=== PATIENT | female | born 1955 | race Caucasian/White ===

== ENCOUNTER 2025-02-23 06:00 | Outpatient (CLI) | payer MEDICARE, SELFPAY ==
--- OUTSIDE RECORDS SUMMARY | 2025-02-23 05:58 | XMS RPT_ITS | CCD ---
Author Organization [facility] Care Team Providers Care Pelts Skinner Name Role Phone LAYO LU Unavailable Unavailable SELF, SELF Unavailable Unavailable RADHA VILLATOROILY Unavailable Unavailable LAYO LU Unavailable Unavailable MarcelinoElise lucas II Unavailable Unavailable Unavailable Unavailable Unavailable VANIA ELIZABETH Attending Unavailable NO, PHYSICIAN Primary Care Unavailable EMPERATRIZ SEGURA Attending Unavailable Neeta Hernandez Primary Care Provider Pending Provider Unavailable Unavailable Unavailable Unavailable Unavailable Unavailable Free, Text Entry Unavailable Unavailable Jax Casey I Unavailable Unavailable Jonnie Whitehead Unavailable Unavailable Pending, Provider Primary Care Unavailable Pending, Provider Primary Care Unavailable Hamad, Dr. Cristina Attending Unavailable Pending, Provider Primary Care Unavailable Pending, Provider Primary Care Unavailable Marcelino II, Dr. Elise Reynoso Attending Unavai lable Pending, Provider Primary Care Unavailable Moomaw, Mr. Jax Blackmon Attending Unavailable Pending, Provider Primary Care Unavailable Josefa, Dr. Cristina Admitting Unavailable Hamad, Dr. Cristina Attending Unavailable Hamad, Dr. Cristina Attending Unavailable Pending, Provider Primary Care Unavailable Hamad, Dr. Cristina Admitting Unavailable Unavailable Primary Care Provider Unavailabl e Generic Provider MD, No Assigned Pcp Primary Car e Provider Unavailable ZENAIDA JOSHI Attending Unavailable BLAYNE LAWRENCE Attending Unavailable Anson Headley Attending Unavailable Anson Headley Referring Unavailable Care Physician, No Primary Primary Care Unava ilable Allergies Allergy Classification Reported Allergen(s) Allergy Type Date of Onset Reaction(s) Facility Opioid Agonists (1 source) Meperidine Drug Allergy 07-02-2005 [facility] Work Phone: (6 sources) gabapentin; Translations: [Neurontin] Drug Allergy Unknown [facility] Work Phone: (8 sources) Meperidine; Translations: [Demerol TABS] Drug Allergy 07-02-2005 Unknown [facility] Work Phone: (1 source) HYDROmorphone Drug Allergy Unknown [facility] (4 sources) gabapentin; Translations: [GABAPENTIN] Drug Allergy 01-05-2018 Unknown [facility] (4 sources) HYDROmorphone; Translations: [HYDROMORPHONE] Drug Allergy 04-12-2024 Unknown [facility] Work Phone: (2 sources) Meperidine; Translations: [MEPERIDINE] Drug Allergy 07-02-2005 [place] (1 source) gabapentin Drug Allergy 02-18-2025 [facility] (1 source) HYDROmorphone Drug Allergy 02-18-2025 [facility] Medications Current Medications Medication Drug Class(es) Dates Sig (Normalized) Sig (Original) acetaminophen 325 mg / oxyCODONE hydrochloride 5 mg oral tablet (2 sources) Opioid Agonist Start: 02-14-2025 take 1 tablet by mouth every six hours for pain oxyCODONE-acetaminophe n (Percocet) 5-325 mg tablet Indications: Ureterolithiasis Take 1 tablet by mouth every 6 hours if needed for severe pain (7 - 10). 12 tablet 02/14/2025 Active Start: 06-21-2005 PERCOCET 5 MG- 325 MG TAB 1 to 3 tablets daily as needed 0 06/21/2005 Active Comment on above: 1 to 3 tablets daily as needed amoxicillin 500 mg oral capsule (1 source) Penicillin-class Antibacterial Start: 025 amoxicillin (Amoxil) 500 mg capsule Take 1 capsule three times daily until gone for flare up 21 capsule 05/06/2024 Active amoxicillin 875 mg / clavulanate 125 mg oral tablet (1 source) Penicillin-class Antibacterial Start: 024 End: 024 take 1 tablet by mouth twice daily in the evening amoxicillin-pot clavulanate (Augmentin) 875-125 mg tablet Indications: Gingival swelling Take 1 tablet by mouth 2 times a day for 7 days. 14 tablet 04/12/2024 2:49 PM EST 04/12/2024 04/19/2024 Active cephalexin 500 mg oral capsule (1 source) Cephalosporin Antibacterial Start: End: take 1 capsule by mouth twice daily cephalexin (Keflex) 500 mg capsule Indications: Acute cystitis with hematuria Take 1 capsule (500 mg) by mouth 2 times a day for 10 days. 20 capsule 02/14/2025 02/24/2025 Active ketorolac tromethamine 10 mg oral tablet (3 sources) Nonsteroidal Anti-inflammatory Drug, Cyclooxygenase Inhibitor Start: take 1 tablet by mouth every six hours for pain ketorolac (Toradol) 10 mg tablet Indications: Ureterolithiasis Take 1 tablet (10 mg) by mouth every 6 hours if needed for moderate pain (4 - 6). 20 tablet 02/14/2025 Active Start: 02-13-2025 End: 02-14-2025 15 mg, intravenous, Once, On Fri02/14/25 at 0025, For 1 dose ondansetron 4 mg disintegrating oral tablet (3 sources) Serotonin-3 Receptor Antagonist Start: 02-14-2025 take 1 tablet by mouth every eight hours for nausea ondansetron ODT (Zofran-ODT) 4 mg disintegrating tablet Indications: Ureterolithiasis Dissolve 1 tablet (4 mg) in the mouth every 8 hours if needed for nausea or vomiting for up to 20 doses. 20 tablet 02/14/2025 Active Start: 02-13-2025 End: 02-14-2025 4 mg, intravenous, Once, On Fri02/14/25 at 0025, For 1 dose, When administering via IV Push, administer over 3-5 minutes. tamsulosin hydrochloride 0.4 mg oral capsule (1 source) alpha-Adrenergic Ciaran Start: 02-14-2025 take 1 capsule by mouth once daily before mealtime tamsulosin (Flomax) 0.4 mg 24 hr capsule Indications: Ureterolithiasis Take 1 capsule (0.4 mg) by mouth once daily in the morning. Take before meals. 10 capsule 02/14/2025 Active Start: 02-14-2025 take 1 capsule by [facility] once daily before mealtime tamsulosin (Flomax) 0.4 mg 24 hr capsule Indications: Ureterolithiasis Take 1 capsule (0.4 mg) by mouth once daily in the morning. Take before meals. 10 capsule 02/14/2025 Active terbinafine hydrochloride 10 mg/ml topical cream (1 source) Allylamine Antifungal Start: 12-29-2024 terbinafine (LamISIL ) 1 % cream Apply a thin film topically to the affected skin area(s) 2-3 times daily until symptoms resolve. 30 g 1 12/29/2024 12:03 PM EDT 12/29/2024 Active Completed/Discontinued Medications Medication Drug Class(es) Dates Sig (Normalized) Sig (Original) acetaminophen 500 mg oral tablet (1 source) Start: 06-21-2003 TYLENOL EX-STR 500MG CAPLET Take two(2) tablets every four(4) to six(6) hours as needed. 0 06/21/2003 Active Comment on above: Take two(2) tablets every four(4) to six(6) hours as needed. betamethasone 0.5 mg/ml / clotrimazole 10 mg/ml topical cream (2 sources) Azole Antifungal, Corticosteroid Start: 08-21-2020 Clotrimazole-Betam ethasone 1-0.05 % External Cream APPLY 1 [facility] Twice daily Quantity: 1 Refills: 2 Ordered: 21-Aug-2020 Elise Marcelino II, MD Start : 21-Aug-2020 Active cefTRIAXone 1000 mg injection (1 source) Cephalosporin Antibacterial Start: 02-13-2025 End: 02-14-2025 1 g, intravenous, at 100 mL/hr, Administer over 30 Minutes, Once, On 02/13/25 at 2340, For 1 dose, premix bag, Suspected Indication (Select all that apply): Urinary Tract Infection, Type of Therapy: Empiric, Type of Urinary Tract Infection: Complicated, Indications: Urinary Tract Infection diazePAM 5 mg oral tablet (1 source) Benzodiazepine Start: 11-12-2005 VALIUM 5 MG TAB as necessary 0 11/12/2005 Active Comment on above: as necessary Ibuprofen (1 source) Nonsteroidal Anti-inflammatory Drug Start: 06-21-2003 MOTRIN IB 200MG TABLET prn 0 06/21/2003 Active Comment on above: prn mirtazapine 30 mg oral tablet (1 source) Start: 06-21-2005 REMERON 30 MG TAB one tab at bedtime as needed 0 06/21/2005 Active Comment on above: one tab at bedtime a s needed 1 ml morphine sulfate 4 mg/ml prefilled syringe (1 source) Opioid Agonist Start: 02-14-2025 End: 02-14-2025 4 mg, intravenous, Once, On 02/14/25 at 0025, For 1 dose MULTIVITAMIN TAB (1 source) Start: 06-17-2005 MULTIVITAMIN TAB Take one(1) tablet daily. 0 06/17/2005 Active Comment on above: Take one(1) tablet d aily. No Reported Medications (3 sources) No Reported Medications Refills: 0 DO Active No Reported Medi cations Refills: 0 Active 1000 ml sodium chloride 9 mg /ml injection (1 source) Start: 02-13-2025 End: 02-14-2025 1,000 mL, intravenous, at 99 9 mL/hr, Administer over 1 Hours, Once, On 02/13/25 at 2100, For 1 dose NEGATED: Highlighted row has not occurred!No Current Medications (1 source) No Current Medic ations Problems Active Problems Problem Classification Problem Date Documented Date Episodic/Chronic Anxiety disorders (1 source) Anxiety disorder, unspecified; Translations: [Anxiety disorder, unspecified] Onset: 06-01-2022 Chronic Aortic; peripheral; and visceral artery aneurysms (1 source) Thoracic aortic ectasia; Translations: [Thoracic aortic ectasia] Onset: 06-01-2022 Chronic Calculus of urinary tract (12 sources) Calcium renal calculus ; Translations: [Calculus of kidney] Onset: 08-16-2021 Episodic Cardiac dysrhythmias (2 sources) Tachycardia; Translations: [Tachycardia, unspecified] 06-01-2022 Episodic Chronic obstructive pulmonary disease and bronchiectasis (1 source) Centrilobular emphysema; Translations: [Centrilobular emphysema] Onset: 05-17-2022 Chronic Conditions associated with dizziness or vertigo (2 sources) Dizziness and giddiness; Translations: [Dizziness and giddiness] Onset: 06-01-2022 Episodic Diverticulosis and diverticulitis (1 source) Diverticulosis of colon; Translations: [Diverticulosis of large intestine without perforation or abscess without bleeding] Onset: 07-16-2005 07-16-2005 Chronic Esophageal disorders (1 source) Gastroesophageal reflux disease; Translations: [Gastro-esophageal reflux disease without esophagitis] 06-17-2005 Chronic Genitourinary symptoms and ill-defined conditions (5 sources) Female stress incontinence; Translations: [Stress incontinence, female] Chronic Genitourinary symptoms and ill-defined conditions (5 sources) Nocturia; Translations: [Nocturia] Episodic Influenza (2 sources) Influenza 06-01-2022 Comment on above: FLU SX Malaise and fatigue (1 source) Other fatigue; Translations: [Other fatigue] Onset: 05-24-2022 Episodic Mycoses (2 sources) Mycosis; Translations: [Candidiasis of unspecified site] Episodic Non-Hodgkin`s lymphoma (10 sources) Non-Hodgkin's lymphoma (clinical); Translations: [Malignant lymphoma of extranodal AND/OR solid organ site] Onset: 05-18-2007 05-18-2007 Chronic Other diseases of kidney and ureters (1 source) Renal mass; Translations: [Other specified disorders of kidney and ureter] 02-14-2025 Chronic Other diseases of kidney and ureters (2 sources) Other specified disorders of kidney and ureter; Translations: [Other specified disorders of kidney and ureter] Onset: 02-13-2025 Chronic Other diseases of kidney and ureters (5 sources) Hydronephrosis; Translations: [Hydronephrosis] Episodic Other eye disorders (5 sources) Vitreous floaters; Translations: [Other vitreous opacities] Chronic Other liver diseases (1 source) Fatty (change of) liver, not elsewhere classified; Translations: [Fatty (change of) liver, not elsewhere classified] Onset: 05-17-2022 Chronic Other lower respiratory disease (2 sources) Shortness of breath; Translations: [Shortness of breath] Onset: 06-01-2022 Episodic Other nervous system disorders (1 source) Disorder of the peripheral nervous system; Translations: [Hereditary and idiopathic neuropathy, unspecified] Onset: 06-23-2006 06-23-2006 Chronic Other nervous system disorders (2 sources) Other disturbances of skin sensation; Translations: [Other disturbances of skin sensation] Onset: 06-01-2022 Episodic Other screening for suspected conditions (not mental disorders or infectious disease) (1 source) Other specified abnormal findings of blood chemistry; Translations: [Other specified abnormal findings of blood chemistry] Onset: 06-01-2022 Episodic Other skin disorders (1 source) Swollen gums; Translations: [Localized swelling, mass and lump, head] 04-12-2024 Episodic Residual codes; unclassified (1 source) Influenza-like symptoms; Translations: [Other general symptoms] 06-01-2022 Episodic Screening and history of mental health and substance abuse codes (1 source) Personal history of nicotine dependence; Translations: [Personal history of nicotine dependence] Onset: 06-01-2022 Episodic Unclassified (1 source) Flu-like symptoms 06-01-2022 Unclassified (1 source) Contact with and (suspected) exposure to COVID-19; Translations: [Contact with and (suspected) exposure to COVID-19] Onset: 06-01-2022 Urinary tract infections (3 sources) Acute cystitis; Translations: [Acute cystitis with hematuria] Onset: 02-13-2025 02-14-2025 Episodic Past or Other Problems Problem Classification Problem Date Documented Da te Episodic/Chronic Hemorrhoids (1 source) Internal hemorrhoids; Translations: [Other hemorrhoids] Onset: 07-16-2005 07-16-2005 Episodic Other connective tissue disease (1 source) Muscle pain; Translations: [Myalgia and myositis, unspecified] Onset: 08-11-2003 08-15-2003 Episodic Other diseases of kidney and ureters (1 source) Disorder of kidney and ureter, unspecified; Translations: [Disorder of kidney and ureter, unspecified] Onset: 08-16-2021 Episodic Other gastrointestinal disorders (1 source) Diarrhea; Translations: [Diarrhea, unspecified] Onset: 07-16-2005 07-16-2005 Episodic Other skin disorders (4 sources) Localized swelling, mass and lump, head; Translations: [Localized swelling, mass and lump, head] Onset: 04-12-2024 Episodic Other upper respiratory infections (3 sources) Acute maxillary sinusitis; Translations: [Acute maxillary sinusitis, unspecified] Onset: 04-12-2024 04-12-2024 Episodic NEGATED: Highlighted row has not occurred!Residual codes; unclassified (4 sources) Disease Episodic Results Test Name Value Interpretation Reference Range Facility Bacteriaon 02-13-2025 Bacteria identified Cx Nom (U) Test: Urine Culture Specimen Source: Clean Catch/Voided Specimen Type: Urine Specimen Date: 02/13/20252305 Result Date: 02/15/202544 Result Status: Final result Abnormal: No Resulting Lab: [facility] [id number] [facility] [id number] CULTURE No growth Normal [facility] Comment on above: Performed By: #### 6 30-4 #### MARION Eddy ([id number]) [facility] ([facility]) [address] [place] [id number] CBC W Auto Differential pane l (Bld)on 02-13-2025 Basophils (Bld) [#/Vol] 0.08 10*3/uL [facility] Basophils/100 WBC (Bld) 0.4 % 0.0 - 2.0 % [facility] Eosinophils (Bld) [#/Vol] 0.34 10*3/uL [facility] Eosinophils/100 WBC (Bld) 1.9 % 0.0 - 6.0 % [facility] Erythrocyte distribution width (RBC) [Ratio] 13.4 % 11.5 - 14.5 % [facility] Hematocrit (Bld) [Volume fraction] 43.0 % 36.0 - 46.0 % [facility] Hemoglobin (Bld) [Mass/Vol] 14.4 g/dL 12.0 - 16.0 g/dL [facility] Immature granulocytes (Bld) [#/Vol] 0.05 10*3/uL [facility] Immature granulocytes/100 WBC (Bld) 0.3 % 0.0 - 0.9 % [facility] Comment on above: Immature Granulocyte Count (IG) includes promyelocytes, myelocytes and metamyelocytes but does not include bands. Percent differential counts (%) should be interpreted in the context of the absolute cell counts (cells/UL). Interpretation and review of laboratory results Abnormal [facility] Lymphocytes (Bld) [#/Vol] 8.70 10*3/uL High [facility] Lymphocytes/100 WBC (Bld) 48.4 % 13.0 - 44.0 % [facility] MCH (RBC) [Entitic mass] 30.4 pg 26.0 - 34.0 pg [facility] MCHC (RBC) [Mass/Vol] 33.5 g/dL 32.0 - 36.0 g/dL [facility] MCV (RBC) [Entitic vol] 91 fL 80 - 100 fL [facility] Monocytes (Bld) [#/Vol] 1.34 10*3/uL High [facility] Monocytes/100 WBC (Bld) 7.5 % 2.0 - 10.0 % [facility] Neutrophils (Bld) [#/Vol] 7.46 10*3/uL [facility] Comment on above: Percent differential counts (%) should be interpreted in the context of the absolute cell counts (cells/uL). Neutrophils/100 WBC (Bld) 41.5 % 40.0 - 80.0 % [facility] Nucleated RBC/100 WBC (Bld) [Ratio] 0.0 % [facility] Platelets (Bld) [#/Vol] 407 10*3/uL [facility] RBC (Bld) [#/Vol] 4.74 10*6/uL [facility] WBC (Bld) [#/Vol] 18.0 10*3/uL High [facility] Basophils (Bld) [#/Vol] 0.08 x10*3/uL Normal 0.00-0.10 [facility] Comment on above: Performed By: #### 5 7021-8 #### YOSHI SANTIAGO ([id number]) [facility] ([facility]) [address] [place] [address] Basophils/100 WBC (Bld) 0.4 % Normal 0.0-2.0 [facility] Comment on above: Performed By: #### 5 7021-8 #### YOSHI SANTIAGO ([id number]) [facility] ([facility]) [address] [place] [address] 92829 Eosinophils (Bld) [#/Vol] 0.34 x10*3/uL Normal 0.00-0.70 [facility] Comment on above: Performed By: #### 5 7021-8 #### YOSHI SANTIAGO ([id number]) [facility] ([facility]) [address] [place] [address] 12596 Eosinophils/100 WBC (Bld) 1.9 % Normal 0.0-6.0 [facility] Comment on above: Performed By: #### 5 7021-8 #### YOSHI SANTIAGO ([id number]) [facility] ([facility]) [address] [place] [address]6459 Erythrocyte distribution width (RBC) [Ratio] 13.4 % Normal 11.5-14.5 [facility] Comment on above: Performed By: #### 5 7021-8 #### YOSHI SANTIAGO ([id number]) [facility] ([facility]) [address] [place] [address] 46491 Hematocrit (Bld) [Volume fraction] 43.0 % Normal 36.0-46.0 [facility] Comment on above: Performed By: #### 5 7021-8 #### YOSHI SANTIAGO ([id number]) [facility] ([facility]) [address] [place] [address]120 Hemoglobin (Bld) [Mass/Vol] 14.4 g/dL Normal 12.0-16.0 [facility] Comment on above: Performed By: #### 5 7021-8 #### YOSHI SANTIAGO ([id number]) [facility] ([facility]) [address] [place] [address] 22956 Immature granulocytes (Bld) [#/Vol] 0.05 x10*3/uL Normal 0.00-0.70 [facility] Comment on above: Performed By: #### 5 7021-8 #### YOSHI SANTIAGO ([id number]) [facility] ([facility]) [address] [place] [address] 08366 Immature granulocytes/100 WBC (Bld) 0.3 % Normal 0.0-0.9 [facility] Comment on above: Result Comment: Gisele ture Granulocyte Count (IG) includes promyelocytes, myelocytes and metamyelocytes but does not include bands. Percent differential counts (%) should be interpreted in the context of the absolute cell counts (cells/UL). Performed By: #### 5 7021-8 #### YOSHI SANTIAGO ([id number]) [facility] ([facility]) [address] [place] [address] 66561 Lymphocytes (Bld) [#/Vol] 8.70 x10*3/uL High 1.20-4.80 [facility] Comment on above: Performed By: #### 5 7021-8 #### YOSHI SANTIAGO ([id number]) [facility] ([facility]) [address] [place] [address] 56782 Lymphocytes/100 WBC (Bld) 48.4 % Normal 13.0-44.0 [facility] Comment on above: Performed By: #### 5 7021-8 #### YOSHI SANTIAGO ([id number]) [facility] ([facility]) [address] [place] [address] 69194 MCH (RBC) [Entitic mass] 30.4 pg Normal 26.0-34.0 [facility] Comment on above: Performed By: #### 5 7021-8 #### YOSHI SANTIAGO ([id number]) [facility] ([facility]) [address] [place] [address] 38050 MCHC (RBC) [Mass/Vol] 33.5 g/dL Normal 32.0-36.0 [facility] Comment on above: Performed By: #### 5 7021-8 #### YOSHI SANTIAGO ([id number]) [facility] ([facility]) [address] [place] [address] 03203 MCV (RBC) [Entitic vol] 91 fL Normal 80-100 [facility] Comment on above: Performed By: #### 5 7021-8 #### YOSHI SANTIAGO ([id number]) [facility] ([facility]) [address] [place] [address] 36218 Monocytes (Bld) [#/Vol] 1.34 x10*3/uL High 0.10-1.00 [facility] Comment on above: Performed By: #### 5 7021-8 #### YOSHI SANTIAGO ([id number]) [facility] ([facility]) [address] [place] [address] 70771 Monocytes/100 WBC (Bld) 7.5 % Normal 2.0-10.0 [facility] Comment on above: Performed By: #### 5 7021-8 #### YOSHI SANTIAGO ([id number]) [facility] ([facility]) [address] [place] [address] 33434 Neutrophils (Bld) [#/Vol] 7.46 x10*3/uL Normal 1.20-7.70 [facility] Comment on above: Result Comment: Perc ent differential counts (%) should be interpreted in the context of the absolute cell counts (cells/uL). Performed By: #### 5 7021-8 #### YOSHI SANTIAGO ([id number]) [facility] ([facility]) [address] [place] [address] 56891 Neutrophils/100 WBC (Bld) 41.5 % Normal 40.0-80.0 [facility] Comment on above: Performed By: #### 5 7021-8 #### YOSHI SANTIAGO ([id number]) [facility] ([facility]) [address] [place] [address] 36342 Nucleated RBC/100 WBC (Bld) [Ratio] 0.0 /100 WBCs Normal 0.0-0.0 [facility] Comment on above: Performed By: #### 5 7021-8 #### YOSHI SANTIAGO ([id number]) [facility] ([facility]) [address] [place] [address] 68482 Platelets (Bld) [#/Vol] 407 x10*3/uL Normal 150-450 [facility] Comment on above: Performed By: #### 5 7021-8 #### YOSHI SANTIAGO ([id number]) [facility] ([facility]) [address] [place] [address] 64949 RBC (Bld) [#/Vol] 4.74 x10*6/uL Normal 4.00-5.20 [facility] Comment on above: Performed By: #### 5 7021-8 #### YOSHI SANTIAGO ([id number]) [facility] ([facility]) [address] [place] [address] 28589 WBC (Bld) [#/Vol] 18.0 x10*3/uL High 4.4-11.3 [facility] Comment on above: Performed By: #### 5 7021-8 #### BELLE PAMELA ([id number]) [facility] ([facility]) [address] [place] [address] CT ABDOMEN PELVIS WO IV CONT [facility] 02-13-2025 CT ABDOMEN PELVIS WO IV CONTRAST Interpreted By: Helene Sun, STUDY: CT ABDOMEN PELVIS WO IV CONTRAST; 02/13/2025 9:41 pm INDICATION: Signs/Symptoms:Right lower flank and lower quadrant pain. COMPARISON: CT abdomen and pelvis 05/17/2022. CT angiogram chest 06/01/2022. ACCESSION NUMBER(S): [id number] ORDERING CLINICIAN: ZENAIDA JOSHI TECHNIQUE: CT of the abdomen and pelvis was performed with no contrast administration. Coronal and sagittal reformats were obtained. FINDINGS: LOWER CHEST: No focal consolidation or pleural effusion. ABDOMEN: LIVER: Unremarkable unenhanced appearance. BILE DUCTS: No obvious dilation. GALLBLADDER: Surgically absent. PANCREAS: No peripancreatic inflammatory changes. SPLEEN: Surgically absent. ADRENAL GLANDS: Unremarkable. KIDNEYS AND URETERS: There is mild right hydronephrosis and dilation of the proximal right ureter. There is 0.7 cm calculus at the proximal right ureter. No left hydronephrosis or hydroureter. There are bilateral renal calculi measuring 0.3 cm at the right kidney and up to 0.6 cm the left kidney. There is a 6.8 x 4.4 x 4.4 cm heterogeneous mass at the left kidney. BOWEL: The stomach is distended with enteric contents. No bowel obstruction. The appendix is normal. VESSELS: Mild atherosclerotic calcifications at the abdominal aorta and its branches. PELVIS: The urinary bladder is decompressed. The uterus is present. PERITONEUM/RETROPERITONEUM/ LYMPH NODES: No free fluid or free air. No retroperitoneal hemorrhage. No pathologically enlarged lymph nodes are identified. ABDOMINAL WALL: Postsurgical changes are noted at the anterior abdominal wall with small fat containing ventral hernias. There is a small fat containing umbilical hernia. BONE AND SOFT TISSUE: Multilevel degenerative changes at the spine. IMPRESSION 1. Right-sided obstructive uropathy with mild right hydronephrosis, dilation of the proximal right ureter and with a 0.7 cm calculus at the proximal right ureter. 2. 6.8 cm heterogeneous mass at the left kidney. This is considered renal cell carcinoma until proven otherwise. Urology consult recommended. 3. Bilateral nephrolithiasis. MACRO: Critical Finding: See findings. Notification was initiated on 02/14/2025 at 1:23 am by Helene Sun. (-YCF-) Instructions: See Findings. Signed by: Helene 02/14/2025 1:28 AM Dictation workstation: [id number] [facility] Comprehensive metabolic 2000 panelon 02-13-2025 Albumin BCP dye [Mass/Vol] 4.3 g/dL 3.4 - 5.0 g/dL [facility] ALP [Catalytic activity/Vol] 64 U/L 33 - 136 U/L [facility] ALT With P-5'-P [Catalytic activity/Vol] 11 U/L 7 - 45 U/L [facility] Comment on above: Patients treated wit h Sulfasalazine may generate falsely decreased results for ALT. Anion gap [Moles/Vol] 13 mmol/L 10 - 20 mmol/L [facility] AST With P-5'-P [Catalytic activity/Vol] 13 U/L 9 - 39 U/L [facility] Bilirubin [Mass/Vol] 0.5 mg/dL 0.0 - 1.2 mg/dL [facility] Calcium [Mass/Vol] 9.8 mg/dL 8.6 - 10. 3 mg/dL [facility] Chloride [Moles/Vol] 103 mmol/L 98 - 107 mmol/L [facility] CO2 [Moles/Vol] 27 mmol/L 21 - 32 mmol/L [facility] Creatinine [Mass/Vol] 0.91 mg/dL 0.50 - 1.05 mg/dL [facility] GFR/1.73 sq M.predicted among non-blacks MDRD (S/P/Bld) [Vol rate/Area] 69 mL/min/{1.73_m2} - PINF [facility] Comment on above: Calculations of eddi mated GFR are performed using the 2020 CKD-EPI Study Refit equation without the race variable for the IDMS-Traceable creatinine methods. https://jasn.asnjournals.org/content//ASN.389456971 8 Glucose [Mass/Vol] 146 mg/dL High 74 - 99 mg/dL [facility] Interpretation and review of laboratory results Abnormal [facility] Potassium [Moles/Vol] 3.8 mmol/L 3.5 - 5.3 mmol/L [facility] Protein [Mass/Vol] 6.9 g/dL 6.4 - 8.2 g/dL [facility] Sodium [Moles/Vol] 139 mmol/L 136 - 145 mmol/L [facility] Urea nitrogen [Mass/Vol] 15 mg/dL 6 - 23 mg/dL [facility] Albumin BCP dye [Mass/Vol] 4.3 g/dL Normal 3.4-5.0 [facility] Comment on above: Performed By: #### 2 4323-8 #### YOSHI SANTIAGO ([id number]) [facility] ([facility]) [address] [place] [address] ALP [Catalytic activity/Vol] 64 U/L Normal 33-136 [facility] Comment on above: Performed By: #### 2 4323-8 #### YOSHI SANTIAGO ([id number]) [facility] ([facility]) [address] [place] [address] ALT With P-5'-P [Catalytic activity/Vol] 11 U/L Normal 7-45 [facility] Comment on above: Result Comment: Isela ents treated with Sulfasalazine may generate falsely decreased results for ALT. Performed By: #### 2 4323-8 #### YOSHI SANTIAGO ([id number]) [facility] ([facility]) [address] [place] [address] 02268 Anion gap [Moles/Vol] 13 mmol/L Normal 10-20 [facility] Comment on above: Performed By: #### 2 4323-8 #### YOSHI SANTIAGO ([id number]) [facility] ([facility]) [address] [place] [address] 28895 AST With P-5'-P [Catalytic activity/Vol] 13 U/L Normal 9-39 [facility] Comment on above: Performed By: #### 2 4323-8 #### YOSHI SANTIAGO ([id number]) [facility] ([facility]) [address] [place] [address] Bilirubin [Mass/Vol] 0.5 mg/dL Normal 0.0-1.2 [facility] Comment on above: Performed By: #### 2 4323-8 #### YOSHI SANTIAGO ([id number]) [facility] ([facility]) [address] [place] [address] Calcium [Mass/Vol] 9.8 mg/dL Normal 8.6-10.3 [facility] Comment on above: Performed By: #### 2 4323-8 #### YOSHI SANTIAGO ([id number]) [facility] ([facility]) [address] [place] [address]9821 Chloride [Moles/Vol] 103 mmol/L Normal 98-107 [facility] Comment on above: Performed By: #### 2 4323-8 #### YOSHI SANTIAGO ([id number]) [facility] ([facility]) [address] [place] [address] CO2 [Moles/Vol] 27 mmol/L Normal 21-32 [facility] Comment on above: Performed By: #### 2 4323-8 #### YOSHI SANTIAGO ([id number]) [facility] ([facility]) [address] [place] [address] 77978 Creatinine [Mass/Vol] 0.91 mg/dL Normal 0.50-1.05 [facility] Comment on above: Performed By: #### 2 4323-8 #### YOSHI SANTIAGO ([id number]) [facility] ([facility]) [address] [place] [address] 05942 Glomerular filtration rate 69 mL/min/1.73m*2 Normal >60 [facility] Comment on above: Result Comment: Calc ulations of estimated GFR are performed using the 2020 CKD-EPI Study Refit equation without the race variable for the IDMS-Traceable creatinine methods. https://jasn.asnjournals.org/content//ASN.985503896 8 Performed By: #### 2 4323-8 #### YOSHI SANTIAGO ([id number]) [facility] ([facility]) [address] [place] [address] 00334 Glucose [Mass/Vol] 146 mg/dL High 74-99 [facility] Comment on above: Performed By: #### 2 4323-8 #### YOSHI SANTIAGO ([id number]) [facility] ([facility]) [address] [place] [address] 65865 Potassium [Moles/Vol] 3.8 mmol/L Normal 3.5-5.3 [facility] Comment on above: Performed By: #### 2 3-8 #### YOSHI SANTIAGO ([id number]) [facility] ([facility]) [address] [place] [address] 87848 Protein [Mass/Vol] 6.9 g/dL Normal 6.4-8.2 [facility] Comment on above: Performed By: #### 2 3-8 #### YOSHI SANTIAGO ([id number]) [facility] ([facility]) [address] [place] [address] 60122 Sodium [Moles/Vol] 139 mmol/L Normal 136-145 [facility] Comment on above: Performed By: #### 2 4323-8 #### YOSHI SANTIAGO ([id number]) [facility] ([facility]) [address] [place] [address] 98484 Urea nitrogen [Mass/Vol] 15 mg/dL Normal 6-23 [facility] Comment on above: Performed By: #### 2 4323-8 #### YOSHI SANTIAGO ([id number]) [facility] ([facility]) [address] [place] [address] 53176 No Panel Informationon 02-13 Interpretation and review of laboratory results Abnormal [facility] Urinalysis complete W Reflex Culture panel (U)on 02-13-2025 Appearance (U) Ex.Turbid Abnormal Clear [facility] Bilirubin (U) [Mass/Vol] Negative NEGATIVE mg/dL [facility] Color (U) Light-Walton Abnormal Light-Yellow , Yellow, Dark-Yellow [facility] Glucose Auto test strip (U) [Mass/Vol] Normal Normal mg/dL [facility] Ketones (U) [Mass/Vol] TRACE Abnormal NEGATIVE mg/dL [facility] Leukocyte esterase Auto test strip Ql (U) 25 Merlin/uL Abnormal NEGATIVE [facility] Nitrite Auto test strip Ql (U) Negative NEGATIVE [facility] pH (U) 5.5 [pH] 5.0, 5.5, 6.0, 6.5, 7.0, 7.5, 8.0 [facility] Protein (U) [Mass/Vol] 100 (2+) Abnormal NEGATIVE, 10 (TRACE), 20 (TRACE) mg/dL [facility] RBC (U) [#/Vol] OVER (3+) Abnormal NEGATIVE mg/dL [facility] Specific gravity (U) [Rel density] 1.028 1.005 - 1.035 [facility] Urobilinogen (U) [Mass/Vol] Normal Normal mg/dL [facility] OVER is reported whe n the result is greater than the clinically reportable range. [facility] Appearance (U) Ex.Turbid Normal Clear [facility] Comment on above: Order Comment: OVER is reported when the result is greater than the clinically reportable range. Performed By: #### 5 8077-9 #### YOSHI SANTIAGO ([id number]) [facility] ([facility]) [address] [place] [address] Bilirubin (U) [Mass/Vol] Negative Normal NEGATIVE [facility] Comment on above: Order Comment: OVER is reported when the result is greater than the clinically reportable range. Performed By: #### 5 8077-9 #### YOSHI SANTIAGO ([id number]) [facility] ([facility]) [address] [place] [address] 99041 Color (U) Light-Walton Normal Light-Yellow , Yellow, Dark-Yellow [facility] Comment on above: Order Comment: OVER is reported when the result is greater than the clinically reportable range. Performed By: #### 5 8077-9 #### YOSHI SANTIAGO ([id number]) [facility] ([facility]) [address] [place] [address] Glucose Auto test strip (U) [Mass/Vol] Normal Normal Normal [facility] Comment on above: Order Comment: OVER is reported when the result is greater than the clinically reportable range. Performed By: #### 5 8077-9 #### YOSHI SANTIAGO ([id number]) [facility] ([facility]) [address] [place] [address] Ketones (U) [Mass/Vol] TRACE Abnormal NEGATIVE [facility] Comment on above: Order Comment: OVER is reported when the result is greater than the clinically reportable range. Performed By: #### 5 8077-9 #### YOSHI SANTIAGO ([id number]) [facility] ([facility]) [address] [place] [address] Leukocyte esterase Auto test strip Ql (U) 25 Merlin/uL Abnormal NEGATIVE [facility] Comment on above: Order Comment: OVER is reported when the result is greater than the clinically reportable range. Performed By: #### 5 8077-9 #### YOSHI SANTIAGO ([id number]) [facility] ([facility]) [address] [place] [address] Nitrite Auto test strip Ql (U) Negative Normal NEGATIVE [facility] Comment on above: Order Comment: OVER is reported when the result is greater than the clinically reportable range. Performed By: #### 5 8077-9 #### YOSHI SANTIAOG ([id number]) [facility] ([facility]) [address] [place] [address] pH (U) 5.5 [pH] Normal 5.0, 5.5, 6.0, 6.5, 7.0, 7.5, 8.0 [facility] Comment on above: Order Comment: OVER is reported when the result is greater than the clinically reportable range. Performed By: #### 5 8077-9 #### YOSHI SANTIAGO ([id number]) [facility] ([place] [address] Protein (U) [Mass/Vol] 100 (2+) Abnormal NEGATIVE, 10 (TRACE), 20 (TRACE) [facility] Comment on above: Order Comment: OVER is reported when the result is greater than the clinically reportable range. Performed By: #### 5 8077-9 #### YOSHI SANTIAGO ([id number]) [facility] ([facility]) [address] [place] [address] RBC (U) [#/Vol] OVER (3+) Abnormal NEGATIVE [facility] Comment on above: Order Comment: OVER is reported when the result is greater than the clinically reportable range. Performed By: #### 5 8077-9 #### YOSHI SANTIAGO ([id number]) [facility] ([facility]) [address] [place] [address] Specific gravity (U) [Rel density] 1.028 Normal 1.005-1.035 [facility] Comment on above: Order Comment: OVER is reported when the result is greater than the clinically reportable range. Performed By: #### 5 8077-9 #### YOSHI SANTIAGO ([id number]) [facility] ([facility]) [address] [place] [address] Urobilinogen (U) [Mass/Vol] Normal Normal Normal [facility] Comment on above: Order Comment: OVER is reported when the result is greater than the clinically reportable range. Performed By: #### 5 8077-9 #### YOSHI SANTIAGO ([id number]) [facility] ([facility]) [address] [place] [address] Urinalysis microscopic panel Auto Ql (U)on 02-13-2025 Calcium oxalate crystals Computer assisted (U) [#/Area] 1+ NONE, 1+ /HPF [facility] Epithelial cells.squamous Auto (Urine sed) [#/Area] 1-9 (SPARSE) Reference range not established. /HPF [facility] Mucus Auto (Urine sed) [#/Area] 2+ Reference range not established. /LPF [facility] RBC Auto (Urine sed) [#/Area] >20 Abnormal NONE, 1-2, 3-5 /HPF [facility] WBC Auto (Urine sed) [#/Area] 11-20 Abnormal 1-5, NONE /HPF [facility] Yeast.budding Computer assisted (U) [#/Area] PRESENT Abnormal NONE /HPF [facility] Calcium oxalate crystals Computer assisted (U) [#/Area] 1+ /HPF Normal NONE, 1+ [facility] Comment on above: Performed By: #### 5 3315-8 #### YOSHI SANTIAGO ([id number]) [facility] ([facility]) [address] [place] [address] Epithelial cells.squamous Auto (Urine sed) [#/Area] 1-9 (SPARSE) Normal Reference range not established. [facility] Comment on above: Performed By: #### 5 5-8 #### YOSHI SANTIAGO ([id number]) [facility] ([facility]) [address] [place] [address] Mucus Auto (Urine sed) [#/Area] 2+ /LPF Normal Reference range not established. [facility] Comment on above: Performed By: #### 5 5-8 #### YOSHI SANTIAGO ([id number]) [facility] ([facility]) [address] [place] [address] RBC Auto (Urine sed) [#/Area] >20 Abnormal NONE, 1-2, 3-5 [facility] Comment on above: Performed By: #### 5 5-8 #### YOSHI SANTIAGO ([id number]) [facility] ([facility]) [address] [place] [address] 84481 WBC Auto (Urine sed) [#/Area] 11-20 Abnormal 1-5, NONE [facility] Comment on above: Performed By: #### 5 5-8 #### YOSHI SNATIAGO ([id number]) [facility] ([facility]) [address] [place] [address] Yeast.budding Computer assisted (U) [#/Area] PRESENT Abnormal NONE [facility] Comment on above: Performed By: #### 5 5-8 #### YOSHI SANTIAGO ([id number]) [facility] ([facility]) [address] [place] [address] 70849 CBC W Auto Differential pane l (Bld)on 04-12-2024 Basophils (Bld) [#/Vol] 0.08 x10*3/uL Normal 0.00-0.10 [facility] Comment on above: Performed By: #### 5 7021-8 #### YOSHI SANTIAGO ([id number]) [facility] ([facility]) [address] [place] [address] 65123 Basophils/100 WBC (Bld) 0.6 % Normal 0.0-2.0 [facility] Comment on above: Performed By: #### 5 7021-8 #### YOSHI SANTIAGO ([id number]) [facility] ([facility]) [address] [place] [address] 49166 Eosinophils (Bld) [#/Vol] 0.30 x10*3/uL Normal 0.00-0.70 [facility] Comment on above: Performed By: #### 5 7021-8 #### YOSHI SANTIAGO ([id number]) [facility] ([facility]) [address] [place] [address] 92457 Eosinophils/100 WBC (Bld) 2.1 % Normal 0.0-6.0 [facility] Comment on above: Performed By: #### 5 7021-8 #### YOSHI SANTIAGO ([id number]) [facility] ([facility]) [address] [place] [address] 96160 Erythrocyte distribution width (RBC) [Ratio] 13.7 % Normal 11.5-14.5 [facility] Comment on above: Performed By: #### 5 7021-8 #### YOSHI SANTIAGO ([id number]) [facility] ([facility]) [address] [place] [address] 77515 Hematocrit (Bld) [Volume fraction] 46.0 % Normal 36.0-46.0 [facility] Comment on above: Performed By: #### 5 7021-8 #### YOSHI SANTIAGO ([id number]) [facility] ([facility]) [address] [place] [address] 81470 Hemoglobin (Bld) [Mass/Vol] 14.7 g/dL Normal 12.0-16.0 [facility] Comment on above: Performed By: #### 5 7021-8 #### YOSHI SANTIAGO ([id number]) [facility] ([facility]) [address] [place] [address] 19283 Immature granulocytes (Bld) [#/Vol] 0.03 x10*3/uL Normal 0.00-0.70 [facility] Comment on above: Performed By: #### 5 7021-8 #### YOSHI SANTIAGO ([id number]) [facility] ([facility]) [address] [place] [address] 04076 Immature granulocytes/100 WBC (Bld) 0.2 % Normal 0.0-0.9 [facility] Comment on above: Result Comment: Gisele ture Granulocyte Count (IG) includes promyelocytes, myelocytes and metamyelocytes but does not include bands. Percent differential counts (%) should be interpreted in the context of the absolute cell counts (cells/UL). Performed By: #### 5 7021-8 #### YOSHI SANTIAGO ([id number]) [facility] ([facility]) [address] [place] [address] 17616 Lymphocytes (Bld) [#/Vol] 8.34 x10*3/uL High 1.20-4.80 [facility] Comment on above: Performed By: #### 5 7021-8 #### YOSHI SANTIAGO ([id number]) [facility] ([facility]) [address] [place] [address] 42592 Lymphocytes/100 WBC (Bld) 57.6 % Normal 13.0-44.0 [facility] Comment on above: Performed By: #### 5 7021-8 #### YOSHI SANTIAGO ([id number]) [facility] ([facility]) [address] [place] [address] 06706 MCH (RBC) [Entitic mass] 30.3 pg Normal 26.0-34.0 [facility] Comment on above: Performed By: #### 5 7021-8 #### YOSHI SANTIAGO ([id number]) [facility] ([facility]) [address] [place] [address] 51325 MCHC (RBC) [Mass/Vol] 32.0 g/dL Normal 32.0-36.0 [facility] Comment on above: Performed By: #### 5 7021-8 #### YOSHI SANTIAGO ([id number]) [facility] ([facility]) [address] [place] [address] 25669 MCV (RBC) [Entitic vol] 95 fL Normal 80-100 [facility] Comment on above: Performed By: #### 5 7021-8 #### YOSHI SANTIAGO ([id number]) [facility] ([facility]) [address] [place] [address] 76585 Monocytes (Bld) [#/Vol] 1.17 x10*3/uL High 0.10-1.00 [facility] Comment on above: Performed By: #### 5 7021-8 #### YOSHI SANTIAGO ([id number]) [facility] ([facility]) [address] [place] [address] 48792 Monocytes/100 WBC (Bld) 8.1 % Normal 2.0-10.0 [facility] Comment on above: Performed By: #### 5 7021-8 #### YOSHI SANTIAGO ([id number]) [facility] ([facility]) [address] [place] [address] 25241 Neutrophils (Bld) [#/Vol] 4.56 x10*3/uL Normal 1.20-7.70 [facility] Comment on above: Result Comment: Perc ent differential counts (%) should be interpreted in the context of the absolute cell counts (cells/uL). Performed By: #### 5 7021-8 #### YOSHI SANTIAGO ([id number]) [facility] ([facility]) [address] [place] [address] 68264 Neutrophils/100 WBC (Bld) 31.4 % Normal 40.0-80.0 [facility] Comment on above: Performed By: #### 5 7021-8 #### YOSHI SANTIAGO ([id number]) [facility] ([facility]) [address] [place] [address] 77652 Nucleated RBC/100 WBC (Bld) [Ratio] 0.0 /100 WBCs Normal 0.0-0.0 [facility] Comment on above: Performed By: #### 5 7021-8 #### YOSHI SANTIAGO ([id number]) [facility] ([facility]) [address] [place] [address] 17206 Platelets (Bld) [#/Vol] 426 x10*3/uL Normal 150-450 [facility] Comment on above: Performed By: #### 5 7021-8 #### YOSHI SANTIAGO ([id number]) [facility] ([facility]) [address] [place] [address] 45218 RBC (Bld) [#/Vol] 4.85 x10*6/uL Normal 4.00-5.[address] [facility] Comment on above: Performed By: #### 5 7021-8 #### YOSHI SANTIAGO ([id number]) [facility] ([facility]) [address] [place] [address] 76237 WBC (Bld) [#/Vol] 14.5 x10*3/uL High 4.4-11.[address] [facility] Comment on above: Performed By: #### 5 7021-8 #### YOSHI SANTIAGO ([id number]) [facility] ([facility]) [address] [place] [address] 51988 AMB - Narrative Note Nursing -PALLIATIVEon 06-12-2022 AMB - Narrative Note Nursing-PALLIATIVE Topic and Description: Topic: PALLIATIVE Description: 3RD REFERRAL FAXED FOR PALLIATIVE CARE Electronic Signatures: Rebecca Carballo (RN) (Signed 12-Jun-2022 08:36) Authored: Topic and Description Last Updated: 12-Jun-2022 08:36 by Rebecca Carballo (SONIA) Normal [facility] FLOW CYTOMETRY WITH PATH REV IEW AND MOL/FISH REFLEX,BLOODon 06-03-2022 CYTOGENETICS/MOLEC ULAR TEST ORDERED NO Normal [facility] Comment on above: Performed By: #### F OLA2 #### [address] [address] SURF MARKERS >15,PATH REVon 06-03-2022 PATH REV. >15 MARKERS CANDIE Normal [facility] Comment on above: Result Comment: By h er/his signature above, the Pathologist listed as making the final interpretation certifies that she/he has personally reviewed this case. Performed By: #### F OLA2 #### [address] [address] BASIC METABOLIC PANELon 05-22 Anion gap [Moles/Vol] 17 mmol/L Normal 10 - 20 [facility] Comment on above: Performed By: #### B MP #### [address] [address] Calcium [Mass/Vol] 9.8 mg/dL Normal 8.6 - 10.3 [facility] Comment on above: Performed By: #### B MP #### [address] [address] Chloride [Moles/Vol] 106 mmol/L Normal 98 - 107 [facility] Comment on above: Performed By: #### B MP #### [address] [address] Creatinine [Mass/Vol] 0.70 mg/dL Normal 0.50 - 1.05 [facility] Comment on above: Performed By: #### B MP #### [address] [address] eGFR FEMALE >90 Normal >90 [facility] Comment on above: Result Comment: CALC ULATIONS OF ESTIMATED GFR ARE PERFORMED USING THE 2020 CKD-EPI STUDY REFIT EQUATION WITHOUT THE RACE VARIABLE FOR THE IDMS-TRACEABLE CREATININE METHODS. https://jasn.asnjournals.org/content/early/ASN.091302403 8 Performed By: #### B MP #### [address] [address] Glucose [Mass/Vol] 110 mg/dL High 74 - 99 [facility] Comment on above: Performed By: #### B MP #### [address] [address] HCO3 (Bld) [Moles/Vol] 19 mmol/L Low 21 - 32 [facility] Comment on above: Performed By: #### B MP #### [address] [address] Potassium [Moles/Vol] 3.8 mmol/L Normal 3.5 - 5.3 [facility] Comment on above: Performed By: #### B MP #### [place] [id number] Sodium [Moles/Vol] 138 mmol/L Normal 136 - 145 [facility] Comment on above: Performed By: #### B MP #### [place] [id number] Urea nitrogen [Mass/Vol] 15 mg/dL Normal 6 - 23 [facility] Comment on above: Performed By: #### B MP #### [place] [id number] BNPon 06-01-2022 Natriuretic peptide B (Bld) [Mass/Vol] 26 pg/mL Normal 0 - 99 [facility] Comment on above: Result Comment: . <1 00 pg/mL - Heart failure unlikely 100-299 pg/mL - Intermediate probability of acute heart . failure exacerbation. Correlate with clinical . context and patient history. >=300 pg/mL - Heart Failure likely. Correlate with clinical . context and patient history. BNP testing is performed using different testing methodology at [facility] than at other [facility]. Direct result comparisons should only be made within the same method. Performed By: #### B NP2 ####[address] [address] CBC AND DIFFERENTIALon 06-01 % AUTOMATED IMMATURE GRAN 0.2 % Normal 0.0 - 0.9 [facility] Comment on above: Result Comment: Gisele ture Granulocyte Count (IG) includes promyelocytes, myelocytes and metamyelocytes but does not include bands. Percent differential counts (%) should be interpreted in the context of the absolute cell counts (cells/L). Performed By: #### C BCDF #### [address] [address] Basophils (Bld) [#/Vol] 0.07 10*3/uL Normal 0.00 - 0.10 [facility] Comment on above: Performed By: #### C BCDF #### [address] [address] Basophils/100 WBC (Bld) 0.6 % Normal 0.0 - 2.0 [facility] Comment on above: Performed By: #### C BCDF #### [address] [address] Eosinophils (Bld) [#/Vol] 0.14 10*3/uL Normal 0.00 - 0.70 [facility] [facility] Comment on above: Performed By: #### C BCDF #### [address] [address] Eosinophils/100 WBC (Bld) 1.1 % Normal 0.0 - 6.0 [facility] Comment on above: Performed By: #### C BCDF #### [address] [address] Erythrocyte distribution width (RBC) [Ratio] 13.2 % Normal 11.5 - 14.5 [facility] Comment on above: Performed By: #### C BCDF #### [address] [address] Hematocrit (Bld) [Volume fraction] 44.2 % Normal 36.0 - 46.0 [facility] Comment on above: Performed By: #### C BCDF #### [address] [address] Hemoglobin (Bld) [Mass/Vol] 14.9 g/dL Normal 12.0 - 16.0 [facility] Comment on above: Performed By: #### C BCDF #### [address] [address] Lymphocytes (Bld) [#/Vol] 7.35 10*3/uL High 1.20 - 4.80 [facility] Comment on above: Performed By: #### C BCDF #### [address] [address] Lymphocytes/100 WBC (Bld) 58.9 % Normal 13.0 - 44.0 [facility] Comment on above: Performed By: #### C BCDF #### [address] [address] MCHC (RBC) [Mass/Vol] 33.7 g/dL Normal 32.0 - 36.0 [facility] Comment on above: Performed By: #### C BCDF #### [address] [address] MCV (RBC) [Entitic vol] 92 fL Normal 80 - 100 [facility] Comment on above: Performed By: #### C BCDF #### [address] [address] Monocytes (Bld) [#/Vol] 0.97 10*3/uL Normal 0.10 - 1.00 [facility] Comment on above: Performed By: #### C BCDF #### [address] [address] Monocytes/100 WBC (Bld) 7.8 % Normal 2.0 - 10.0 [facility] Comment on above: Performed By: #### C BCDF #### [address] [address] Neutrophils (Bld) [#/Vol] 3.93 10*3/uL Normal 1.20 - 7.70 [facility] Comment on above: Result Comment: Perc ent differential counts (%) should be interpreted in the context of the absolute cell counts (cells/L). Performed By: #### C BCDF #### [address] [address] Neutrophils/100 WBC (Bld) 31.4 % Normal 40.0 - 80.0 [facility] Comment on above: Performed By: #### C BCDF #### [address] [address] Platelets (Bld) [#/Vol] 429 10*3/uL Normal 150 - 450 [facility] Comment on above: Performed By: #### C BCDF #### [address] [place] [address] RBC 4.83 x10E12/L Normal 4.00 - 5.20 [facility] Comment on above: Performed By: #### C BCDF #### [address] [place] [address] WBC (Bld) [#/Vol] 12.5 10*3/uL High 4.4 - 11.[address] [facility] Comment on above: Performed By: #### C BCDF #### [address] [address] [address] ANGIO CHEST FOR PEon - CT ANGIO CHEST FOR PE Patient Name: DANITZA CLINE STUDY: CT ANGIO CHEST FOR PE; 06/01/2022 1:00 pm INDICATION: elevated d dimer . COMPARISON: CT chest, abdomen and pelvis 05/17/2022 ACCESSION NUMBER(S): [id number] ORDERING CLINICIAN: JAX CASEY TECHNIQUE: Helical data acquisition of the chest was obtained after administration of 90ml IV Omnipaque 350. Images were reformatted in coronal and sagittal planes. Axial and coronal MIP images were created and reviewed. FINDINGS: POTENTIAL LIMITATIONS OF THE STUDY: None HEART AND VESSELS: No discrete filling defects within the main pulmonary artery or its branches. Main pulmonary artery and its branches are normal in caliber. 3.1 cm ectasia ascending thoracic aorta. No coronary artery calcifications are seen.The study is not optimized for evaluation of coronary arteries. The cardiac chambers are not enlarged. No evidence of pericardial effusion. MEDIASTINUM AND ROSA, LOWER NECK AND AXILLA: The visualized thyroid gland is within normal limits. No evidence of thoracic lymphadenopathy by CT criteria. Esophagus appears within normal limits as seen. LUNGS AND AIRWAYS: The trachea and central airways are patent. No endobronchial lesion.Mild upper lobe predominant centrilobular emphysema. Patchy opacities in the lung bases compatible atelectasis. No suspicious pulmonary nodule. No pneumothorax. No pleural effusion. No focal consolidation. UPPER ABDOMEN: The visualized subdiaphragmatic structures demonstrate no remarkable findings. CHEST WALL AND OSSEOUS STRUCTURES: There are no suspicious osseous lesions. Multilevel degenerative changes are present IMPRESSION: 1. No evidence of pulmonary embolism or acute findings in the thorax. 2. Bibasilar atelectasis. 3. 3.1 cm ascending thoracic aorta ectasia. Electronically signed by: KELLY SMITH MD [facility] Covid 19 Resultson 3 SARS-CoV-2 (COVID-19) RNA ABILIO+probe Ql (Unsp spec) NEGATIVE COVID-19 Test Coronaviruses are common world-wide and are the cause of many common colds. SARS-COV2 is a new coronavirus that began circulating worldwide in 2019 so we are calling it COVID-19. It has been estimated that four out of five patients with COVID-19 will recover at home without the need for medical attention. Symptoms of COVID-19 may include cough, fever, shortness of breath, loss of taste or smell and other flu-like symptoms including chills, sore muscles, sore throat, and headache. Severe illness is more common in older people and people with other health problems such as high blood pressure, obesity, and immune system problems. If the test is positive, you have COVID-19. You will be contacted by the ordering physicians office and instructed to remain on home isolation, in accordance with CDC guidelines. You may also be contacted by the [facility] to see if any of your close contacts may have been exposed to the virus and need to quarantine. If the test is negative, you likely do not have COVID-19 at this time, but you still may have a different illness that can spread to other people (like Influenza, or the Flu) and could still be at risk for getting COVID-19. We recommend that you stay away from other people to limit the spread of illness until your symptoms are improving and you are fever-free for 24 hours without the use of fever lowering medications such as acetaminophen or ibuprofen. No test is 100% accurate so if you are still concerned you may have COVID-19, talk to your doctor about the need to continue to stay away from others. Medicines Unless your provider told you not to use the following: Acetaminophen (Tylenol and others) is generally safe. Anti-inflammatory medications, such as Ibuprofen (Advil or Motrin) or Naproxen (Aleve) can also be used. Cevy-wbf-knvcblg cough and cold medicines can be used according to the instructions on the package. Some dlpm-owd-fmsuofb medicines also contain acetaminophen. Make sure you are not taking more than your recommended dose. For those not hospitalized, there is no specific treatment available for this illness. Antibiotics do not treat Coronaviruses. Follow-Up Follow up with your doctor by scheduling a virtual visit or consider follow-up at one of our urgent care fever clinics. If you are having difficulty breathing, or are very weak and having difficulty standing, this is a medical emergency. Call 911 or have someone take you to the nearest emergency room immediately. If possible, wear a facemask. Additional guidance from the CDC for patients who tested POSITIVE for COVID-19 How to isolate: Isolate yourself in a specific room at home and limit your contact with others. Use a separate bathroom from other members of the household, when possible. Leave home only to get essential medical care. Do not go to work, school or public areas. Avoid using public transportation, ride-sharing, or taxis. Restrict contact with pets and other animals. If you must care for your pet or be around animals while you are sick, wash your hands before and after your interaction and wear a facemask. Make sure that shared spaces in the home have good airflow, such as by an air conditioner or an opened window, weather permitting. Personal Hygiene Procedures: Wear a face mask when in the same room as other people or pets. If a face mask interferes with your breathing, others should wear a mask when sharing space with you. Frequent hand-washing: wash your hands with soap and water for at least 20 seconds. If soap and water are not available, use alcohol-based hand stripper machine operator. Avoid touching your eyes, nose, and mouth with unwashed hands. Household Hygiene Procedures: Avoid sharing personal household items such as dishes, glassware, cups, eating utensils, towels or bedding with other people or pets in your home. After use, these items should be washed with soap and hot water. Disinfect all high-touch surfaces every day with antibacterial cleaning solutions such as Lysol wipes, bleach, cleansers, etc. High-touch surfaces include tabletops, doorknobs, bathroom fixtures, toilets, phones, keyboards, tablets and bedside tables. Immediately clean any surfaces that may have blood, poop or body fluids on them, using antibacterial cleaning solutions such as Lysol wipes, bleach, cleansers, etc. If clothing or bedding come into contact with blood, poop or body fluids, they should be washed immediately. Follow the directions on the laundry detergent and clothing labels but hot water is recommended when possible. Stopping home isolation precautions: If possible, consult your doctor before stopping home isolation precautions. According to the CDC, you can discontinue home isolation precautions when you have met both of these criteria: Your fever and respiratory symptoms have been gone for 24 yasir (more content not included)... Normal [facility] D-DIMER, VTE EXCLUSIONon D-DIMER, VTE EXCLUSION 662 ng/mL FEU Abnormal < or = 500 [facility] Comment on above: Result Comment: The VTE Exclusion D-Dimer assay is reported in ng/mL Fibrinogen Equivalent Units (FEU). Per manufacturers instructions for use, a value of less than 500 ng/mL (FEU) may help to exclude DVT or PE in outpatients when the assay is used with a clinical pretest probability assessment. ([facility]EM[facility] must utilize and document eCalc Wells Score Deep Vein Thrombosis Risk for DVT exclusion only; Emergency Department should utilize Guidelines for Emergency Department Use of the VTE Exclusion D-Dimer and Clinical Pretest probability assessment model for DVT or PE exclusion.) Performed By: #### D IMEX ####[place] [address] INFLUENZA A/B, COVID 2019 PC R,SYMPTOMATICon 06-01-2022 INFLUENZA A, PCR Not detected Normal Not Detected [facility] Comment on above: Result Comment: Resp iratory virus testing is performed routinely by PCR for Influenza A/B and RSV. Not Detected results do not preclude Influenza A/B or RSV infections since the adequacy of sample collection or low viral burden may impact the clinical sensitivity of this test method. Performed By: #### C OINP #### [place] [address] INFLUENZA B, PCR Not detected Normal Not Detected [facility] Comment on above: Result Comment: Resp iratory virus testing is performed routinely by PCR for Influenza A/B and RSV. Not Detected results do not preclude Influenza A/B or RSV infections since the adequacy of sample collection or low viral burden may impact the clinical sensitivity of this test method. Performed By: #### C OINP #### [place] [address] SARS-CoV-2 (COVID-19) RNA ABILIO+probe Ql (Unsp spec) Not detected Normal Not Detected [facility] Comment on above: Result Comment: . This test has received FDA Emergency Use Authorization (EUA) and has been verified by [facility]. This test is only authorized for the duration of time that circumstances exist to justify the authorization of the emergency use of in vitro diagnostic tests for the detection of SARS-CoV-2 virus and/or diagnosis of COVID-19 infection under section 564(b)(1) of the Act, 21 U.S.C. 360bbb-3(b)(1), unless the authorization is terminated or revoked sooner. [facility] is certified under CLIA-88 as qualified to perform high complexity testing. Testing is performed in the [facility] laboratory located at [address] [place] [address]. SARS-CoV-2/Flu/RSV Multiplex Test: Fact sheet for providers: https://www.fda.gov/media/791591/download Fact sheet for patients: https://www.fda.gov/media/452407/download Performed By: #### C OINP #### [place] [address] Lab Specimen Source Nasal, Nasopharyngeal Normal [facility] Comment on above: Performed By: #### C OINP #### [place] [address] Provider Note - ED v3on 05-22 Provider Note - ED v3 Provider Note: Chart Review: ED NOTES ED NOTES: HPI: Patient presents the ER today with multiple complaints. She states that she has had flulike symptoms for the last 4 days with burning in her left chest and arm. She also states she occasionally feels lightheaded and has a headache. She states that the burning in her arm has been going on for at least 2 weeks and she feels as though her hands and feet are much colder than normal for the last several weeks. She notes a change in her voice and states she feels somewhat short of breath. She states that she has not been eating as much for the last several weeks. She does deny any urinary burning or frequency or abdominal pain. Medical/Family HX: Non-Hodgkin's lymphoma, splenectomy, anxiety, active smoker Physical Exam I have reviewed the triage vital signs. Const: Well nourished, well developed, appears stated age, no acute distress, mildly anxious Eyes: PERRL, EOM intact, no conjunctival injection, vision grossly normal HENT: Neck supple without meningismus , Moist mucous membranes, no pharyengeal swelling or exudate CV: Regular rate and rhythm, Warm, well-perfused extremities 2+ pedal pulses bilaterally. Chest non tender RESP: Lungs clear bilaterally, Unlabored respiratory effort GI: soft, non-tender, non-distended, no masses : MSK: No gross deformities appreciated Back: Non tender, no pain with ROM Skin: Warm, dry. No rashes Neuro: Alert and oriented x4, GCS 15 , ui ux engineer II-XII grossly intact. Sensation and motor function of extremities grossly intact. Psych: Appropriate mood and affect. I have reviewed and confirmed nurses/medics notes for patient past, social and family history. Portions of this note were dictated by speech recognition. An attempt at proof reading was made to minimize errors. Minor errors in dough sheeter may be present. HISTORY OF PRESENTING ILLNESS DANITZA is a 66 year old Female and was seen by me at 01-Jun-2022 10:34 for a chief complaint of multiple medical complaints (Patient has multiple medical complaints, states her left arm has been burning for awhile, also complains of shortness of breath since Friday, chest burning that started today, complains of lightheadedness for awhile, states her throat is hoarse. also states shes been waking up with cold hands and feet, and feeling sweaty and chilled. Denies fever. Patient also states she hasn't had an appetite for several weeks, also thinks she has a hemorrhoid.)(1). Triage Information: Most recent Vital Sign Value Date Temp (F): 98.3 06-01-2022 10:38 Temp (C): 36.8 06-01-2022 10:38 Heart Rate (beats/min): 103 06-01-2022 10:38 Respirations (breaths/min): 16 06-01-2022 10:38 SpO2 (%): 99 06-01-2022 10:38 BP Systolic (mm Hg): 156 06-01-2022 10:38 BP Diastolic (mm Hg): 97 06-01-2022 10:38 PAST MEDICAL HISTORY ALLERGIES/INTOLERANCES: Allergy Allergen: Demerol HCl Type: Drug Reaction: Unknown Allergen: Dilaudid Type: Drug Reaction: Unknown Allergen: Neurontin Type: Drug Reaction: Unknown HEALTH HISTORY: Medical History Name:Non-Hodgkin's lymphoma Code:C85.90 Name:Neuralgia Code:M79.2 Name:Fatigue Code:R53.83 OUTPATIENT MEDICATIONS: Home Medications Review Status for Reconciliation: Complete Med Status: No Current Medications SIGNIFICANT EVENTS: Clinical Events Description:Surgical Procedure Additional Notes:1. R ESWL; Description:Surgical Procedure Additional Notes:1. R ESWL; Past Medical History Description:KIDNEY STONES Description:Fibromyalgia Description:NON HODGKINS LYMPHOMA Description:NEUROPATHY Past Surgical History Description:SPLENECTOMY CRITICAL CARE RESULTS: Recent Lab Results: I have reviewed these laboratory results: Troponin I, High Sensitivity Trending View [id number] 11:56:00 01-Jun-2022 11:08:00 Troponin I, High Sensitivity5 5 Influenza A/B,Covid 2019 PCR,Symptomatic 01-Jun-2022 11:46:00 ResultValue Fluid Source Nasal, Nasopharyngeal Influenza A PCR NOT DETECTED Reference Range: Not Detected Respiratory virus testing is performed routinely by PCR for Influenza A/B and RSV. Not Detected results do not preclude Influenza A/B or RSV infections since the adequacy of sample collection or lo Influenza B PCR NOT DETECTED Reference Range: Not Detected Respiratory virus testing is performed routinely by PCR for Influenza A/B and RSV. Not Detected results do not preclude Influenza A/B or RSV infections since the adequacy of sample collection or lo Coronavirus 2019,PCR NOT DETECTED Reference Range: Not Detected .This test has received FDA Emergency Use Authorization (EUA) and has been verified by [facility]. This test is only authorized for the duration of time that circum Complete Blood Count + Differential 01-Jun-2022 11:08:0 (more content not included)... Normal [facility] Risk Screen - Adult Emergenc yon 06-01-2022 Risk Screen - Adult Emergency Preferred Language: Preferred Language: Preferred Language for Discussing Health Care (patient/designee)Latvian Patient Preferred Pharmacy: Patient Preferred Pharmacy Statement: I have reviewed and updated the patient's preferred pharmacy selection for today's visit. Advanced Directives: Advance Directive/DNRno Advance Directive Information Givenpatient/family declined Family Violence Adult: Abuse Screen: Are you or have you been threatened or abused physically, emotionally, or sexually by anyoneno Learning Assessment (Patient): Learning Assessment (Patient): Patient is Able to be Assessed for Learningyes Factors Influencing Readiness to Learninterest in learning Factors that Impact Ability to Learnnone Devices/Methods Used to Communicatenone Learning Preferencesverbal instruction Cultural Considerationsnone Developmental Considerationsnone Mosque Considerationsnone Learning Assessment (Other Learner): Learning Assessment (Other Learner): Other learner availableno Pressure Injury/TB/Substance: Pressure Injury: Pressure Injury Present on Admissionno Do you have a coughno Smoking Statuslight user (uses <10 cig/day, OR <0.5 ppd, OR 1 can/pouch loose leaf tobacco per week, OR <0.5 vape pods per day) Tobacco Cessation Education (provide if tobacco use within the last 12 mos) patient declined Alcohol Useoccasionally Drug Usedenies Admission Risk Screen: Significant IndicatorsComplete CAGE: CAGE: Is this an injured patient at a Tra[place] Center [place]/[place]): no Electronic Signatures: Pepper Dove (SONIA) (Signed 01-Jun-2022 10:43) Authored: Preferred Language, Patient Preferred Pharmacy, Advanced Directives, Family Violence Adult, Learning Assessment (Patient), Learning Assessment (Other Learner), Pressure Injury/TB/Substance, Pressure Injury, CAGE Last Updated: 01-Jun-2022 10:43 by Pepper Dove (SONIA) Normal [facility] TROPONIN I, HIGH SENSITIVITY on 06-01-2022 TROPONIN I, HIGH SENSITIVITY 5 ng/L Normal 0 - 13 [facility] Comment on above: Result Comment: . Less than 99th percentile of normal range cutoff- Female and children under 18 years old <14 ng/L; Male <21 ng/L: Negative Repeat testing should be performed if clinically indicated. . Female and children under 18 years old 14-50 ng/L; Male 21-50 ng/L: Consistent with possible cardiac damage and possible increased clinical risk. Serial measurements may help to assess extent of myocardial damage. . >50 ng/L: Consistent with cardiac damage, increased clinical risk and myocardial infarction. Serial measurements may help assess extent of myocardial damage. . NOTE: Children less than 1 year old may have higher baseline troponin levels and results should be interpreted in conjunction with the overall clinical context. . NOTE: Troponin I testing is performed using a different testing methodology at [facility] than at other [facility]. Direct result comparisons should only be made within the same method. Performed By: #### T [facility] #### [place] [address] [id number] TROPONIN I, HIGH SENSITIVITY 5 ng/L Normal 0 - 13 [facility] Comment on above: Result Comment: . Less than 99th percentile of normal range cutoff- Female and children under 18 years old <14 ng/L; Male <21 ng/L: Negative Repeat testing should be performed if clinically indicated. . Female and children under 18 years old 14-50 ng/L; Male 21-50 ng/L: Consistent with possible cardiac damage and possible increased clinical risk. Serial measurements may help to assess extent of myocardial damage. . >50 ng/L: Consistent with cardiac damage, increased clinical risk and myocardial infarction. Serial measurements may help assess extent of myocardial damage. . NOTE: Children less than 1 year old may have higher baseline troponin levels and results should be interpreted in conjunction with the overall clinical context. . NOTE: Troponin I testing is performed using a different testing methodology at [facility] than at other [facility]. Direct result comparisons should only be made within the same method. Performed By: #### T [facility] #### [address] [address] Triage - EDon 06-01-2022 Triage - ED Chart Review: PRIMARY ASSESSMENT DANITZA CLINE's primary assessment is Within Defined Limits. The airway is open and patent. Breathing spontaneous and unlabored with clear breath sounds bilaterally. Circulation is normal with good peripheral pulses. Skin is warm and dry and color is normal for race. ARRIVAL INFORMATION Means of Arrival: Ambulatory Mode of Arrival: private vehicle Accompanied By: self Language: Spoken Language Preferred: Latvian CHIEF COMPLAINT DANITZA CLINE is a Female patient with a chief complaint of multiple medical complaints (Patient has multiple medical complaints, states her left arm has been burning for awhile, also complains of shortness of breath since Friday, chest burning that started today, complains of lightheadedness for awhile, states her throat is hoarse. also states shes been waking up with cold hands and feet, and feeling sweaty and chilled. Denies fever. Patient also states she hasn't had an appetite for several weeks, also thinks she has a hemorrhoid.). Triage Date/Time: 01-Jun-2022 10:32 LG: 3V Pain Rating (0-10): 2 = Mild Vital Signs: Temperature: 98.3F ( 36.8C) taken temporal Blood Pressure: 156/97 Mean: Heart Rate: 103 Respiratory Rate: 16 Pulse Oximetry: 99% on room air, no respiratory support. Height: 5 feet 4.00 inches. 162.5 CM Weight: pounds. Calculated kg. [place] Coma Scale: Best Eye Response: (E4) spontaneous Best Motor Response: (M6) obeys commands Best Verbal Response: (V5) oriented Lu Score: 15 Allergies: yes Mask applied: yes Patient has homicidal thoughts: no Risk Screens Suicide Risk Screen In the Past Month: Have you wished you were or wished you could go to sleep and not wake up no In the Past Month: Have you had any actual thoughts of killing yourself no In Your Lifetime: Have you ever done anything, started to do anything, or prepared to do anything to end your life no Interventions: [place] Fall Interventions: LOW INTERVENTIONS: *patient oriented to surroundings and call system, * patient/family falls education completed and documented, *patients fall status communicated during bedside handoff, *whiteboard updated, *mode of toileting discussed with patient, *bed in low position with brakes locked, *call light in reach, * non-skid footwear TRAVEL HISTORY Travel History Coronavirus Screening: no exposure or symptoms Travel Exposure History: NO travel to International locations in the past 30 days PAIN Pain Scale Used: SERA Pain Rating (0-10): 2 = Mild Past Medical History: Past Medical History Reviewedyes Electronic Signatures: Pepper Dove (SONIA) (Signed 01-Jun-2022 11:00) Authored: Quick Triage, Risk Screens, Pain, Arrival, ABCD, Travel History, Chart Review, Scores, Past Medical History Last Updated: 01-Jun-2022 11:00 by Pepper Dove (RN) Normal [facility] FLOW CYTOMETRY WITH PATH REV IEW AND MOL/FISH REFLEX,BLOODon 05-31-2022 PATH REV-FLOW WITH MOL/FISH REFLEX CANDIE Normal [facility] Comment on above: Result Comment: By h er/his signature above, the Pathologist listed as making the final interpretation certifies that she/he has personally reviewed this case. MILD LYMPHOCYTOSIS NOTED. LYMPHOCYTES ARE SMALL IN SIZE. NO EVIDENCE OF A LYMPHOPROLIFERATIVE DISORDER BY FLOW CYTOMETRY. NO GENETIC STUDIES ORDERED. Performed By: #### F OLA2 #### [address] [address] FLOW CYTOMETRY WITH PATH REV IEW AND MOL/FISH REFLEX,BLOODon 05-30-2022 FLOW TEST ORDERED LOW GRADE PANEL Normal [facility] Comment on above: Performed By: #### F OLA2 #### [address] [address] SURFACE MARKERS LOW GRADE PA ALIREZALon 05-30-2022 CD19 16 % of Lymph Normal [facility] Comment on above: Result Comment: Poly clonal [place]/Lambda= 6:4 Performed By: #### L GP #### [facility] [address] [place] [address] DIAGNOSIS SEE BELOW Normal [facility] Comment on above: Result Comment: No i mmunophenotypic evidence of a lymphoproliferative disorder. Performed By: #### L GP #### [facility] [address] [place] [address] CD4 42 % of Lymph Normal [facility] Comment on above: Performed By: #### L GP #### [facility] [address] [place] [address] CD8 28 % of Lymph Normal [facility] Comment on above: Performed By: #### L GP #### [facility] [address] [place] [address] CELL COUNT 10.6 x10E9/L Normal [facility] Comment on above: Performed By: #### L GP #### [facility] [address] [place] [address] Lymphocytes/100 WBC (Bld) 58 % Normal [facility] Comment on above: Performed By: #### L GP #### [facility] [address] [place] [address] NK 14 % of Lymph Normal [facility] Comment on above: Performed By: #### L GP #### [facility] [address] [place] [address] NUMBER OF CELLS COLLECTED 100,000 per tube Normal [facility] Comment on above: Performed By: #### L GP #### [facility] [address] [place] [address] SPECIMEN SITE Peripheral Blood Normal [facility] Comment on above: Performed By: #### L GP #### [facility] [address] [place] [address] SPECIMEN VIABILITY Acceptable Normal [facility] Comment on above: Result Comment: Flow cytometry results should be interpreted in the context of morphology. Flow cytometry findings may be unreliable due to sampling issues, differential loss or recovery of cell populations ex vivo, or low viability. Performed By: #### L GP #### [facility] [address] [place] [id number] SURFACE MARKERS LOW GRADE PA NELon 05-29-2022 METHOD SEE BELOW Normal [facility] Comment on above: Result Comment: This test is a multicolor, whole blood lysis assay. It was developed and its performance characteristics determined by the Department of Pathology, [facility], and has not been cleared or approved by the U.S. Food and Drug Administration. The laboratory is regulated under CLIA as qualified to perform high complexity testing. This test is used for clinical purposes. It should not be regarded as investigational or for research. Immunophenotypic analysis was performed using the following antibodies: CD45, CD71, CD13, CD200, CD14, HLADR, CD2, CD7, CD4, CD5, CD3, CD16, CD56, CD8, CD10, CD20, CD38, CD19, CD43, CD23, CD1c, CD25, CD180, CD11c, CD79b, [place], Lambda, IgD. Performed By: #### L GP #### [facility] [address] [place] [address] NOTE SEE BELOW Normal [facility] Comment on above: Performed By: #### L GP #### [facility] [address] [place] [address] CBC AND DIFFERENTIALon 05-28 Basophils (Bld) [#/Vol] 0.07 10*3/uL Normal 0.00 - 0.10 [facility] Comment on above: Performed By: #### C BCDF #### [address] [address] Basophils/100 WBC (Bld) 0.7 % Normal 0.0 - 2.0 [facility] Comment on above: Performed By: #### C BCDF #### [address] [address] Eosinophils (Bld) [#/Vol] 0.21 10*3/uL Normal 0.00 - 0.70 [facility] Comment on above: Performed By: #### C BCDF #### [address] [address] Eosinophils/100 WBC (Bld) 2.0 % Normal 0.0 - 6.0 [facility] Comment on above: Performed By: #### C BCDF #### [address] [address] Lymphocytes (Bld) [#/Vol] 6.32 10*3/uL High 1.20 - 4.80 [facility] Comment on above: Performed By: #### C BCDF #### [address] [address] Lymphocytes/100 WBC (Bld) 59.4 % Normal 13.0 - 44.0 [facility] Comment on above: Performed By: #### C BCDF #### [address] [address] Monocytes (Bld) [#/Vol] 0.79 10*3/uL Normal 0.10 - 1.00 [facility] Comment on above: Performed By: #### C BCDF #### [address] [address] Monocytes/100 WBC (Bld) 7.4 % Normal 2.0 - 10.0 [facility] Comment on above: Performed By: #### C BCDF #### [address] [address] Neutrophils (Bld) [#/Vol] 3.24 10*3/uL Normal 1.20 - 7.70 [facility] Comment on above: Result Comment: Perc ent differential counts (%) should be interpreted in the context of the absolute cell counts (cells/L). Performed By: #### C BCDF #### [address] [address] Neutrophils/100 WBC (Bld) 30.4 % Normal 40.0 - 80.0 [facility] Comment on above: Performed By: #### C BCDF #### [address] [address] % AUTOMATED IMMATURE GRAN 0.2 % Normal 0.0 - 0.9 [facility] Comment on above: Result Comment: Gisele ture Granulocyte Count (IG) includes promyelocytes, myelocytes and metamyelocytes but does not include bands. Percent differential counts (%) should be interpreted in the context of the absolute cell counts (cells/L). Performed By: #### C BCDF #### [address] [address] Erythrocyte distribution width (RBC) [Ratio] 13.5 % Normal 11.5 - 14.5 [facility] Comment on above: Performed By: #### C BCDF #### [address] [address] Hematocrit (Bld) [Volume fraction] 47.8 % High 36.0 - 46.0 [facility] Comment on above: Performed By: #### C BCDF #### [address] [address] Hemoglobin (Bld) [Mass/Vol] 15.1 g/dL Normal 12.0 - 16.0 [facility] Comment on above: Performed By: #### C BCDF #### [place] [address] MCHC (RBC) [Mass/Vol] 33.0 g/dL Normal 32.0 - 36.0 [facility] Comment on above: Performed By: #### C BCDF #### [place] [id number] MCV (RBC) [Entitic vol] 94 fL Normal 80 - 100 [facility] Comment on above: Performed By: #### C BCDF #### [place] [address] Platelets (Bld) [#/Vol] 412 10*3/uL Normal 150 - 450 [facility] Comment on above: Performed By: #### C BCDF #### [place] [address] RBC 4.90 x10E12/L Normal 4.00 - 5.20 [facility] Comment on above: Performed By: #### C BCDF #### [place] [address] WBC (Bld) [#/Vol] 10.6 10*3/uL Normal 4.4 - 11.3 [facility] Comment on above: Performed By: #### C BCDF #### [place] [address] Lab Specimen Source Blood Normal [facility] Comment on above: Performed By: #### C BCDF #### [place] [address] FLOW CYTOMETRY WITH PATH REV IEW AND MOL/FISH REFLEX,BLOODon 05-28-2022 SOURCE WHOLE BLD-EDTA Normal [facility] Comment on above: Performed By: #### F OLA2 #### [place] [address] Lab Specimen Source Normal [facility] Comment on above: Performed By: #### F OLA2 #### [place] [address] Clinic Note - Heme Onc-Follo w Up Visiton 05-24-2022 Clinic Note - Heme Onc-Follow Up Visit Patient Visit Information: Visit Type: Follow Up Visit, Telephone Visit: A telephone visit (audio only) between the patient (at the originating site) and the provider (at the distant site) was utilized to provide this telehealth service. Verbal Consent for Encounter: Verbal consent was requested and obtained from patient, or from parent/guardian if minor, on this date for a telehealth visit. History of Present Illness: ID Statement: DANITZA CLINE is a 66 year old Female Chief Complaint: Evaluation for NHL hx Interval History: Reason for visit: hx of NHL Telehealth Visit due to COVID19 national emergency and related precautions HPI 66 year old woman with hx of nephrolithiasis, urinary incontinence, presenting for evaluation of NHL. 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 she is very limited because of the resulting pain she visited with many doctors and no relief she is not on pain medications, she has not visited any doctors since 2018 she is feeling more tired recently and has lost more weight she does not know exactly how much less appetite no fever no SOB, coughing or chest pain no chest pain, no abd pain no vomiting has night sweats interval history- 05/24/22- Telehealth Visit due to COVID19 national emergency and related precautions she is still feeling similarly still have the pain not eating very well, denies vomiting thinks she lost some more weight but not sure no fever no SOB no other new complaints PAST MEDICAL HISTORY: nephrolithiasis, urinary incontinence, possible fibromyalgia complicated cyst in kidney she had a fall in 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 REVIEW OF SYSTEMS: Pertinent finding as per the history above. There are no additional specific symptoms pertaining to eyes, ENT, hematologic, lymphatic, neurological, psychiatric, cardiac, pulmonary, GI, , endocrine, rheumatic, dermatological, or musculoskeletal systems. All other systems have been reviewed and generally negative and noncontributory. PHYSICAL EXAMINATION: GENERAL: Age-appropriate, in no acute discomfort. HEENT: Normocephalic and atraumatic. NECK: Supple CHEST: breathing non labored EXTREMITIES: No cyanosis, clubbing, or edema. NEUROLOGICAL: Alert, awake, and oriented LAB DATA: Latest labs were reviewed in the EMR and from the outside sources. Allergies and Intolerances: Allergies: Demerol HCl: Drug, Unknown, Active Dilaudid: Drug, Unknown, Active Neurontin: Drug, Unknown, Active Outpatient Medication Profile: * No Current Medications as of 09-May-2022 10:47 documented in Structured Notes Medical History: Fatigue: ICD-10: R53.83, Status: Active Neuralgia: ICD-10: M79.2, Status: Active Non-Hodgkin's lymphoma: ICD-10: C85.90, Status: Active Surg History: H/O lithotripsy: ICD-10: Z98.890, Status: Active History of foot surgery: ICD-10: Z98.890, Status: Active History of dilation and curettage: ICD-10: Z98.890, Status: Active History of laparoscopic cholecystectomy: ICD-10: Z90.49, Status: Active History of splenectomy: ICD-10: Z90.81, Status: Active History of lithotripsy: ICD-10: Z98.890, Status: Active Social History: Social Substance History: Smoking Statuscurrent every day smoker (1) Is the patient interested in referral for cessation counselingno Tobacco Usedaily Alcohol Useoccasionally Vitals and Measurements: Measurements: HT(cm): 162.5 WT(kg): NA BSA: NA BMI: NA Lab Results: Results CBC date/time WBC HGB HCT PLT Neut 13-May-2022 06:00 9.5 15.2 46.2(H) 398 N/A BMP date/time NA K CL CO2 BUN CREAT 13-May-2022 06:00 138 3.7 106 N/A 16 0.85 LDH date/time LDH 13-May-2022 06:00 159 I have reviewed these laboratory results: RBC Morphology 13-May-2022 07:00:00 ResultValue Red Blood Cell Morphology NORMAL Manual Differential Panel 13-May-2022 07:00:00 ResultValue % Seg Neutrophil 35.0 % Band Neutrophil 0.0 % Lymphocyte 61.0 % Monocyte 0.0 % Eosinophil 3.0 % Basophil 0.0 % Lymph-Atypical 1.0 Absolute Neutrophil Count ( (more content not included)... Normal [facility] Note - Intakeon 05-24 Clinic Note - Intake Patient Visit Information: Visit TypeFollow Up Visit, Telephone Visit: A telephone visit (audio only) between the patient (at the originating site) and the provider (at the distant site) was utilized to provide this telehealth service., non hodgkins lymphoma Source of Informationpatient Admission Information: Admission Since Last VisitNo Vital Signs: Height in cm162.5 centimeter(s) Pain Screening: Patient States Painyes Current Pain Score (0-10)8 Pain Description/Locationbottom Pain Scale UsedNumeric (0-10) Allergies: Demerol HCl: Drug, Unknown, Active Dilaudid: Drug, Unknown, Active Neurontin: Drug, Unknown, Active Outpatient Medication Profile: * No Current Medications as of 09-May-2022 10:47 documented in Structured Notes Notification: NotificationsAnnual Screens Due Dates ___ Advanced Directives: May 09, 2023 Family Violence: May 09, 2023 Depression (Due every 6 months for ONC only; all others use Annual date): Nov 05, 2022 Substance Use - Alcohol: May 09, 2023 Substance Use - Drugs: May 09, 2023 Nutrition: Due Now Learning: Due Now Travel History: COVID-19 Screening Completedno exposure or symptoms Travel or ExposureNO travel to International locations in the past 30 days Falls: Have you fallen in the last 6 monthsno Do you have a fear of fallingno Do you feel you need assistanceno Is the patient using an assistive deviceno Not a falls riskimplement environmental risk factors interventions Electronic Signatures: Lucille Real (MAGALY MOSLEY) (Signed 24-May-2022 10:54) Authored: Patient Visit Information, Vital Signs, Allergies, Notification, Travel History, Falls Last Updated: 24-May-2022 10:54 by Lucille Real (MAGALY MOSLEY) [facility] CT CHEST ABDOMEN PELVIS W IV CONTRASTon 05-17-2022 CT CHEST ABDOMEN PELVIS W IV CONTRAST Patient Name: DANITZA CLINE STUDY: CT CHEST ABDOMEN PELVIS W IV CONTRAST; 05/17/2022 11:38 am INDICATION: HODGKINS YEARS AGO- RESTAGING C85.90: Non-Hodgkin's lymphoma. COMPARISON: CT abdomen and pelvis 06/20/2021 ACCESSION NUMBER(S): [id number] ORDERING CLINICIAN: JONNIE WHITEHEAD TECHNIQUE: CT of the chest, abdomen, and pelvis was performed. Contiguous axial images were obtained at 3 mm slice thickness through the chest, abdomen and pelvis. Coronal and sagittal reconstructions at 3 mm slice thickness were performed. 90 ml of contrast Omnipaque 350 were administered intravenously without immediate complication. Positive oral contrast was also given. FINDINGS: CHEST: LUNG/PLEURA/LARGE AIRWAYS: Central airways are patent without endobronchial lesions. Mild upper lobe predominant centrilobular emphysema. No suspicious pulmonary nodule. No pneumothorax. No pleural effusion. No focal consolidation. Mild bibasilar atelectasis. VESSELS: Aorta and pulmonary arteries are normal caliber. Mild atherosclerotic changes are noted of the aorta and branching vessels. Moderate coronary artery calcifications are present. HEART: The heart is normal in size. There is no pericardial effusion. MEDIASTINUM AND ROSA: No mediastinal, hilar or axillary lymphadenopathy is present. The esophagus is nondilated and appears normal in entire length. CHEST WALL AND LOWER NECK: The soft tissues of the chest wall demonstrate no gross abnormality. The visualized thyroid gland appears within normal limits. ABDOMEN: LIVER: Diffuse hepatic steatosis. No focal hepatic lesion. BILE DUCTS: The intrahepatic and extrahepatic ducts are not dilated. GALLBLADDER: The gallbladder is surgically absent. PANCREAS: The pancreas appears unremarkable without evidence of ductal dilatation or masses. SPLEEN: The spleen is surgically absent. ADRENAL GLANDS: Bilateral adrenal glands appear normal. KIDNEYS AND URETERS: The kidneys are normal in size and enhance symmetrically. Subcentimeter low-attenuation lesions, too small to characterize likely benign. 7 mm left inferior pole nonobstructing calculus. No hydronephrosis. PELVIS: BLADDER: The urinary bladder appears normal without abnormal wall thickening. REPRODUCTIVE ORGANS: No pelvic masses. BOWEL: The stomach is unremarkable. The small and large bowel are normal in caliber and demonstrate no wall thickening. The appendix appears normal. VESSELS: There is no aneurysmal dilatation of the abdominal aorta. The IVC appears normal. Mild atherosclerotic calcification abdominal aorta and iliac arteries. PERITONEUM/RETROPERITONEUM/ LYMPH NODES: There is no free or loculated fluid collection, no free intraperitoneal air. The retroperitoneum appears normal. No enlarged mesenteric lymph nodes. BONE AND SOFT TISSUE: No suspicious osseous lesions are identified. Degenerative discogenic disease is noted in the lower thoracic and lumbar spine. The abdominal wall soft tissues appear normal. IMPRESSION: CHEST: 1. No acute findings in the thorax. 2. No suspicious pulmonary nodules. 3. Upper lobe predominant mild emphysema. ABDOMEN-PELVIS: 1. No suspicious abdominopelvic adenopathy. 2. Hepatic steatosis without focal hepatic lesion. 3. 7 mm left inferior pole nonobstructing calculus. Electronically signed by: KELLY SMITH MD [facility] NR CT NECK WITH CONTRASTon 0 05-17-[address] NECK WITH CONTRAST Patient Name: DANITZA CLINE STUDY: CT NECK WITH CONTRAST; 05/17/2022 11:38 am INDICATION: HODGKINS YEARS AGO- RESTAGING C85.90: Non-Hodgkin's lymphoma. COMPARISON: None. ACCESSION NUMBER(S): [id number] ORDERING CLINICIAN: JONNIE WHITEHEAD TECHNIQUE: Following intravenous injection axial CT was performed from the skullbase to the thoracic inlet and multiplanar reconstructions were made. FINDINGS: * The visualized paranasal sinuses nasopharynx and oropharynx are unremarkable. *The major salivary glands are normal. *There is no measurable cervical lymphadenopathy. *The larynx and related cartilages are normal. *The thyroid gland is normal. *Surgical clips at the right lower neck and supraclavicular fossa. The thoracic inlet is otherwise normal. IMPRESSION: * There is no evidence of mass, cyst or adenopathy in the neck. THIS EXAMIN[place] [facility] [place] signed by: RUBEN DIEZ MD [facility] MANUAL DIFFERENTIALon 2022 % BAND NEUTROPHIL 0.0 % Normal 0.0 - 5.0 [facility] Comment on above: Performed By: #### F OLA2 #### [address] [address] % BASOPHIL 0.0 % Normal 0.0 - 2.0 [facility] Comment on above: Performed By: #### F OLA2 #### [address] [address] % EOSINOPHIL 3.0 % Normal 0.0 - 6.0 [facility] Comment on above: Performed By: #### F OLA2 #### [address] [address] % LYMPH-ATYPICAL 1.0 % Normal 0.0 - 2.0 [facility] Comment on above: Performed By: #### F OLA2 #### [address] [address] % LYMPHOCYTE 61.0 % Normal 13.0 - 44.0 [facility] Comment on above: Performed By: #### F OLA2 #### [address] [address] % MONOCYTE 0.0 % Normal 2.0 - 10.0 [facility] Comment on above: Performed By: #### F OLA2 #### [address] [address] % SEG NEUTROPHIL 35.0 % Normal 40.0 - 80.0 [facility] Comment on above: Result Comment: Perc ent differential counts (%) should be interpreted in the context of the absolute cell counts (cells/L). Performed By: #### F OLA2 #### [address] [address] ANC 3.33 x10E9/L Normal 1.20 - 7.70 [facility] Comment on above: Result Comment: This is a corrected result. Previous value was 35.00, verified at 05/14/2022 11:31 Performed By: #### F OLA2 #### [address] [address] EOSINOPHIL 0.29 x10E9/L Normal 0.00 - 0.70 [facility] Comment on above: Result Comment: This is a corrected result. Previous value was 3.00, verified at 05/14/2022 11:25 Performed By: #### F OLA2 #### [place] [address] LYMPH-ATYPICAL 0.10 x10E9/L Normal 0.00 - 0.50 [facility] Comment on above: Result Comment: This is a corrected result. Previous value was 1.00, verified at 05/14/2022 11:25 Performed By: #### F OLA2 #### [place] [address] LYMPHOCYTE 5.80 x10E9/L High 1.20 - 4.80 [facility] Comment on above: Result Comment: This is a corrected result. Previous value was 61.00, verified at 05/14/2022 11:31 This is a corrected result. Previous value was 31.00, verified at 05/14/2022 11:25 Performed By: #### F OLA2 #### [place] [address] SEG NEUTROPHIL 3.33 x10E9/L Normal 1.20 - 7.00 [facility] Comment on above: Result Comment: This is a corrected result. Previous value was 35.00, verified at 05/14/2022 11:31 Performed By: #### F OLA2 #### [place] [address] BAND NEUTROPHIL 0.00 x10E9/L Normal 0.00 - 0.70 [facility] Comment on above: Result Comment: This is a corrected result. Previous value was 35.00, verified at 05/14/2022 11:25 Performed By: #### F OLA2 #### [place] [address] BASOPHIL 0.00 x10E9/L Normal 0.00 - 0.10 [facility] Comment on above: Performed By: #### F OLA2 #### [place] [address] MONOCYTE 0.00 x10E9/L Low 0.10 - 1.00 [facility] Comment on above: Performed By: #### F OLA2 #### [address] [address] RED CELL MORPHOLOGYon 2022 RBC morphology finding Nom (Bld) normal Normal [facility] Comment on above: Result Comment: This is a corrected result. Previous value was normal, verified at 05/14/2022 11:26 Performed By: #### M ORP2 #### [place] [id number] CBC AND DIFFERENTIALon 05-13 % AUTOMATED IMMATURE GRAN 0.2 % Normal 0.0 - 0.9 [facility] Comment on above: Result Comment: Gisele ture Granulocyte Count (IG) includes promyelocytes, myelocytes and metamyelocytes but does not include bands. Percent differential counts (%) should be interpreted in the context of the absolute cell counts (cells/L). Performed By: #### C BCDF #### [place] [id number] DIFFERENTIAL SEE MANUAL DIFF Normal [facility] Comment on above: Result Comment: This is a corrected result. Previous value was DNR, verified at 05/13/2022 07:22 Performed By: #### C BCDF #### [address] [address] Erythrocyte distribution width (RBC) [Ratio] 13.2 % Normal 11.5 - 14.5 [facility] Comment on above: Performed By: #### C BCDF #### [address] [address] Hematocrit (Bld) [Volume fraction] 46.2 % High 36.0 - 46.0 [facility] Comment on above: Performed By: #### C BCDF #### [address] [address] Hemoglobin (Bld) [Mass/Vol] 15.2 g/dL Normal 12.0 - 16.0 [facility] Comment on above: Performed By: #### C BCDF #### [address] [address] MCHC (RBC) [Mass/Vol] 32.9 g/dL Normal 32.0 - 36.0 [facility] Comment on above: Performed By: #### C BCDF #### [address] [address] MCV (RBC) [Entitic vol] 92 fL Normal 80 - 100 [facility] Comment on above: Performed By: #### C BCDF #### [address] [address] Platelets (Bld) [#/Vol] 398 10*3/uL Normal 150 - 450 [facility] Comment on above: Performed By: #### C BCDF #### [address] [address] RBC 5.02 x10E12/L Normal 4.00 - 5.20 [facility] Comment on above: Performed By: #### C BCDF #### [address] [address] WBC (Bld) [#/Vol] 9.5 10*3/uL Normal 4.4 - 11.3 [facility] Comment on above: Performed By: #### C BCDF #### [address] [address] COMPREHENSIVE PANELon 2022 Albumin [Mass/Vol] 4.4 g/dL Normal 3.4 - 5.0 [facility] Comment on above: Performed By: #### C MP #### [address] [address] ALP [Catalytic activity/Vol] 71 U/L Normal 33 - 136 [facility] Comment on above: Performed By: #### C MP #### [address] [address] ALT [Catalytic activity/Vol] 11 U/L Normal 7 - 45 [facility] Comment on above: Result Comment: Isela ents treated with Sulfasalazine may generate falsely decreased results for ALT. Performed By: #### C MP #### [address] [address] Anion gap [Moles/Vol] 14 mmol/L Normal 10 - 20 [facility] Comment on above: Performed By: #### C MP #### [address] [address] AST [Catalytic activity/Vol] 15 U/L Normal 9 - 39 [facility] Comment on above: Performed By: #### C MP #### [address] [address] Bilirubin [Mass/Vol] 0.5 mg/dL Normal 0.0 - 1.2 [facility] Comment on above: Performed By: #### C MP #### [address] [address] Calcium [Mass/Vol] 9.5 mg/dL Normal 8.6 - 10.3 [facility] Comment on above: Performed By: #### C MP #### [address] [address] Chloride [Moles/Vol] 106 mmol/L Normal 98 - 107 [facility] Comment on above: Performed By: #### C MP #### [address] [address] Creatinine [Mass/Vol] 0.85 mg/dL Normal 0.50 - 1.05 [facility] Comment on above: Performed By: #### C MP #### [address] [address] GFR/1.73 sq M.predicted among non-blacks MDRD (S/P/Bld) [Vol rate/Area] 76 mL/min/{1.73_m2} Normal >90 [facility] Comment on above: Result Comment: CALC ULATIONS OF ESTIMATED GFR ARE PERFORMED USING THE 2020 CKD-EPI STUDY REFIT EQUATION WITHOUT THE RACE VARIABLE FOR THE IDMS-TRACEABLE CREATININE METHODS. https://jasn.asnjournals.org/content//ASN.341009538 8 Performed By: #### C MP #### [address] [address] Glucose [Mass/Vol] 137 mg/dL High 74 - 99 [facility] Comment on above: Performed By: #### C MP #### [address] [address] HCO3 (Bld) [Moles/Vol] 22 mmol/L Normal 21 - 32 [facility] Comment on above: Performed By: #### C MP #### [address] [address] Potassium [Moles/Vol] 3.7 mmol/L Normal 3.5 - 5.3 [facility] Comment on above: Performed By: #### C MP #### [address] [address] Protein [Mass/Vol] 7.5 g/dL Normal 6.4 - 8.2 [facility] Comment on above: Performed By: #### C MP #### [address] [address] Sodium [Moles/Vol] 138 mmol/L Normal 136 - 145 [facility] Comment on above: Performed By: #### C MP #### [address] [address] Urea nitrogen [Mass/Vol] 16 mg/dL Normal 6 - 23 [facility] Comment on above: Performed By: #### C MP #### [address] [address] FERRITINon 05-13-2022 FERRITIN 142 ug/L Normal 8 - 150 [facility] Comment on above: Performed By: #### F ERRI #### [address] [address] FOLATE, SERUMon 05-13-2022 Folate [Mass/Vol] ng/mL Normal >5.0 [facility] Comment on above: Result Comment: Low <3.4 Borderline 3.4-5.0 Normal >5.0 . Patients receiving more than 5 mg/day of biotin may have interference in test results. A sample should be taken no sooner than eight hours after previous dose. Contact the testing laboratory for additional information. Performed By: #### F OLA2 #### [address] [address] IRON + TIBCon 05-13-2022 % SATURATION 22 % Low 25 - 45 [facility] Comment on above: Performed By: #### F OLA2 #### [address] [address] Iron [Mass/Vol] 85 ug/dL Normal 35 - 150 [facility] Comment on above: Performed By: #### F OLA2 #### [address] [address] TIBC 383 ug/dL Normal 240 - 445 [facility] Comment on above: Performed By: #### F OLA2 #### [address] [address] LDHon 05-13-2022 LDH 159 U/L Normal 84 - 246 [facility] Comment on above: Performed By: #### L DH #### [address] [address] TSH WITH REFLEX TO FREE T4 I F ABNORMALon 05-13-2022 TSH Qn 2.50 m[IU]/L Normal 0.44 - 3.98 [facility] Comment on above: Result Comment: TSH testing is performed using different testing methodology at [facility] than at [facility]. Direct result comparisons should only be made within the same method. Performed By: #### T HYDS #### [address] [address] VITAMIN B12on 05-13-2022 Cobalamin (Vitamin B12) [Mass/Vol] 312 pg/mL Normal 211 - 911 [facility] Comment on above: Performed By: #### V TB12 #### [address] [address] Clinic Note - Heme Onc-[place] 05-09-2022 Clinic Note - Heme Onc-New Visit Patient Visit Information: Visit Type: New Visit, Virtual Visit: An interactive audio and video telecommunication system which permits real time communications between the patient (at the originating site) and provider (at the distant site) was utilized to provide this telehealth service. Verbal Consent for Encounter: Verbal consent was requested and obtained from patient, or from parent/guardian if minor, on this date for a telehealth visit. History of Present Illness: ID Statement: DANITZA CLINE is a 66 year old Female Chief Complaint: Evaluation for NHL hx Interval History: Reason for visit: hx of NHL Telehealth Visit due to COVID19 national emergency and related precautions HPI 66 year old woman with hx of nephrolithiasis, urinary incontinence, presenting for evaluation of NHL. 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 she is very limited because of the resulting pain she visited with many doctors and no relief she is not on pain medications, she has not visited any doctors since 2018 she is feeling more tired recently and has lost more weight she does not know exactly how much less appetite no fever no SOB, coughing or chest pain no chest pain, no abd pain no vomiting has night sweats PAST MEDICAL HISTORY: nephrolithiasis, urinary incontinence, possible fibromyalgia complicated cyst in kidney she had a fall in 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 REVIEW OF SYSTEMS: Pertinent finding as per the history above. There are no additional specific symptoms pertaining to eyes, ENT, hematologic, lymphatic, neurological, psychiatric, cardiac, pulmonary, GI, , endocrine, rheumatic, dermatological, or musculoskeletal systems. All other systems have been reviewed and generally negative and noncontributory. PHYSICAL EXAMINATION: GENERAL: Age-appropriate, in no acute discomfort. HEENT: Normocephalic and atraumatic. NECK: Supple CHEST: breathing non labored EXTREMITIES: No cyanosis, clubbing, or edema. NEUROLOGICAL: Alert, awake, and oriented LAB DATA: Latest labs were reviewed in the EMR and from the outside sources. Allergies and Intolerances: Allergies: Demerol HCl: Drug, Unknown, Active Dilaudid: Drug, Unknown, Active Neurontin: Drug, Unknown, Active Outpatient Medication Profile: * No Current Medications as of 09-May-2022 10:47 documented in Structured Notes Medical History: Neuralgia: ICD-10: M79.2, Status: Active Non-Hodgkin's lymphoma: ICD-10: C85.90, Status: Active Surg History: H/O lithotripsy: ICD-10: Z98.890, Status: Active History of foot surgery: ICD-10: Z98.890, Status: Active History of dilation and curettage: ICD-10: Z98.890, Status: Active History of laparoscopic cholecystectomy: ICD-10: Z90.49, Status: Active History of splenectomy: ICD-10: Z90.81, Status: Active History of lithotripsy: ICD-10: Z98.890, Status: Active Social History: Social Substance History: Smoking Statuscurrent every day smoker Is the patient interested in referral for cessation counselingno Tobacco Usedaily Alcohol Useoccasionally Vitals and Measurements: Measurements: HT(cm): 162.5 WT(kg): NA BSA: NA BMI: NA Lab Results: Results CBC date/time WBC HGB HCT PLT Neut 21-Jun-2019 07:10 11.5(H) 15.3 45.7 425 N/A BMP date/time NA K CL CO2 BUN CREAT 21-Jun-2019 07:10 136 4.0 105 N/A 15 0.94 Assessment and Plan: Assessment and Plan: Assessment: 1. History of NHL we were not able to retrieve the records from her prior treatment at [facility] likely DLBCL that was treated with CHOP x 8 cycles followed by Rituxan x 4 cycles per patient she was surveilled for 5 years without evidence of recurrence patient called and wanted follow up due to concerns of weight loss and fatigue we will check CT scans of neck/C/A/P to rule out recurrence check labs 2. Fatigue check cbc obtain TSH, ferritin and vitamin 12 levels RTC after scans Time Based Billing: Prep Time on Date of Patient [id number] minute(s) Time Directly with Patient/Family/Hvfyuyhgg18 (more content not included)... [facility] Note - Intakeon 05-09 Clinic Note - Intake Patient Visit Information: Visit TypeNew Visit, non hodgkins lymphoma Source of Informationpatient Vital Signs: Height in cm162.5 centimeter(s) Height Methodstated Pain Screening: Patient States Painno (0) Allergies: Demerol HCl: Drug, Unknown, Active Dilaudid: Drug, Unknown, Active Neurontin: Drug, Unknown, Active Outpatient Medication Profile: * No Current Medications as of 09-May-2022 10:47 documented in Structured Notes Notification: NotificationsAll annual screens currently due. Travel History: COVID-19 Screening Completedno exposure or symptoms Travel or ExposureNO travel to International locations in the past 30 days Falls: Have you fallen in the last 6 monthsno Do you have a fear of fallingno Do you feel you need assistanceno Is the patient using an assistive deviceno Not a falls riskimplement environmental risk factors interventions Spiritual/Procedural: Spiritual/cultural/religiou s practices important for us to knowno Adv Dir: [facility] Declaration of Mental Health Treatmentno Living Will Formsasked to bring forms next visit Healthcare POA Formsasked to bring forms next visit Mental Health Formsdeclines more information Violence: Are you or have you been threatened or abused physically,emotionally or sexually abused by anyoneno Do you feel UNSAFE going back to the place you are livingno Depression: Past 2 wks: [place] down, depressed or hopelessno Past 2 wks: [place] little interest/pleasure doing thingsno Any Thoughts of Harming Othersno Substance: How many times in the past year have you had 4 or more drinks within 24 hours0 How many times in past year have you used recreational or prescription drugs for non-medical reasons0 Electronic Signatures: Lucille Real (MAGALY MOSLEY) (Signed 09-May-2022 10:48) Authored: Patient Visit Information, Vital Signs, Allergies, Notification, Travel History, Falls, Spiritual/Procedural, Adv Dir, Violence, Depression, Substance Last Updated: 09-May-2022 10:48 by Lucille Real (MAGALY MOSLEY) [facility] Radiologyon 08-16-2021 US Kidney - bilateral Normal [facility] Work Phone: US RENAL BILATon 08-16-2021 US RENAL BILAT Patient Name: DANITZA CLINE STUDY: US RENAL BILAT; 08/16/2021 8:18 am INDICATION: kidney stone. COMPARISON: 06/21/2019 ACCESSION NUMBER(S): [id number] ORDERING CLINICIAN: ELISE MARCELINO TECHNIQUE: Multiple images of the kidneys were obtained . FINDINGS: RIGHT KIDNEY: The right kidney measures 8.8 cm in length. The renal cortical echogenicity and thickness are within normal limits. No hydronephrosis is present. There is an echogenic 4 mm focus in the lower renal sinus of the right kidney, likely nonobstructing stone. Prominent column of Joel noted. No focal lesion is evident. The liver is noted to be increased in echogenicity. LEFT KIDNEY: The left kidney measures 8.6 cm in length. The renal cortical echogenicity and thickness are within normal limits. No hydronephrosis is present. A 4 mm echogenic focus is noted in the left mid to lower renal sinus, likely nonobstructing stone. There is an anechoic cyst in the upper pole measuring 1 cm. There is no definite imaging correlate on this ultrasound for the 2.4 cm heterogeneous mildly dense mass in the left lower kidney seen on the prior CT, however it is possibly corresponding to the hypoechoic 2.7 cm focus seen on 1 of the axial images (see image 29), not adequately evaluated. BLADDER: The bladder is low in volume, limiting assessment. IMPRESSION: Bilateral nonobstructing nephrolithiasis. No hydronephrosis. Hypoechoic lesion of the left kidney measuring up to 2.7 cm, probably corresponding to a mildly hyperdense and heterogeneous left lower renal mass seen on the prior CT, which is indeterminate. Suggest renal protocol MRI for further evaluation. 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 : kidney stone Patient Discussion/Summary KUB reviewed. Will observe Stone prevention discussed. Diet reviewed. Discussed fluid intake Treatment options for LUTS reviewed Pelvic floor exercises discussed. Pros/cons of PT discussed.. Questions answered Lifestyle change to help prevent UTIs discussed. Encouraged fluid intake. F/U 6 months with KUB Chief Complaint Post op f/u History of Present IllnessPatient is here for post op f/u..S/P right extracorporeal shock wave lithotripsy 08/22/20... Patient last year was supposed to have Right ESWL but had to hold off due to other medical problems. Denies flank pain. Denies N/V and F/C. LUTs are chronic and mild.. Denies frequency and urgency...Denies hematuria or dysuria....Nocturia x 1 depending on fluid intake..Caffeine makes LUTs worse. No medication for LUT'S. No recent UTI sx. Hx of benign renal cyst. Review of Systems Constitutional: No fever, No chills Eye: glasses Respiratory: No shortness of breath, No cough. Cardiovascular: No chest pain Gastrointestinal: No nausea Genitourinary: Negative except as documented in history of present illness. Hematology/Lymphatics: Patient denies being on blood thinners.. Endocrine: Negative. Immunologic: Not immunocompromised. Musculoskeletal: Joint pain Integumentary: Negative. Neurologic: Alert and oriented X4. Psychiatric: Negative. 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) Surgical History Problems History of Cholecystectomy History of Cystoscopy History of Lithotripsy History of Splenectomy Family History Mother Family history of arthritis (V17.7) (Z82.61) Family history of malignant neoplasm (V16.9) (Z80.9) Father Family history of malignant neoplasm (V16.9) (Z80.9) Brother Family history of arthritis (V17.7) (Z82.61) Social History Problems Current smoker (305.1) (F17.200) Allergies Medication Demerol TABS Allergy; Unknown; Recorded By: Fabby Oliva; 03/27/2019 8:41:22 AM Neurontin Allergy; Unknown; Recorded By: Fabby Oliva; 03/27/2019 8:41:22 AM Current Meds Medication NameInstruction Clotrimazole-Betamethasone 1-0.05 % External CreamAPPLY 1 INCH Twice daily Vitals Vital Signs Recorded: 10Jan2021 07:51AM Heart Kmlt490 Trvazqhv230 Yjwyjfuqk10 Height5 ft 3 in Bmuial849 lb BMI Msznleujkb78.05 kg/m2 BSA Calculated1.78 Tobacco Usea) Yes Patient encouraged to stop using tobacco productsYes Fall Screeninga) No falls within the last year Physical Exam A/O x 3 in No apparent distress Constitutional: General appearance normal Respiratory: Respiratory effort is normal Gastrointestinal:Abdomen is not tender Genitourinary: Kidneys: Not palpable Bilaterally Bladder: Not palpable or tender Results/Data Xray Abdomen AP [id number] 07:40AMPElise pugh II Test NameResultFlagReference Xray Abdomen AP View Please click on the link to view the study images Signatures Electronically signed by : Elise Marcelino II, MD; Jan 10 2021 7:58AM EST (Author) Normal [facility] Radiologyon 01-10-2021 XR Abdomen AP Please click on the link to view the study images Normal [facility] Work Phone: Tobacco Screening.on 021 Fall risk assessment a) No falls within the last year [facility] Work Phone: Tobacco use status CPHS a) Yes PP-Qsumeqb[facility] Work Phone: Tobacco Screening. 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 Patient has known renal stone on Right Pros/cons of ESWL discussed Stone prevention discussed. Diet reviewed. Discussed fluid intake Treatment options for LUTS reviewed Discussed timed voiding. Discussed fluid and caffeine intake Lifestyle change to help prevent UTIs discussed. Encouraged fluid intake. F/u R ESWL Chief Complaint Yearly f/u w/ KUB History of Present IllnessPatient is here for kidney stone. Patient had this last year and was supposed to have Right ESWL but had to hold off due to other medical problems. Denies flank pain. Denies N/V and F/C. LUTs are chronic and mild.. Denies frequency and urgency...Denies hematuria or dysuria....Nocturia x 1 depending on fluid intake..Caffeine makes LUTs worse. No medication for LUT'S. No recent UTI sx. Hx of benign renal cyst. Review of Systems Constitutional: no fever and no chills. Eyes: glasses. ENT: hearing loss. Cardiovascular: no chest pain. Respiratory: no shortness of breath and no cough. Gastrointestinal: no vomiting and no nausea. Genitourinary: as noted in HPI. Musculoskeletal: hip pain. Integumentary: negative. Neurological: A/O x4. Psychiatric: negative. Endocrine: negative. Hematologic/Lymphatic: negative. 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) Surgical History Problems History of Cholecystectomy History of Cystoscopy History of Lithotripsy History of Splenectomy Family History Mother Family history of arthritis (V17.7) (Z82.61) Family history of malignant neoplasm (V16.9) (Z80.9) Father Family history of malignant neoplasm (V16.9) (Z80.9) Brother Family history of arthritis (V17.7) (Z82.61) Social History Problems Current smoker (305.1) (F17.200) Allergies Medication Demerol TABS Allergy; Unknown; Recorded By: Fabby Oliva; 03/27/2019 8:41:22 AM Neurontin Allergy; Unknown; Recorded By: Fabby Oliva; 03/27/2019 8:41:22 AM Current Meds Medication NameInstruction No Reported Medications Vitals Vital Signs Recorded: 14Aug2020 07:42AM Heart Rate89 Avssjloq189 Czdpbddtz77 Height5 ft 3 in Nqonac867 lb 12 oz BMI Bchjlcyzkz75.66 BSA Calculated1.84 Tobacco Useb) No Fall Screeninga) No falls within the last year Physical Exam A/O x 3 in No apparent distress Constitutional: General appearance normal Respiratory: Respiratory effort is normal Gastrointestinal:Abdomen is not tender Genitourinary: Kidneys: Not palpable Bilaterally Bladder: Not palpable or tender Signatures Electronically signed by : Elise Marcelino II, MD; Aug 14 2020 7:51AM EST (Author) Normal [employer] Otheron 04-13-2019 Interpreted by: JOSEF GROVE04/15/19 08:12MRN: [id number] Name: DANITZA CLINE STUDY: RENAL BILAT 04/13/2019 8:20 am INDICATION:63 y/o F with hx of stones. COMPARISON:None. ORDERING CLINICIAN:ELISE MARCELINO TECHNIQUE:Multiple grayscale ultrasonographic images were obtained through thekidneys and urinary bladder. FINDINGS:RIGHT KIDNEY:The right kidney is somewhat small, measuring at up to 8.6 cm inlength. There is mild cortical thinning and increased corticalechogenicity within the kidney, which can be seen with medical renaldisease. There is no hydronephrosis or hydroureter identified. No definite focal renal mass is seen. A possible small nonobstructive calculus is seen in the lower pole ofthe right kidney, measuring up to 5 mm in diameter. LEFT KIDNEY:The left kidney is somewhat small, measuring at up to 9.1 cm inlength. There is mild cortical thinning and increased corticalechogenicity within the kidney, which can be seen with medical renaldisease. There is no hydronephrosis or hydroureter identified. A cyst is seen in the upper pole of the left kidney, measuring up to1 cm in diameter. No definite solid renal mass is seen. No discrete renal calculi are identified. BLADDER:The urinary bladder is grossly unremarkable in appearance. IMPRESSION:1. No hydronephrosis or hydroureter bilaterally.2. Increased cortical echogenicity within the kidneys bilaterally,which can be seen with medical renal disease.3. Possible nonobstructive calculus in the right kidney.4. Left renal cysts, as above.Electronically signed by: JOSEF GROVE 04/15/19 08:12 Normal [facility] Work Phone: XR Abdomen 1 Viewon 01-08-20 19 XR Abdomen 1 View Exam Date/Time: 01/06/2019 07:36 EDT Reason for Exam: RENAL STONES BILAT Report STUDY: XR Abdomen 1 View; 01/06/2019 7:36 am INDICATION: RENAL STONES BILAT. COMPARISON: 11/30/2018 ACCESSION NUMBER(S): [id number] ORDERING CLINICIAN: Elise Marcelino FINDINGS: 2 supine AP radiographs of the abdomen were obtained. Surgical clips are seen over the upper abdomen, similar to the prior study. No definite abnormal calcifications are seen over the kidneys or ureters bilaterally. There is a nonobstructive bowel gas pattern present. Free intraperitoneal air and air-fluid levels cannot be excluded without upright or decubitus images. IMPRESSION: No definite abnormal calcifications over the kidneys or ureters. FINAL REPORT Dictated: 01/07/2019 8:45 am Josef Grove MD Signed (Electronic Signature): 01/07/2019 8:45 am Signed by: Josef Grove MD Technologist: JULY Normal [facility] C Bloodon 12-03-2018 C Blood Final Report: No gracie wth at 5 Days [facility] Comment on above: Performed By: #### 1 [id number] #### [facility] [employer] [address] [place] [address] Auto Diffon 12-01-2018 Basophils (Bld) [#/Vol] 0.1 E3/mcL Normal 0.0-0.2 [facility] Comment on above: Order Comment: Order added by Discern Expert. Performed By: #### 1 [id number] #### [facility] [address] [place] [address] Basophils/100 WBC (Bld) 0.7 % Normal 0.0-2.0 [facility] Comment on above: Order Comment: Order added by Discern Expert. Performed By: #### 1 [id number] #### VIRAL [employer] [address] [place] [address] Eos Absolute 0.2 E3/mcL Normal 0.0-0.7 [facility] Comment on above: Order Comment: Order added by Discern Expert. Performed By: #### 1 [id number] #### VIRAL [employer] [address] [place] [address] Eosinophils/100 WBC (Bld) 1.8 % Normal 0.0-11.0 [facility] Comment on above: Order Comment: Order added by Discern Expert. Performed By: #### 1 [id number] #### VIRAL [employer] [address] [place] [address] Lymphocytes (Bld) [#/Vol] 3.0 E3/mcL Normal 1.2-3.4 [facility] Comment on above: Order Comment: Order added by Discern Expert. Performed By: #### 1 [id number] #### VIRAL [employer] [address] [place] [address] Lymphocytes/100 WBC (Bld) 31.9 % Normal 20.0-55.0 [facility] Comment on above: Order Comment: Order added by Discern Expert. Performed By: #### 1 [id number] #### VIRAL [employer] [address] [place] [address] Taney Absolute 0.6 E3/mcL Normal 0.0-0.7 [facility] Comment on above: Order Comment: Order added by Discern Expert. Performed By: #### 1 [id number] #### VIRAL [employer] [address] [place] [address] Monocytes/100 WBC (Bld) 6.5 % Normal 0.0-10.0 [facility] Comment on above: Order Comment: Order added by Discern Expert. Performed By: #### 1 [id number] #### VIRAL [employer] [address] [place] [address] Neutro Absolute 5.6 E3/mcL Normal 1.4-6.5 [facility] Comment on above: Order Comment: Order added by Discern Expert. Performed By: #### 1 [id number] #### VIRAL [address] [address] Neutro Auto 59.1 % Normal 37.0-75.0 [facility] Comment on above: Order Comment: Order added by Discern Expert. Performed By: #### 1 [id number] #### [facility]AL [address] [place] [address] CBC w/ Auto Diffon 9 Erythrocyte distribution width (RBC) [Ratio] 13.1 % Normal 11.5-14.5 [facility] Comment on above: Performed By: #### 1 [id number] #### VIRAL [address] [address] Hematocrit (Bld) [Volume fraction] 40.4 % Normal 36.0-48.0 [facility] Comment on above: Performed By: #### 1 [id number] #### VIRAL [address] [address] Hemoglobin (Bld) [Mass/Vol] 13.5 g/dL Normal 12.0-16.0 [facility] Comment on above: Performed By: #### 1 [id number] #### VIRAL [address] [address] MCH (RBC) [Entitic mass] 31.7 pg High 27.0-31.0 [facility] Comment on above: Performed By: #### 1 [id number] #### VIRAL [address] [address] MCHC (RBC) [Mass/Vol] 33.3 g/dL Normal 33.0-37.0 [facility] Comment on above: Performed By: #### 1 [id number] #### VIRAL [address] [address] MCV (RBC) [Entitic vol] 95.2 fL Normal 78.0-100.0 [facility] Comment on above: Performed By: #### 1 [id number] #### VIRAL [address] [address] Platelet mean volume (Bld) [Entitic vol] 8.5 fL Normal 7.4-11.0 [facility] Comment on above: Performed By: #### 1 [id number] #### VIRAL [employer] [address] [place] [address] Platelets (Bld) [#/Vol] 385 E3/mcL Normal 130-400 [facility] Comment on above: Performed By: #### 1 [id number] #### VIRAL [facility] [facility] [place] [address] RBC (Bld) [#/Vol] 4.25 E6/mcL Normal 3.90-5.40 [facility] Comment on above: Performed By: #### 1 [id number] #### VIRAL [employer] [address] [place] [address] WBC (Bld) [#/Vol] 9.5 E3/mcL Normal 3.6-11.0 [facility] Comment on above: Performed By: #### 1 [id number] #### VIRAL [employer] [address] [place] [address] C Urineon 11-30-2018 C Urine Final Report: Rare N ormal skin jc isolated Normal [facility] Comment on above: Performed By: #### 1 [id number] #### [facility] [address] [place] [address] XR Abdomen 1 Viewon 12-01-19 19 XR Abdomen 1 View Exam Date/Time: 11/30/2018 10:00 EDT Reason for Exam: Kidney stone Report STUDY: XR Abdomen 1 View; 11/30/2018 10:00 am INDICATION: Kidney stone. COMPARISON: None. ACCESSION NUMBER(S): [id number] ORDERING CLINICIAN: Elise Marcelino FINDINGS: Nonobstructive bowel gas pattern. Surgical clips are seen in the right and left upper abdominal regions. No radiopaque calculus is seen in the kidneys or ureters on either side. Visualized lungs are clear. Osseous structures demonstrate no acute bony changes. IMPRESSION: 1. No radiopaque urinary tract calculus. FINAL REPORT Dictated: 11/30/2018 10:45 am Jim Rivera MD Signed (Electronic Signature): 11/30/2018 10:45 am Signed by: Jim Rivera MD Technologist: JULY Dorsey [facility] .Manual Abson 11-28-2018 Segs Abs Man 12.9 10x3/ Normal 1.4-6.5 [facility] Comment on above: Order Comment: Order Added by Discern Expert. Performed By: #### 3 [id number] #### VIRAL RemHemo [address] [place] [address] Basophil Abs Man 0.0 10x3/ Normal 0.0-0.2 [facility] Comment on above: Order Comment: Order Added by Discern Expert. Performed By: #### 3 [id number] #### VIRAL RemHemo [address] [place] [address] Eos Abs Man 0.0 10x3/ Normal 0.0-0.5 [facility] Comment on above: Order Comment: Order Added by Discern Expert. Performed By: #### 3 [id number] #### VIRAL Rem[facility]emo [address] [place] [address] Lymph Abs Man 4.8 10x3/ High 1.2-3.4 [facility] Comment on above: Order Comment: Order Added by Discern Expert. Performed By: #### 3 [id number] #### VIRAL Rem[facility]emo [address] [place] [address] Taney Abs Man 1.3 10x3/ High 0.0-0.7 [facility] Comment on above: Order Comment: Order Added by Discern Expert. Performed By: #### 3 [id number] #### VIRAL Rem[facility] [address] [place] [address] BMPon 11-28-2018 Anion gap [Moles/Vol] 16 mmol/L Normal 10-20 [facility] Comment on above: Performed By: #### 2 [id number] #### VIRAL [employer] [address] [place] [address] Calcium [Mass/Vol] 9.4 mg/dL Normal 8.6-10.3 [facility] Comment on above: Performed By: #### 2 [id number] #### [facility] [employer] [address] [place] [address] Chloride [Moles/Vol] 106 mmol/L Normal 98-107 [facility] Comment on above: Performed By: #### 2 [id number] #### VIRAL [employer] [address] [place] [address] CO2 [Moles/Vol] 17.0 mmol/L Low 21.0-32.0 [facility] Comment on above: Performed By: #### 2 [id number] #### [facility]AL [employer] [address] [place] [address] Creatinine [Mass/Vol] 1.2 mg/dL High 0.5-1.1 [facility] Comment on above: Performed By: #### 2 [id number] #### V[facility]AL [employer] [address] [place] [address] Glucose [Mass/Vol] 114 mg/dL High 70-99 [facility] Comment on above: Performed By: #### 2 [id number] #### V[facility]AL [employer] [address] [place] [address] Potassium [Moles/Vol] 3.7 mmol/L Normal 3.5-5.3 [facility] Comment on above: Performed By: #### 2 [id number] #### V[facility]AL [employer] [address] [place] [address] Sodium [Moles/Vol] 136 mmol/L Normal 136-145 [facility] Comment on above: Performed By: #### 2 [id number] #### V[facility]AL [employer] [address] [place] [address] Urea nitrogen [Mass/Vol] 15 mg/dL Normal 6-23 [facility] Comment on above: Performed By: #### 2 [id number] #### [facility]AL [employer] [address] [place] [address] Urea nitrogen/Creatinin e [Mass ratio] 12.5 ratio Normal 5.4-30.0 [facility] Comment on above: Performed By: #### 2 [id number] #### [facility]AL [employer] [address] [place] [address] CBC w/ Auto Diffon 9 Erythrocyte distribution width (RBC) [Ratio] 12.8 % Normal 11.5-14.5 [facility] Comment on above: Performed By: #### 2 [id number] #### VIRAL Rem[facility]emo [address] [place] [address] Hematocrit (Bld) [Volume fraction] 42.3 % Normal 36.0-48.0 [facility] Comment on above: Performed By: #### 2 [id number] #### VIRAL RemHemo [address] [place] [address] Hemoglobin (Bld) [Mass/Vol] 14.3 g/dL Normal 12.0-16.0 [facility] Comment on above: Performed By: #### 2 656649 #### VIRAL Rem[facility]emo [address] [place] [address] MCH (RBC) [Entitic mass] 31.2 pg High 27.0-31.0 [facility] Comment on above: Performed By: #### 2 535690 #### VIRAL Rem[facility]emo [address] [place] [address] MCHC (RBC) [Mass/Vol] 33.7 g/dL Normal 33.0-37.0 [facility] Comment on above: Performed By: #### 2 [id number] #### VIRAL Rem[employer] [address] [place] [address] MCV (RBC) [Entitic vol] 92.4 fL Normal 78.0-100.0 [facility] Comment on above: Performed By: #### 2 [id number] #### VIRAL [facility] [address] [place] [address] Platelet mean volume (Bld) [Entitic vol] 8.4 fL Normal 7.4-11.0 [facility] Comment on above: Performed By: #### 2 [id number] #### V[facility]AL [facility] [address] [place] [address] Platelets (Bld) [#/Vol] 388 E3/mcL Normal 130-400 [facility] Comment on above: Performed By: #### 2 103862 #### VIRAL [employer] [address] [place] [address] RBC (Bld) [#/Vol] 4.57 E6/mcL Normal 3.90-5.40 [facility] Comment on above: Performed By: #### 2 [id number] #### V[facility]AL [employer] [address] [place] [address] WBC (Bld) [#/Vol] 19.0 E3/mcL High 3.6-11.0 [facility] Comment on above: Performed By: #### 2 [id number] #### VIRAL JohnsonHemo [address] [place] [address] CT Abdomen/Pelvis w/o Contra ston 11-28-2018 CT Abdomen/Pelvis w/o Contrast Exam Date/Time: 11/28/2018 13:58 EDT Reason for Exam: Abdominal Pain;Other (please specify) Report STUDY: CT Abdomen/Pelvis w/o Contrast; 11/28/2018 1:58 pm INDICATION: Other (please specify). COMPARISON: CT abdomen and pelvis 06/02/2015 ACCESSION NUMBER(S): [id number] ORDERING CLINICIAN: Tiffanie Moreno TECHNIQUE: Multiple axial images of the abdomen and pelvis were obtained with coronal and sagittal image reconstructions. No oral or IV contrast was administered. This limits evaluation for certain processes. FINDINGS: ABDOMEN: LOWER CHEST: Heart size is within normal limits. No pericardial or pleural effusion.No airspace consolidation in the lung bases. Minimal tree-in-bud nodular opacities in the lung bases suggesting infectious or inflammatory bronchiolitis. LIVER: No focal hepatic lesions. SPLEEN: Absent, status post splenectomy. PANCREAS: No focal pancreatic lesions. ADRENALS: No focal nodules. GALLBLADDER: Status post cholecystectomy. BILE DUCTS: No biliary ductal dilation KIDNEYS: There is mild right-sided hydronephrosis with proximal hydroureter and an obstructing 7 mm calculus in the proximal left ureter just beyond the ureteropelvic junction. There are additional small bilateral nonobstructing renal calculi, including a 3 mm calculus in the lower pole of the right kidney and a 4 mm calculus at the interpolar left kidney. There is a 1.9 cm left mid pole hemorrhagic cyst. The remainder of the ureters are normal in caliber. Unremarkable urinary bladder. PELVIS: REPRODUCTIVE ORGANS: No pelvic masses. URETERS AND BLADDER: See above. VESSELS: Aorta and IVC are normal in caliber. Scattered aortoiliac atherosclerotic calcification. BOWEL: Normal caliber stomach and duodenum, no large or small bowel obstruction. There is mild sigmoid diverticulosis, no diverticulitis. Normal appendix. LYMPH NODES: No lymphadenopathy by CT size criteria. Exam Date/Time: 11/28/2018 13:58 EDT Report RETROPERITONEUM: No mass or adenopathy. PERITONEUM: No ascites or free air, no fluid collection. ABDOMINAL WALL: Small fat containing umbilical hernia and fat containing midline ventral hernia, which is seen on image 47/154 with a 1.6 cm wide mouth. BONES: No body destructive lesion. IMPRESSION: Acute left-sided obstructive uropathy with a 7 mm calculus in the proximal left ureter just beyond the ureteropelvic junction, causing upstream hydronephrosis and hydroureter. Addition nonobstructing bilateral renal calculi as above. Areas of tree-in-bud nodular opacity in the lung bases suggest infectious or inflammatory bronchiolitis. FINAL REPORT Dictated: 11/28/2018 2:15 pm Libby Taylor MD Signed (Electronic Signature): 11/28/2018 2:15 pm Signed by: Libby Taylor MD Technologist: MM Normal [facility] Hep Func Panelon 11-28-2018 Albumin [Mass/Vol] 4.2 g/dL Normal 3.4-5.0 [facility] Comment on above: Performed By: #### 2 [id number] #### [facility]AL [employer] [address] [place] [address] Albumin/Globulin [Mass ratio] 1.4 {ratio} Normal 1.1-1.9 [facility] Comment on above: Performed By: #### 2 880826 #### VIRAL [employer] [facility] [place] [address] Alk Phos 70 Int._Unit/L Normal 33-136 [facility] Comment on above: Performed By: #### 2 [id number] #### VIRAL [employer] [address] [place] [address] ALT [Catalytic activity/Vol] 13 Int._Unit/L Normal 7-45 [facility] Comment on above: Performed By: #### 2 [id number] #### V[facility]AL [employer] [facility] [place] [address] AST [Catalytic activity/Vol] 15 Int._Unit/L Normal 9-39 [facility] Comment on above: Performed By: #### 2 [id number] #### [facility]AL [employer] [address] [place], [place] [address] Bili Direct 0.06 mg/dL Normal 0.00-0.30 [facility] Comment on above: Performed By: #### 2 [id number] #### [facility]AL [employer] [address] [place], [place] [address] Bili Indirect 0.37 mg/dL Normal [facility] Comment on above: Result Comment: No e stablished ranges available for the indirect bilirubin Performed By: #### 2 [id number] #### V[facility]AL [employer] [address] [place] [address] Bili Total 0.43 mg/dL Normal 0.00-1.20 [facility] Comment on above: Performed By: #### 2 [id number] #### [facility]AL [employer] [address] [place], [place] [address] Globulin (S) [Mass/Vol] 3.0 g/dL Normal 2.0-4.0 [facility] Comment on above: Performed By: #### 2 [id number] #### [facility]AL [employer] [address] [place] [address] Protein [Mass/Vol] 7.2 g/dL Normal 6.4-8.2 [facility] Comment on above: Performed By: #### 2 [id number] #### [facility]AL [employer] [address] [place], [place] [address] Lactic Acidon 11-28-2018 Lactate [Moles/Vol] 1.4 mmol/L Normal 0.4-2.0 [facility] Comment on above: Performed By: #### 1 [id number] #### [facility] [employer] [address] [place] [address] Lipase Levelon 11-28-2018 Lipase Lvl 14 Int._Unit/L Normal 9-82 [facility] Comment on above: Performed By: #### 2 [id number] #### [facility]AL [employer] [address] [place] [address] Manual Diffon 11-28-2018 Basophil Man 0 % Normal 0-1 [facility] Comment on above: Order Comment: Order Added by Discern Expert. Performed By: #### 2 [id number] #### VIRAL [employer] [address] [place] [address] Eosinophils/100 WBC (Bld) 0 % Normal 0-5 [facility] Comment on above: Order Comment: Order Added by Discern Expert. Performed By: #### 2 [id number] #### VIRAL [facility] [address] [place] [address] Lymphocytes/100 WBC (Bld) 25 % Normal 14-48 [facility] Comment on above: Order Comment: Order Added by Discern Expert. Performed By: #### 2 [id number] #### V[facility]AL [facility] [address] [place] [address] Monocyte Man 7 % Normal 1-11 [facility] Comment on above: Order Comment: Order Added by Discern Expert. Performed By: #### 2 [id number] #### VIRAL [employer] [address] [place] [id number] RBC morphology finding Nom (Bld) NORMAL Normal [facility] Comment on above: Order Comment: Order Added by Discern Expert. Performed By: #### 2 [id number] #### VIRAL [employer] [address] [place] [address] Segs Man 68 % Normal 37-75 [facility] Comment on above: Order Comment: Order Added by Discern Expert. Performed By: #### 2 895504 #### VIRAL [facility] [address] [place] [address] UA Completeon 11-28-2018 Color (U) Yellow Normal Yellow [facility] Comment on above: Performed By: #### 8 [id number] #### VIRAL Urinalysis Automated Subsection [facility] [place] [address] Glucose (U) [Mass/Vol] Negative Normal Negative [facility] Comment on above: Performed By: #### 8 [id number] #### VIRAL Urinalysis [employer]ated [employer] [facility] [place] [address] Ketones Ql (U) Negative Normal Negative [facility] Comment on above: Performed By: #### 8 [id number] #### VIRAL Urinalysis Automated [employer]section [facility] [place] [id number] RBC (U) [#/Vol] 10-20 Abnormal 0-3 [facility] Comment on above: Performed By: #### 8 [id number] #### VIRAL Urinalysis [employer] [address] [place] [address] UA Blood 3+ Normal Negative [facility] Comment on above: Performed By: #### 8 [id number] #### VIRAL Urinalysis [employer] [facility] [place] [address] UA Bacteria 1+ /HPF Abnormal None [facility] Comment on above: Performed By: #### 8 [id number] #### VIRAL Urinal[facility] [employer] [address] [place] [address] UA Clarity Clear Normal Clear [facility] Comment on above: Performed By: #### 8 [id number] #### VIRAL Urinalysis [employer] [address] [place] [address] UA Leuk Est Negative Normal Negative [facility] Comment on above: Performed By: #### 8 [id number] #### VIRAL Urinal[facility] [employer] [address] [place] [address] UA Nitrite Negative Normal Negative [facility] Comment on above: Performed By: #### 8 [id number] #### VIRAL Urinalysis [employer] [address] [place] [address] UA pH 6.0 Normal 4.6-8.0 [facility] Comment on above: Performed By: #### 8 [id number] #### VIRAL Urinalysis [employer] [address] [place] [address] UA Protein Negative Normal Negative [facility] Comment on above: Performed By: #### 8 [id number] #### VIRAL Urinalysis [employer] [address] [place] [address] UA Spec Grav 1.004 Normal 1.003-1.030 [facility] Comment on above: Performed By: #### 8 [id number] #### VIRAL Urinalysis [employer] [address] [place] [address] UA Squam Epithelial 0-5 Normal 0-5 [facility] Comment on above: Performed By: #### 8 [id number] #### VIRAL Urinalysis [employer] [address] [place] [address] UA Urobilinogen Negative Normal [facility] Comment on above: Result Comment: Due to a manufacturing issue, low positive urobilinogen results may be fasely positive. Correlate with urine bilirubin and additional clinical/laboratory findings to assess the risk of hemolytic anemia or liver disease. If clinically indicated, repeat testing with an alternate method is available by contacting the laboratory within 24 hours. Performed By: #### 8 [id number] #### VIRAL Urinalysis [employer] [address] [place] [address] UA WBC 0-5 Normal 0-5 [facility] Comment on above: Performed By: #### 8 [id number] #### VIRAL Urinalysis [employer] [address] [place] [address] Urobilinogen Qn (U) Negative Normal Negative [facility] Comment on above: Performed By: #### 8 [id number] #### VIRAL Urinalysis [employer] [address] [place] [address] eGFRon 11-28-2018 GFR/1.73 sq M predicted among non-blacks MDRD (S/P/Bld) [Vol rate/Area] 56 mL/min/1.73 m2 Normal [facility] Comment on above: Order Comment: Order added by Discern Expert. Performed By: #### 1 [id number] #### V[facility]AL [employer] [address] [place] [address] GFR/1.73 sq M predicted among non-blacks MDRD (S/P/Bld) [Vol rate/Area] 46 mL/min/1.73 m2 Normal [facility] Comment on above: Order Comment: Order added by Discern Expert. Performed By: #### 1 [id number] #### [facility]AL [employer] [address] [place], [place] [address] zzplt morphon 11-28-2018 Platelet morphology finding Nom (Bld) NORMAL Normal [facility] Comment on above: Performed By: #### 9 [id number] #### VIRAL RemHemo [address] [place], [place] [address] Platelets (Bld) [#/Vol] NORMAL Normal [facility] Comment on above: Performed By: #### 9 [id number] #### VIRAL RemHemo [facility] [place] [id number] Vital Signs Date Time Vital Sign Value Performing Clinician Facility 02-13-2025 21:01-0400 Body height 162.6 cm Zenaida Joshi MD Work Phone: [phone] [place] [address] 02-13-2025 21:01-0400 Body mass index (BMI) [Ratio] 29.18 kg/m2 Zenaida Joshi MD Work Phone: [phone])[phone] [place] [address] 02-13-2025 21:01-0400 Body temperature 97.7 [degF] Zenaida Joshi MD Work Phone: 9(374)536-367626 [place] [address] 02-13-2025 21:01-0400 Body weight 77.11 kg Zenaida Joshi MD Work Phone: 4(057)240-289326 [place] [address] 02-13-2025 21:01-0400 Diastolic blood pressure 82 mm[Hg] Zenaida Joshi MD Work Phone: 9(500)462-510026 [place] [address] 02-13-2025 21:01-0400 Heart rate 75 /min Zenaida Joshi MD Work Phone: 2(812)429-792226 [place] [address] 02-13-2025 21:01-0400 Respiratory rate 16 /min Zenaida Joshi MD Work Phone: 9(322)[phone] [place] [address] 02-13-2025 21:01-0400 SaO2% (BldA) [Mass fraction] 99 % Zenaida Joshi MD Work Phone: 1(863)198-253726 [place] [address] 02-13-2025 21:01-0400 Systolic blood pressure 147 mm[Hg] Zenaida Joshi MD Work Phone: [phone])[phone] [place] [address] 04-12-2024 14:06-0500 Body temperature 98.49 [degF] Blayne Lawrence APRN-ACCREDITED PHARMACY TECHNICIAN Work Phone: [facility] 04-12-2024 14:06-0500 Diastolic blood pressure 77 mm[Hg] Blayne Lawrence POPULATION HEALTH COACH-ACCREDITED PHARMACY TECHNICIAN Work Phone: [facility] 04-12-2024 14:06-0500 Heart rate 105 /min Blayne Lawrence POPULATION HEALTH COACH-ACCREDITED PHARMACY TECHNICIAN Work Phone: [facility] 04-12-2024 14:06-0500 Respiratory rate 16 /min Blayne Lawrence POPULATION HEALTH COACH-ACCREDITED PHARMACY TECHNICIAN Work Phone: [facility] 04-12-2024 14:06-0500 SaO2% (BldA) [Mass fraction] 97 % Blayne Lawrence POPULATION HEALTH COACH-ACCREDITED PHARMACY TECHNICIAN Work Phone: [facility] 04-12-2024 14:06-0500 Systolic blood pressure 138 mm[Hg] Blayne Lawrence POPULATION HEALTH COACH-ACCREDITED PHARMACY TECHNICIAN Work Phone: [facility] 06-01-2022 16:00-0500 Diastolic blood pressure 76 mm[Hg] Text Entry Free [facility] 06-01-2022 16:00-0500 Heart rate 77 /min Text Entry Free [facility] 06-01-2022 16:00-0500 Respiratory rate 18 /min Text Entry Free [facility] 06-01-2022 16:00-0500 SaO2% (BldA) [Mass fraction] 98 % Text Entry Free [facility] 06-01-2022 16:00-0500 Systolic blood pressure 118 mm[Hg] Text Entry Free [facility] 06-01-2022 12:38-0500 Body height 162.5 cm Text Entry Free [facility] 06-01-2022 12:38-0500 Body temperature 98.24 [degF] Text Entry Free [facility] 01-10-2021 07:51-0400 Body height 160.02 cm Elise Marcelino II, MD Work Phone: AU-Hxjesjb-Evbrkdz Work Phone: 01-10-2021 07:51-0400 Body mass index (BMI) [Ratio] 29.05 kg/m2 Elise Marcelino II, MD Work Phone: GN-Parcqnc-Odejrbl Work Phone: 01-10-2021 07:51-0400 Body surface area Derived from formula 1.78 m2 Elise Marcelino II, MD Work Phone: LH-Ospasir-Yiohyfr Work Phone: 01-10-2021 07:51-0400 Body weight 74.39 kg Elise Marcelino II, MD Work Phone: OC-Yemggcl-Renljqh Work Phone: 01-10-2021 07:51-0400 Diastolic blood pressure 90 mm[Hg] Elise Marcelino II, MD Work Phone: QP-Lkyonaw-Hsvaagc Work Phone: 01-10-2021 07:51-0400 Heart rate 109 /min Elise Marcelino II, MD Work Phone: HF-Zfhgoul-Iovswee Work Phone: 01-10-2021 07:51-0400 Systolic blood pressure 160 mm[Hg] Elise Marcelino II, MD Work Phone: AC-Yzrbrvy-Rpwntpm Work Phone: 04-07-2019 09:28-0500 BMI (Body Mass Index) 32.88 kg/m2 Elise Marcelino II WN-Zjdqmsm-Amicfwg Work Phone: 04-07-2019 09:28-0500 Body weight 86.3 kg Elise Marcelino II AZ-Ywqmvwk-Yqofa nd Work Phone: 04-07-2019 09:28-0500 BP Diastolic 84 mm[Hg] Elise Marcelino II UL-Rcuqkiq-Uxjyk nd Work Phone: 04-07-2019 09:28-0500 BP Systolic 121 mm[Hg] Elise Marcelino II QS-Wtebxuc-Qntbn nd Work Phone: 04-07-2019 09:28-0500 BSA (Body Surface Area) 1.91 m2 Elise Marcelino II SJ-Cfdkbvk-Pjxucgf Work Phone: 04-07-2019 09:28-0500 Height 162 cm Elise Marcelino II AY-Ottmtcp-Dkcej nd Work Phone: 04-07-2019 09:28-0500 Pulse (Heart Rate) 115 /min Elise Marcelino II, MP-Urology-[place] h[place] Work Phone: Encounters Encounter Date Encounter Type Care Provider Facility Start: 02-23-2025 ambulatory Anson Headley Tova lity:[facility] Start: 02-13-2025 End: 02-14-2025 Emergency department patient visit Zenaida Joshi MD Work Phone: [facility] Emergency Medicine Comment on above: Ureterolithiasis (Pr imary Dx); Acute cystitis with hematuria; Renal mass Start: 04-12-2024 End: 04-12-2024 Patient encounter procedure Blayne Lawrence POPULATION HEALTH COACH-ACCREDITED PHARMACY TECHNICIAN Work Phone: [facility] Comment on above: Gingival swelling (P rimary Dx); Acute non-recurrent maxillary sinusitis Start: 04-12-2024 End: 04-12-2024 ambulatory BLAYNE LAWRENCE [facility] Start: 06-01-2022 End: 06-01-2022 Emergency department patient visit Jax Casey [facility] Emergency 03 Start: 05-28-2022 ambulatory Provider Pending Facili ty:[facility] Start: 05-24-2022 ambulatory Provider Pending Facili ty:[id number] Start: 05-17-[address] Jonnie Whitehead Facil ity:[id number] Start: 05-13-2022 ambulatory Provider Pending Facili ty:[facility] Start: 05-09-[address] Jonnie Whitehead Facil ity:[id number] Start: 08-21-2021 Chart Update Elise Treviño Work Phone: ZQ-Wfuskda-Epqlgcb Work Phone: Start: 08-16-2021 ambulatory Provider Pending Facili ty:[id number] Start: 01-10-2021 Office outpatient vi sit 15 minutes Elise Marcelino II, MD Work Phone: JT-Xfhwbbg-Atwrths Work Phone: Start: 06-30-2019 Patient encounter procedure VANIA Ramona ELIZABETH [facility] Start: 04-07-2019 Patient encounter procedure Elise lucas II, MPYA-Jhfhcnt-Vpnetjg Work Phone: Start: 01-06-2019 Patient encounter procedure Elise lucas II KT-Qyjaueg-Heinaej Work Phone: Start: 02-12-2018 Patient encounter SUSAN VILLATORO [facility] Start: 01-05-2018 Patient encounter LAYO LU [facility] Start: 04-04-2006 End: 04-04-2006 ambulatory Maya Benson Neurology Procedures Date Procedure Procedure Detail Performing Clinician Start: 02-13-2025 Urinalysis microscop ic panel - Urine Qualitative by Automated Zenaida Joshi MD Work Phone: Start: 02-13-2025 Urnls dip stick/tabl et reagent auto microscopy Zenaida Joshi MD Work Phone: Start: 02-13-2025 Ct abdomen & pelvis w/o contrast material Zenaida Joshi MD Work Phone: Start: 02-13-2025 Comprehensive metabo lic panel Zenaida Joshi MD Work Phone: Start: 06-01-2022 End: 06-01-2022 EKG impression Ajx I [place] Start: 04-07-2019 Ultrasound Kidney Bilateral Elise Marcelino II Start: 07-11-2005 Mammography Maya Kennedy edwards Cholecystectomy Elise Marcelino II Cystoscopy Elise Marcelino II Lithotripsy Elise Marcelino II Splenectomy Elise Marcelino II Plan of Treatment Date Care Activity Detail Author Start: 2032 RSV High Risk: (Elde rly (60+) or Population) (1 - 1-dose 75+ series) RSV High Risk: (Elderly (60+) or Population) (1 - 1-dose 75+ series) [facility] Start: 02-14-2028 Diabetes mellitus screening Diabetes Screening [facility] Start: 12-20-2024 COVID-19 Vaccine ( season) COVID-19 Vaccine ( season) [facility] Start: 11-19-2024 Influenza vaccination Influenza Vacc ine (#1) [facility] Start: 04-12-2024 End: 04-12-2025 CBC W Auto Differential panel - Blood [facility] Service Area Work Phone: Comment on above: Expected: 04/12/2024 (Approximate), Expires: 04/12/2025 Start: 12-21-2023 COVID-19 Vaccine ( season) COVID-19 Vaccine ( season) [facility] Start: 12-21-2023 Influenza vaccination Influenza Vacc ine (#1) [facility] Start: 11-29-2022 Patient encounter procedure Outpatient [facility] Med Onc [address] [id number] Start: 29-Nov-2022 11:00 Hamad, Jonnie Intent [facility] Start: 2022 Screening for osteoporosis Bone Density Scan [facility] Start: 12-20-2020 Influenza vaccination INFLUENZ A (Season Ended) [facility] Start: 04-07-2019 Ultrasound Kid bryanna Bilateral AC-Zpynips-Yssrula Work Phone: Start: 2017 RSV High Risk: (Elde rly (60+) or Population) (1 - Risk 60-74 years 1-dose series) RSV High Risk: (Elderly (60+) or Population) (1 - Risk 60-74 years 1-dose series) [facility] Start: 07-17-2011 LIPID SCREEN LIPID SCREEN [facility] Start: 07-16-2009 DIABETES SCREEN DIABETES SCREEN [facility] Start: 10-27-2007 Screening for malign ant neoplasm of colon [facility] Start: 10-27-2007 SHINGRIX VACCINE (1 of 2) SHINGRIX VACCINE (1 of 2) [facility] Start: 07-11-2006 Mammography MAMMOGRAM [facility] Start: 01-30-2006 Pneumococcal vaccination Pneum ococcal Vaccine (3 of 3 - PCV) [facility] Start: 1997 Screening for malign ant neoplasm of breast Mammogram [facility] Start: 10-27-1987 HPV TESTING HPV TESTING [facility] Start: 10-27-1979 DTaP/Tdap/Td Vaccine s (1 - Tdap) DTaP/Tdap/Td Vaccines (1 - Tdap) [facility] Start: 1978 PAP TESTING PAP TESTING [facility] Start: 1976 Urine microalbumin profile DTAP,TDAP,TD (1 - Tdap) [facility] Start: 1976 Zoster Vaccines (1 of 2) Zoste r Vaccines (1 of 2) [facility] Start: 10-27-1975 Hepatitis C screening Hepatitis C Zaid alexandra [facility] Start: 1969 Adult depression screening assessment DEPRESSION SCREENING [facility] Start: 1969 COVID-19 VACCINE (1) COVID-19 VACCIN E (1) [facility] Start: 10-27-1959 Meningococcal Vaccin e (1 - Risk 2-dose series) Meningococcal Vaccine (1 - Risk 2-dose series) [facility] Start: 01-26-1959 HIB Vaccines (1 of 1 - Risk 1-dose series) HIB Vaccines (1 of 1 - Risk 1-dose series) [facility] Start: 1958 MMR Vaccines (1 of 1 - Standard series) MMR Vaccines (1 of 1 - Standard series) [facility] Start: 1957 Lipid panel Lipid Panel [facility] Start: 1957 Medicare Annual Well ness Visit Medicare Annual Wellness Visit (AWV) [facility] Start: 1957 Screening for malign ant neoplasm of colon [facility] Start: 1957 Screening for osteoporosis Bone Density Scan [facility] End: 02-13-2025 Bacteria identified in Urine by Culture [facility] Work Phone: Comment on above: Once (Lab) for 1 Occ urrences starting 02/13/2025 until 02/13/2025 CT Abdomen WO contrast CT abdome n pelvis wo IV contrast Imaging STAT 02/13/2025 9:41 PM EDT [facility] Work Phone: End: 02-13-2025 Extra Urine Son Tube [facility] Work Phone: Comment on above: Once for 1 Occurrenc es starting 02/13/2025 until 02/13/2025 H/O splenectomy History of splenectomy [facility] H/O: surgery History of dilat ion and curettage [facility] History of cholecystectomy History of laparoscopic cholecystectomy [facility] History of operative procedure on foot History of foot surgery [facility] Past history of procedure History of lithotripsy [facility] Past history of procedure H/O lithotripsy [facility] End: 02-13-2025 Urinalysis complete W Reflex Culture panel - Urine [facility] Service Area Work Phone: Comment on above: Once (Lab) for 1 Occ urrences starting 02/13/2025 until 02/13/2025 XG-Dvetufs-Bnpj and Work Phone: NEGATED: Highlighted row has been ruled out! Planned Goals not documented TD-Uvgqmeu-Exvxbzl Work Phone: Immunizations Immunization Date Immunization Notes Care Provider Sinan gomez 03-19-2007 influenza virus vaccine, unspecified formulation Blayne Lawrence POPULATION HEALTH COACH-ACCREDITED PHARMACY TECHNICIAN Work Phone: [facility] Work Phone: Payers Date Payer Category Payer Self-pay 2008 Medicare MEDICARE PART A AND B [id number] 2007 Medicare [id number] 2007 Medicare [id number] 2007 Unknown 1957 Unknown [id number] 1957 Unknown [id number] 1957 Unknown [id number] 1957 Unknown [id number] 1957 Unknown [id number] 9 1957 Unknown [id number] 9 1957 Unknown [id number] 9 1957 Unknown [id number] 9 1957 Unknown [id number] 9 1957 Unknown [id number] 5 1957 Unknown [id number] 3 1957 Unknown [id number] 3 Self-pay SELF PAY HSP/MED ICAL SELF PAY [id number] Through 2015 SELF PAY Indemnity [id number] Unknown [id number] Social History Date Type Detail Facility Start: 03-06-2006 Tobacco smoking status SCIS Current every day smoker [facility] History of tobacco use Cigarette Smoker [facility] Start: 03-06-2006 Cigarettes smoked current (pack per day) - Reported [facility] Start: 03-06-2006 Alcohol intake Current drinke r of alcohol (finding) [facility] Start: 1955 Sex Assigned At Not on file [facility] Tobacco smoking consumption unknown [facility] Gender identity Not on file [facility] dscovered [facility] Work Phone: Start: 04-02-2024 End: 04-12-2024 Exposure to SARS-CoV-2 (event) Not sure [facility] Start: 03-16-2022 Sex Female (finding) [facility] NEGATED: Highlighted row - - JR-Nvcyarw-Cvkvcxd Work Phone: Functional Status Date Assessment Result Facility 02-13-2025 [facility] 02-13-2025 Functional status [facility] Work Phone: 02-13-2025 [place] - 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 severity rating scale screener - recent [C-SSRS] [facility] Work Phone: NEGATED: Highlighted row Functional performance Functional status health issues are not documented Disease YP-Bkopomv-Ptfmrto Work Phone: Mental Status Date Assessment Result Facility NEGATED: Highlighted row Cognitive function [Interpretation] Cognitive status health issues are not documented Disease [facility] Work Phone: Hospital Discharge instructions 02-14-2025 Discharge InstructionsAttachments Note Date & Type Note Facility 02-14-2025 Hospital Discharg e instructions Zenaida Joshi MD - 02/14/2025 1:02 AM EDT [place] has urology services, Dr. Aravind Headley at [phone]. I do not think your kidney stone is going to pass without you getting a significant infection or damaging your kidney. You have been given contact information for our local oncologist as well. Please return to the emergency department if you have any additional concerns. The following attachments cannot be sent through Care Everywhere.Urinary tract infection Discharge instructions (Latvian)Kidney stones in adults ED discharge instructions (Latvian)documented in this encounter [facility] Work Phone: Physician Emergency department Note 02-13-2025 Zenaida Joshi MD - 02/13/2025 9:00 PM EDT Note Date & Type Note Facility 02-13-2025 Physician Emergency department Note 69-year-old female presents with a chief complaint of right lower abdominal pain. This been going on for about 2 weeks no. She has a history of kidney stones and thinks this is a kidney stone however she does not have as much pain as usual. Tonight she started feeling nauseous but had no emesis and that is why she came in. She has some hematuria but no dysuria. Review of Systems Physical Exam Vitals and nursing note reviewed. Constitutional: Appearance: She is not ill-appearing or toxic-appearing. HENT: Head: Normocephalic and atraumatic. Right Ear: Tympanic membrane normal. Left Ear: Tympanic membrane normal. Nose: Nose normal. Mouth/Throat: Mouth: Mucous membranes are moist. Pharynx: No oropharyngeal exudate or posterior oropharyngeal erythema. Eyes: Extraocular Movements: Extraocular movements intact. Conjunctiva/sclera: Conjunctivae normal. Pupils: Pupils are equal, round, and reactive to light. Cardiovascular: Rate and Rhythm: Normal rate and regular rhythm. Pulmonary: Effort: Pulmonary effort is normal. No respiratory distress. Breath sounds: Normal breath sounds. No wheezing, rhonchi or rales. Abdominal: General: There is no distension. Palpations: Abdomen is soft. There is no mass. Tenderness: There is no abdominal tenderness. There is no guarding. Musculoskeletal: General: No deformity. Normal range of motion. Cervical back: Neck supple. No tenderness. Skin: General: Skin is warm and dry. Neurological: General: No focal deficit present. Mental Status: She is alert and oriented to person, place, and time. Psychiatric: Mood and Affect: Mood normal. Labs Reviewed CBC WITH AUTO DIFFERENTIAL - Abnormal Result Value WBC 18.0 (*) nRBC 0.0 RBC 4.74 Hemoglobin 14.4 Hematocrit 43.0 MCV 91 MCH 30.4 MCHC 33.5 RDW 13.4 Platelets 407 Neutrophils % 41.5 Immature Granulocytes %, Automated 0.3 Lymphocytes % 48.4 Monocytes % 7.5 Eosinophils % 1.9 Basophils % 0.4 Neutrophils Absolute 7.46 Immature Granulocytes Absolute, Automated 0.05 Lymphocytes Absolute 8.70 (*) Monocytes Absolute 1.34 (*) Eosinophils Absolute 0.34 Basophils Absolute 0.08 COMPREHENSIVE METABOLIC PANEL - Abnormal Glucose 146 (*) Sodium 139 Potassium 3.8 Chloride 103 Bicarbonate 27 Anion Gap 13 Urea Nitrogen 15 Creatinine 0.91 eGFR 69 Calcium 9.8 Albumin 4.3 Alkaline Phosphatase 64 Total Protein 6.9 AST 13 Bilirubin, Total 0.5 ALT 11 URINALYSIS WITH REFLEX CULTURE - Abnormal Color, Urine Light-[place]ton (*) Appearance, Urine Ex.Turbid (*) Specific [place], Urine 1.028 pH, Urine 5.5 Protein, Urine 100 (2+) (*) Glucose, Urine Normal Blood, Urine OVER (3+) (*) Ketones, Urine TRACE (*) Bilirubin, Urine NEGATIVE Urobilinogen, Urine Normal Nitrite, Urine NEGATIVE Leukocyte Esterase, Urine 25 Merlin/uL (*) Narrative: OVER is reported when the result is greater than the clinically reportable range. MICROSCOPIC ONLY, URINE - Abnormal WBC, Urine 11-20 (*) RBC, Urine >20 (*) Squamous Epithelial Cells, Urine 1-9 (SPARSE) Budding Yeast, Urine PRESENT (*) Mucus, Urine 2+ Calcium Oxalate Crystals, Urine 1+ URINE CULTURE URINALYSIS WITH REFLEX CULTURE Narrative: The following orders were created for panel order Urinalysis with Reflex Culture. Procedure Abnormality Status --------- ------ Urinalysis with Reflex C...[[id number]] Abnormal Final result Extra Urine Son Tube[[id number]] In process Please view results for these tests on the individual orders. EXTRA URINE SON TUBE CT abdomen pelvis wo IV contrast Procedures Medical Decision Making 69-year-old female presents with a chief complaint of right lower abdominal pain. This been going on for about 2 weeks no. She has a history of kidney stones and thinks this is a kidney stone however she does not have as much pain as usual. Tonight she started feeling nauseous but had no emesis and that is why she came in. She has some hematuria but no dysuria. IV was established patient was treated with a liter of normal saline, 50 mg IVP Toradol and 4 mg IVP Zofran. Urinalysis shows some hematuria and white cells.'s concerning for urinary tract infection. I ordered 1 g IVP Rocephin. Patient CT scan demonstrates a 7 mm calculus in the proximal right ureter. Most concerning was the 6.8 x 4.4 x 4.4 heterogeneous mass in the left kidney. We did have an extensive conversation regarding both the kidney stone and the renal mass. Patient is adamant that she does not want admitted either for the kidney stone or the mass in the left kidney. She does not want to go through any cancer treatment. She would be willing to talk to a oncologist. Will provide contact information for Dr. Rae. Will also provide contact information for the urology service in [place]. Patient does not intend to travel very far. Patient's vital signs are stable. She is nontoxic and well-appearing. DDx: UTI, pyelonephritis, renal stone, ureterolithiasis Diagnoses as of 02/14/25109 Ureterolithiasis Acute cystitis with hematuria Renal mass Zenaida Joshi MD 02/14/25109 [facility] Work Phone: Emergency department Note 02-13-2025 Zenaida Joshi MD - 02/13/2025 9:00 PM EDT Note Date & Type Note Facility 02-13-2025 Emergency department Note 69-year-old female presents with a chief complaint of right lower abdominal pain. This been going on for about 2 weeks no. She has a history of kidney stones and thinks this is a kidney stone however she does not have as much pain as usual. Tonight she started feeling nauseous but had no emesis and that is why she came in. She has some hematuria but no dysuria. Review of Systems Physical Exam Vitals and nursing note reviewed. Constitutional: Appearance: She is not ill-appearing or toxic-appearing. HENT: Head: Normocephalic and atraumatic. Right Ear: Tympanic membrane normal. Left Ear: Tympanic membrane normal. Nose: Nose normal. Mouth/Throat: Mouth: Mucous membranes are moist. Pharynx: No oropharyngeal exudate or posterior oropharyngeal erythema. Eyes: Extraocular Movements: Extraocular movements intact. Conjunctiva/sclera: Conjunctivae normal. Pupils: Pupils are equal, round, and reactive to light. Cardiovascular: Rate and Rhythm: Normal rate and regular rhythm. Pulmonary: Effort: Pulmonary effort is normal. No respiratory distress. Breath sounds: Normal breath sounds. No wheezing, rhonchi or rales. Abdominal: General: There is no distension. Palpations: Abdomen is soft. There is no mass. Tenderness: There is no abdominal tenderness. There is no guarding. Musculoskeletal: General: No deformity. Normal range of motion. Cervical back: Neck supple. No tenderness. Skin: General: Skin is warm and dry. Neurological: General: No focal deficit present. Mental Status: She is alert and oriented to person, place, and time. Psychiatric: Mood and Affect: Mood normal. Labs Reviewed CBC WITH AUTO DIFFERENTIAL - Abnormal Result Value WBC 18.0 (*) nRBC 0.0 RBC 4.74 Hemoglobin 14.4 Hematocrit 43.0 MCV 91 MCH 30.4 MCHC 33.5 RDW 13.4 Platelets 407 Neutrophils % 41.5 Immature Granulocytes %, Automated 0.3 Lymphocytes % 48.4 Monocytes % 7.5 Eosinophils % 1.9 Basophils % 0.4 Neutrophils Absolute 7.46 Immature Granulocytes Absolute, Automated 0.05 Lymphocytes Absolute 8.70 (*) Monocytes Absolute 1.34 (*) Eosinophils Absolute 0.34 Basophils Absolute 0.08 COMPREHENSIVE METABOLIC PANEL - Abnormal Glucose 146 (*) Sodium 139 Potassium 3.8 Chloride 103 Bicarbonate 27 Anion Gap 13 Urea Nitrogen 15 Creatinine 0.91 eGFR 69 Calcium 9.8 Albumin 4.3 Alkaline Phosphatase 64 Total Protein 6.9 AST 13 Bilirubin, Total 0.5 ALT 11 URINALYSIS WITH REFLEX CULTURE - Abnormal Color, Urine Light-[place] (*) Appearance, Urine Ex.Turbid (*) Specific [place], Urine 1.028 pH, Urine 5.5 Protein, Urine 100 (2+) (*) Glucose, Urine Normal Blood, Urine OVER (3+) (*) Ketones, Urine TRACE (*) Bilirubin, Urine NEGATIVE Urobilinogen, Urine Normal Nitrite, Urine NEGATIVE Leukocyte Esterase, Urine 25 Merlin/uL (*) Narrative: OVER is reported when the result is greater than the clinically reportable range. MICROSCOPIC ONLY, URINE - Abnormal WBC, Urine 11-20 (*) RBC, Urine >20 (*) Squamous Epithelial Cells, Urine 1-9 (SPARSE) Budding Yeast, Urine PRESENT (*) Mucus, Urine 2+ Calcium Oxalate Crystals, Urine 1+ URINE CULTURE URINALYSIS WITH REFLEX CULTURE Narrative: The following orders were created for panel order Urinalysis with Reflex Culture. Procedure Abnormality Status --------- ------ Urinalysis with Reflex C...[[id number]] Abnormal Final result Extra Urine Son Tube[[id number]] In process Please view results for these tests on the individual orders. EXTRA URINE SON TUBE CT abdomen pelvis wo IV contrast Procedures Medical Decision Making 69-year-old female presents with a chief complaint of right lower abdominal pain. This been going on for about 2 weeks no. She has a history of kidney stones and thinks this is a kidney stone however she does not have as much pain as usual. Tonight she started feeling nauseous but had no emesis and that is why she came in. She has some hematuria but no dysuria. IV was established patient was treated with a liter of normal saline, 50 mg IVP Toradol and 4 mg IVP Zofran. Urinalysis shows some hematuria and white cells.'s concerning for urinary tract infection. I ordered 1 g IVP Rocephin. Patient CT scan demonstrates a 7 mm calculus in the proximal right ureter. Most concerning was the 6.8 x 4.4 x 4.4 heterogeneous mass in the left kidney. We did have an extensive conversation regarding both the kidney stone and the renal mass. Patient is adamant that she does not want admitted either for the kidney stone or the mass in the left kidney. She does not want to go through any cancer treatment. She would be willing to talk to a oncologist. Will provide contact information for Dr. Rae. Will also provide contact information for the urology service in [place]. Patient does not intend to travel very far. Patient's vital signs are stable. She is nontoxic and well-appearing. DDx: UTI, pyelonephritis, renal stone, ureterolithiasis Diagnoses as of 02/14/25109 Ureterolithiasis Acute cystitis with hematuria Renal mass Zenaida Joshi MD 02/14/25109 documented in this encounter [facility] Work Phone: History of Present illness Narrative 04-12-2024 Blayne Lawrence APRN-ACCREDITED PHARMACY TECHNICIAN - 04/12/2024 1:55 PM EST Note Date & Type Note Facility 04-12-2024 History of Present illness Narrative Images from the original note were not included. 68 y.o. female presents for evaluation of nasal congestion, body aches, fatigue and ear pressure for the past 2 weeks. States she has began to have left lower dental pain today as well. She is concerned that she has a bacterial infection. 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 Denies fever, nausea, vomiting, diarrhea, cough, chest pains, nausea, vomiting, diarrhea or any other associated symptom or complaint. No OTC meds for symptom management. No other complaints. Vitals: 04/12/24 1406 BP: 138/77 Pulse: 105 Resp: 16 Temp: 36.9 C (98.5 F) SpO2: 97% Allergies Allergen Reactions Gabapentin Unknown Hydromorphone Unknown Meperidine Unknown reaction in past, but has had many times since and has been o.k. Medication Documentation Review Audit Reviewed by DESTINEY Coburn (Nurse Practitioner) on 04/12/24 at 1413 Medication Order Taking? 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 Constitutional: General: She is not in acute distress. Appearance: Normal appearance. She is normal weight. She is not ill-appearing, toxic-appearing or diaphoretic. HENT: Head: Normocephalic and atraumatic. Right Ear: Tympanic membrane and ear canal normal. Left Ear: Tympanic membrane and ear canal normal. Nose: Congestion present. Mouth/Throat: Lips: [place]. Mouth: Mucous membranes are moist. Dentition: Abnormal dentition. Dental tenderness, gingival swelling and dental caries present. No dental abscesses. Tongue: No lesions. Pharynx: Oropharynx is clear. Uvula midline. No pharyngeal swelling, oropharyngeal exudate, posterior oropharyngeal erythema, uvula swelling or postnasal drip. Tonsils: No tonsillar exudate or tonsillar abscesses. 0 on the left. Eyes: Extraocular Movements: Extraocular movements intact. Conjunctiva/sclera: Conjunctivae normal. Pupils: Pupils are equal, round, and reactive to light. Cardiovascular: Rate and Rhythm: Normal rate. Pulmonary: Effort: Pulmonary effort is normal. Breath sounds: Normal breath sounds. Lymphadenopathy: Cervical: No cervical adenopathy. Skin: General: Skin is warm and dry. Neurological: General: No focal deficit present. Mental Status: She is alert and oriented to person, place, and time. Psychiatric: Mood and Affect: Mood normal. Behavior: Behavior normal. Assessment/Plan/MDM Danitza was seen today for uri. Diagnoses and all orders for this visit: Gingival swelling (Primary) - CBC and Auto Differential; Future - amoxicillin-pot clavulanate (Augmentin) 875-125 mg tablet; Take 1 tablet by mouth 2 times a day for 7 days. Acute non-recurrent maxillary sinusitis - CBC and Auto Differential; Future Patient requesting CBC as she feels she may have elevated white count and feels that this indicates a bacterial infection. We did discuss possibility of bacterial/viral infection with or without leukocytosis. Will obtain CBC today. Will begin on Augmentin for sinusitis and concerns for left lower dental infection as well. Encouraged OTC Tylenol, push p.o. fluids and follow-up with dentist DOMENICO. Patient's clinical presentation is otherwise unremarkable at this time. Patient is discharged with instructions to follow-up with primary care or seek emergency medical attention for worsening symptoms or any new concerns. I did personally review Danitza's past medical history, surgical history, social history, as well as family history (when relevant). In this case, I also oversaw the her drug management by reviewing her medication list, allergy list, as well as the medications that I prescribed during the UC course and/or recommended as an out-patient (including possible OTC medications such as acetaminophen, NSAIDs , etc). After reviewing the items above, I did look at previous medical documentation, such as recent hospitalizations, office visits, and/or recent consultations with PCP/specialist. SDOH: Another factor that I considered in Danitza's care was her Social Determinants of Health (SDOH). During this UC encounter, she did not have social determinants of health. Those SDOH influencing Danitza's care are: none Blayne Lawrence CNP [facility] [phone] documented in this encounter [facility] Work Phone: Clinical Note 05-24-2022 Note Date & Type Note Facility 05-24-2022 Note Clinic Note: Education Assessment: Learning BarriersNo barriers TaughtPatient Primary Language of [facility] Visit: Topic(s): Clinic VisitFollow-up plan MethodVerbal, Teach-Back, Handout EvaluationTeaches back Nursing Note: Nursing NotePT HAD A PHONE VISIT TODAY. PT TO GET A CBC AND FLOW DRAWN NEXT WEEK- WILL WATCH FOR THOSE RESULTS AND MD TO CALL PT WITH THOSE. LABS AGAIN AT [facility] BEFORE NEXT APPT. PT SET UP FOR PHONE VISIT WITH MD ON 11/29 AT 11AM. 2ND REFERRAL FAXED TO PALLIATIVE Electronic Signatures: Rebecca Carballo (SONIA) (Signed 24-May-2022 12:23) Authored: Education Assessment, Clinic Visit, Nursing Note Last Updated: 24-May-2022 12:23 by Rebecca Carballo (SONIA) [facility] Clinical Note 05-09-2022 Note Date & Type Note Facility 05-09-2022 Note Clinic Note: Education Assessment: Learning BarriersNo barriers TaughtPatient Primary Language of [facility] Clinic Visit: Topic(s): Clinic VisitFollow-up plan MethodVerbal, Teach-Back, Handout EvaluationTeaches back Nursing Note: Nursing NotePt had a new consult phone visit with dr whitehead. lab orders placed in the EMR. orders for ct scans placed and sent to PA. pt wants to call her self to schedule because of her chronic pain issue and what works best for it. f/u phone visit 06/06 3pm with md. referral faxed to [facility]iative care- they are to call pt to schedule visit Electronic Signatures: Rebecca Carballo (SONIA) (Signed 09-May-2022 11:43) Authored: Education Assessment, Clinic Visit, Nursing Note Last Updated: 09-May-2022 11:43 by Rebecca Carballo (SONIA) [facility] History of Present illness Narrative 08-22-2020 Note Date & Type Note Facility 08-22-2020 History of Present illness Narrative Patient is here for post op f/u..S/P right extracorporeal shock wave lithotripsy 08/22/20... Patient last year was supposed to have Right ESWL but had to hold off due to other medical problems. Denies flank pain. Denies N/V and F/C. LUTs are chronic and mild.. Denies frequency and urgency...Denies hematuria or dysuria....Nocturia x 1 depending on fluid intake..Caffeine makes LUTs worse. No medication for LUT'S. No recent UTI sx. Hx of benign renal cyst. [id number] Work Phone: Nurse Note 04-04-2006 04/04/2006 12:00 PM EST Note Date & Type Note Facility 04-04-2006 Nurse Note >> JALIL RING), BABS 04/04/2006 2:45 pm PATIENT EDUCATION/DISCHARGE INSTRUCTIONS: Diagnosis related to this procedure - DIZZINESS AND GIDDINESS (780.4) Topic: Post LP home instructions. Teaching points: Post procedure teaching : symptoms management, wound care, med. administration. Motivation to learn: Family Support: High; very involved in patient care. Cognitive Ability: Alert/Oriented Preferred Method of Learning: Written material Barriers To Learning: None Verbal and written instructions given to:patient Verbalizes understanding and denies questions at this time. Need For Follow-up: Completed, none required. Babs Ring)documented in this encounter [facility] Evaluation note Note Date & Type Note Facility Evaluation note Diagnosis Gingival swelling- Primary Acute non-recurrent maxillary sinusitis documented in this encounter [facility] Work Phone: Evaluation note Note Date & Type Note Facility Evaluation note Diagnosis Ureterolithiasis- Primary Calculus of ureter Acute cystitis with hematuria Renal mass Unspecified disorder of kidney and ureter documented in this encounter [facility] Work Phone: Summary Purpose Family History No Family History Records Found Mother Name Dates Details Family history of arthritis( V17.7, Z82.61) Status:Active Family history of malignant neoplasm(V16.9, Z80.9) Status:Active Father Name Dates Details Family history of malignant neoplasm(V16.9, Z80.9) Status:Active Brother Name Dates Details Family history of arthritis( V17.7, Z82.61) Status:Active Mother Name Dates Details Family history of malignant neoplasm(V16.9, Z80.9) Status:Active Family history of arthritis( V17.7, Z82.61) Status:Active Father Name Dates Details Family history of malignant neoplasm(V16.9, Z80.9) Status:Active Brother Name Dates Details Family history of arthritis( V17.7, Z82.61) Status:Active Mother Name Dates Details Family history of malignant neoplasm(V16.9, Z80.9) Status:Active Family history of arthritis( V17.7, Z82.61) Status:Active Father Name Dates Details Family history of malignant neoplasm(V16.9, Z80.9) Status:Active Brother Name Dates Details Family history of arthritis( V17.7, Z82.61) Status:Active Unknown Family Member Name Dates Details Family history of malignant neoplasm: Mother, Father(V16.9, Z80.9) Status:Active Family history of arthritis: Mother, Brother(V17.7, Z82.61) Status:Active Unknown Family Member Name Dates Details Family history of arthritis: Mother, Brother(V17.7, Z82.61) Status:Active Family history of malignant neoplasm: Mother, Father(V16.9, Z80.9) Status:Active Advance Directives No Advanced Directives Records FoundNo Advanced Directives Records FoundNo Advanced Directives Records FoundNo Advanced Directives Records FoundNo Advanced Directives Records FoundNo Advanced Directives Records FoundNo Advanced Directives Records FoundNo Advanced Directives Records FoundNo Advanced Directives Records Found Chief Complaint Post op f/u Additional Source Comments INFORMATION SOURCE (unrecogn ized section and content) DATE CREATED AUTHOR 03/12/2018 [facility] DATE CREATED AUTHOR AUTHOR'S ORGANIZ ATION 01/07/2019 [facility] DATE CREATED AUTHOR AUTHOR'S ORGANIZ ATION 06/30/2019 [facility] DATE CREATED AUTHOR AUTHOR'S ORGANIZ ATION 01/11/2021 [employer] DATE CREATED AUTHOR AUTHOR'S ORGANIZ ATION 06/05/2022 [facility] DATE CREATED AUTHOR AUTHOR'S ORGANIZ ATION 07/11/2022 [facility] DATE CREATED AUTHOR AUTHOR'S ORGANIZ ATION 04/17/2024 [facility] DATE CREATED AUTHOR AUTHOR'S ORGANIZ ATION 02/16/2025 [facility] DATE CREATED AUTHOR AUTHOR'S ORGANIZ ATION 02/21/2025 [facility] Source Comments (unrecognize d section and content) In the event this informatio n is protected by the Federal Confidentiality of Alcohol and Drug Abuse Patient Records regulations: The Federal rules restrict any use of the information to criminally investigate or prosecute any alcohol or drug abuse patient.[facility] <item> Privacy Markings (unrecogniz ed section and content) Section Author: Frida Cabrera PROHIBITION ON REDISCLOSURE OF CONFIDENTIAL INFORMATION This notice accompanies a disclosure of information concerning a client made to you with the consent of such client. Reason for Visit (unrecogniz ed section and content) Reason Comments URI Body aches, sinus pr essure, fatigue, ear pressure x 2 weeks Reason Comments Abdominal Pain Pt c/o RLQ pain toda y, blood in urine and nausea. Hx of kidney stones, states she has had right flank pain for the last few weeks. Scheduled Active and Recently Administ ered Medications (unrecognized section and content) Medication Order 02/12/2025 02/13/2025 02/14/2025 cefTRIAXone (Rocephin) 1 g in dextrose (iso) IV 50 mL (COMPLETED) 1 g, intravenous, at 100 mL/hr, Administer over 30 Minutes, Once, On 02/13/25 at 2340, For 1 dose, premix bag, Suspected Indication (Select all that apply): Urinary Tract Infection, Type of Therapy: Empiric, Type of Urinary Tract Infection: Complicated, Indications: Urinary Tract Infection 2354 (New Bag - Provider: Brionna Knutson RN) 54 (Stopped - Provider: Brionna Knutson RN) ketorolac (Toradol) injection 15 mg (COMPLETED) 15 mg, intravenous, Once, On 02/13/25 at 2100, For 1 dose 2128 (Given - Provider: Brionna Knutson RN) ketorolac (Toradol) injection 15 mg (COMPLETED) 15 mg, intravenous, Once, On Fri02/14/25 at 0025, For 1 dose 50 (Given - Provid er: Brionna Knutson RN) morphine injection 4 mg (COMPLETED) 4 mg, intravenous, Once, On Fri02/14/25 at 0025, For 1 dose 43 (Given - Provid er: Brionna Knutson RN) ondansetron (Zofran) injection 4 mg (COMPLETED) 4 mg, intravenous, Once, On Fri02/13/25 at 2100, For 1 dose, When administering via IV Push, administer over 3-5 minutes. 2128 (Given - Provider: Brionna Knutson RN) ondansetron (Zofran) injection 4 mg (COMPLETED) 4 mg, intravenous, Once, On Fri02/14/25 at 0025, For 1 dose, When administering via IV Push, administer over 3-5 minutes. 43 (Given - Provid er: Brionna Knutson RN) sodium chloride 0.9 % bolus 1,000 mL (COMPLETED) 1,000 mL, intravenous, at 999 mL/hr, Administer over 1 Hours, Once, On Fri02/13/25 at 2100, For 1 dose 2126 (New Bag - Provider: Brionna Knutson RN) 011 (Stopped - Provider: Brionna Knutson RN) Care Teams (unrecognized sec tion and content) Pel[employer] Skinner Relationship Specialty Start Date End Date Generic Provider, No Assigned Pcp, [place] [address] PCP - General Car Parker 02/13/25 FOR RECORDS PERTAINING TO PATIENTS WHO ARE OR HAVE BEEN ENROLLED IN A CHEMICAL DEPENDENCY/SUBSTANCEABUSE PROGRAM, SOME INFORMATION MAY BE OMITTED. This clinical summary was aggregated from multiple sources. Caution should be exercised in using it in the provision of clinical care. This summary normalizes information from multiple sources, and as a consequence, information in this document may materially change the coding, format and clinical context of patient data. In addition, data may be omitted in some cases. CLINICAL DECISIONS SHOULD BE BASED ON THE PRIMARY CLINICAL RECORDS. [facility]. [facility]. provides no warranty or guarantee of the accuracy or completeness of information in this document.
--- NOTE | 2025-02-23 06:25 | RAD_ITS ---
PROCEDURE: ABDOMEN SINGLE VIEW 02/23/2025 REASON FOR EXAM: PRE SURGERY TECHNIQUE: Procedure Code: RADABD Modality: DX Procedure: ABDOMEN SINGLE VIEW COMPARISON: None FINDINGS: Surgical clips are present in the right and left upper quadrant. Gas and stool is noted in the colon. There are no air-fluid levels. There are calcifications overlying the left renal shadow with the largest measuring 0.4 cm. There is no acute bony abnormality. RAD/Abdomen Single View IMPRESSION: Left nephrolithiasis. Nonobstructive bowel gas pattern. Reading Location: [facility]
[2025-02-23 06:43] VITALS: BP 131/86; PULSE 105; RESP 16; TEMP 36.2; O2SAT 97; BMI 29.5
[2025-02-23] MEDS: Lactated Ringers 1,000 ML 15 ML IV (06:47)
--- NOTE | 2025-02-23 06:57 | PCM.PRE.AN2 ---
ASA Classification* ASA Classification ASA Classification: 3 (Tachycardic; ALLERGIC TO DILAUDID, Smoker, COPD. Will give breathing treatment pre-op duoneb. Crowns in front two teeth that may be loose ) Assessment & Plan Anesthesia* Anesthesia Assessment Anesthesia Assessment: Discussed sedation and/or anesthesia options, risks, benefits, and alternatives with patient/parents/legal guardian/POA. Questions invited. The patient/parents/legal guardian/POA seems to understand and agrees to proceed with anesthesia plan. Reviewed the physical assessment, medical history, allergy history and patient home medications list prior to surgery/procedure/anesthetic and documented any changes. Performed airway and anesthesia risk assessments. 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 When Was Last Pacemaker Check QUESTION #4 FULL TEXT: You/Your Family Experience fever (hyperthermia) with Anesthesia Last Oral Intake Last Oral intake: Last Oral Intake NPO since 01:00 02/23/25 06:43 Meds taken in AM with sips of No 02/23/25 06:43 water? Meds patient instructed to take am of surgery PONV PONV - dispenser operator: PONV - dispenser operator Female Yes 02/18/25 14:08 HX of Motion Sickness No 02/18/25 14:08 HX of N/V After Surgery No 02/18/25 14:08 Non-Smoker No 02/18/25 14:08 Duration of Surgery greater No 02/18/25 14:08 than 60 minutes Number of Risk Factors 1 02/18/25 14:08 PONV Score Low Risk 02/18/25 14:08 Height & Weight Height & Weight: Anesthesia: Height & Weight Height 5 ft 4 in 02/23/25 06:43 Weight: 78 kg 02/23/25 06:43 Body Mass Index (BMI) 29.5 02/23/25 06:43 Respiratory Assessment Respiratory Assessment - dispenser operator: Respiratory Tract Infection Hx - dispenser operator Hx Respiratory Tract Infection No 02/18/25 14:08 STOP Sleep Apnea STOP Sleep Apnea - dispenser operator: STOP Sleep Apnea - dispenser operator Hx Hypertension No 02/18/25 14:08 Hx Sleep Apnea No 02/18/25 14:08 CPAP BIPAP Do you snore loudly (louder No 02/18/25 14:08 than talking or can be heard Do you often feel tired/ No 02/18/25 14:08 fatigued/ sleepy during daytime? Has anyone observed you stop No 02/18/25 14:08 breathing during sleep? STOP Results Negative 02/18/25 14:08 QUESTION #5 FULL TEXT : Do you snore loudly (louder than talking or can be heard through closed doors)? 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 Specify any problems Hx of Preganancy in last 3 N/A 02/18/25 14:08 Months Nurse Filling Out Transfusion NBUCHER 02/18/25 14:08 & Questions: Date: 02/18/25 02/18/25 14:08 Time: 14:12 02/18/25 14:08 Patient unable to answer at this time (ie. confused, unrespo /Reproduction History /Reproductive History - dispenser operator: /Reproductive Hx- dispenser operator Hx Now No 02/18/25 14:08 Gestational Age (in weeks): EDC: Hx Hx Para Hx Section SAB No 02/18/25 14:08 Active Medications Active Medications: Current Medications Generic Name Dose Route Start Last Admin Trade Name Freq PRN Reason Stop Dose Admin Cefazolin Sodium 2 gm/ Sodium 110 mls @ 200 mls/hr 02/23/25 07:30 Chloride IV 02/23/25 08:02 INTRAOP ONE Lactated Ringer's 1,000 mls @ 15 mls/hr 02/23/25 06:15 02/23/25 06:47 IV 15 mls/hr .Q48H SOFIA Administration PFSH Medical History (Updated 02/18/25 @ 14:22 by Anahi Napier) Restless legs Wears glasses Fatty liver History of renal disease Arthritis Non-Hodgkin lymphoma History of ulceration Diverticulosis History of edema Smoker Shortness of breath on exertion Chronic cough History of echocardiogram History of chemotherapy Cancer History of kidney stones Home Medications ?Medication ?Instructions ?Recorded ?Last Taken ?Type cephalexin 500 mg capsule 500 mg PO BID 02/18/25 02/22/25 History ketorolac 10 mg tablet 10 mg PO Q8H PRN pain 02/18/25 Unknown History ondansetron 4 mg disintegrating 4 mg PO Q8H 02/18/25 Unknown History tablet oxycodone-acetaminophen 5 mg-300 1 tab PO DAILY PRN pain 02/18/25 Unknown History mg tablet tamsulosin 0.4 mg capsule (Flomax) 0.4 mg PO DAILY 02/18/25 02/22/25 History Allergy/AdvReac Type Severity Reaction Status Date / Time gabapentin (From Neurontin) AdvReac Severe Other Verified 02/23/25 06:41 hydromorphone (From Dilaudid) AdvReac Severe HEADACHE Verified 02/23/25 06:41 Surgical History (Updated 02/18/25 @ 14:22 by Anahi Napier) History of extracorporeal shockwave lithotripsy (ESWL) History of foot surgery History of splenectomy History of D&C History of cholecystectomy Social History Smoking Status: Current every day smoker tobacco type: cigarettes Review of Systems (Anesthesia) ROS Narrative System reviewed and no additional complaints, except as documented. Physical Exam Const alert, oriented x3 and average body habitus Resp normal respiratory effort, normal air movement and clear to auscultation bilaterally Cardio regular rate, regular rhythm, no murmurs and diaphoretic
[2025-02-23 06:59] VITALS: BP 131/86; PULSE 105; RESP 16; TEMP 36.2; O2SAT 97
--- NOTE | 2025-02-23 07:20 | CT_ITS ---
PROCEDURE: ABDOMEN/PELVIS WITHOUT CONT 02/23/2025 REASON FOR EXAM: KIDNEY STONE History of prior non-Hodgkin's lymphoma. TECHNIQUE: Procedure Code: CTABDPEL Modality: CT Procedure: ABDOMEN/PELVIS WITHOUT CONT Noncontrast technique limits evaluation of the abdominal and pelvic viscera. Coronal and Sagittal reconstruction series were provided. One or more dose reduction techniques were used (e.g., Automated exposure control, adjustment of the mA and/or kV according to patient size, use of iterative reconstruction technique). RADIATION DOSE SUMMARY: CTDlvol: 10.94 mGy DLP: 568.32 mGycm COMPARISON: None FINDINGS: Lung bases: The lung bases are clear. Liver: Normal size. No obvious mass. Gallbladder: Surgically absent. Spleen: Normal size. Pancreas: Normal size. No surrounding inflammation. Adrenals: Unremarkable Kidneys: There is a 5.1 cm by 3.7 cm by 4.1 cm heterogeneous mass arising from the anterior mid and lower pole of the left kidney. A neoplastic process should be ruled out. There are several nonobstructive calculi in the lower pole calyx of the left kidney. The largest measures 6.5 mm. No evidence of hydronephrosis. Bladder: Unremarkable Reproductive Organs: Unremarkable Bowel: Colonic diverticulosis without diverticulitis. Appendix: Unremarkable Lymph nodes: Unremarkable. Vasculature: Mild diffuse atherosclerotic calcifications are noted. Peritoneum / Retroperitoneum: Unremarkable Bones: Mild degenerative changes of the lumbar spine. CT/Abdomen/Pelvis without Cont IMPRESSION: 5.1 cm by 3.7 cm x 4.1 cm heterogeneous mass arising from the anterior mid and lower pole of the left kidney. Neoplastic process should be ruled out. Several nonobstructive calculi seen in the lower pole calyx of the left kidney. The largest measures 6.5 mm. Reading Location: [facility]
--- NOTE | 2025-02-23 07:48 | SUR.PREOP ---
surgery canceled- ct showed no stone- dr love talked with pt
--- OUTSIDE RECORDS SUMMARY | 2025-04-27 04:56 | XMS RPT_ITS ---
Author Name Auto Generated Organization [facility] Care Team Providers Care Chief Solution Architect Name Role Phone ZENAIDA FERNANDEZ Attending Physician Unavailable GALUI LEELEE Attending Physician Unavailable GAEKE, LEELEE Unavailable Unavailable GAEKE, LEELEE Unavailable Unavailable GAEKE, LEELEE Unavailable Unavailable GAEKE, LEELEE Unavailable Unavailable GENERIC PROVIDER, NO ASSIGNED PCP Primary Care P hysician Unavailable GAEKE, LEELEE Unavailable Unavailable GENERIC PROVIDER, NO ASSIGNED PCP Primary Care P hysician Unavailable GAEKE, LEELEE Attending Physician Unavailable GAEKE, LEELEE Unavailable Unavailable GENERIC PROVIDER, NO ASSIGNED PCP Primary Care P hysician Unavailable DARION SYLVESTER Attending Physician Unavailable DARION SYLVESTER Primary Care Physician Unavailab le PROBLEMS DATE TYPE CONDITION / CODE ATTENDING STATUS [facility] 04/27/2025 Admitting diagnosis Diffuse large B-cell lymphoma, unspecified site / C83.30(ICD-10) DARION SYLVESTER [facility] 04/27/2025 Admitting diagnosis Disorder of thyroid, unspecified / E07.9(ICD-10) DARION SYLVESTER [facility] 02/28/2025 Admitting Diagnosis Diffuse large B-cell lymphoma, unspecified site (Multi) / C83.30(ICD-10) HARITHA QUARLES E Active [facility] 02/13/2025 Admitting Diagnosis Calculus of ureter / N20.1(ICD-10) ZENAIDA FERNANDEZ [facility] 02/13/2025 Admitting Diagnosis Acute cystitis with hematuria / N30.01(ICD-10) ZENAIDA FERNANDEZ [facility] 02/13/2025 Admitting Diagnosis Other specified disorders of kidney and ureter / N28.89(ICD-10) ZENAIDA FERNANDEZ [facility] RESULTS PROGRESS Observed: 04/29/2025 10:14 PM Status: COMPLETED Source: [facility] Please call patient and let her know her thyroid blood test result is normal. AUTHENTICATED BY DARION SYLVESTER, ON 04/29/2025 22:14:17 TSH W/REFLEX TO FT4 Collected: 04/27/19 26 11:11 AM Status: F Source: [facility] Order Comment: FASTING:NO FASTING: NO TYPE CODE TESTS RESULT OUT OF RANGE REFERENCE UNITS LAB [id number] TSH W/REFLEX TO FT4 2.43 Normal 0.40-4.50 mIU/L Performed By: [facility] [address], [address] [place] [address] [employer]obile Designer: Candido Lawrence MD PROGRESS Observed: 04/27/2025 10:00 AM Status: COMPLETED Source: [facility] Assessment/Plan: Thyroid lesion Left thyroid lesion which is moderately hypermetabolic on PET scan 03/18/2025, which was completed due to renal mass. Discussed blood testing for thyroid function and completing the recommended ultrasound of her thyroid to evaluate this lesion. Patient is agreeable to these measures. - TSH and thyroid ultrasound were ordered today. Left renal mass Following with oncology at . Mass found incidentally on CT for kidney stone in 01/2025, PET scan completed 03/18/2025 revealed it is hypermetabolic, suspicious for renal cell carcinoma. Patient has declined biopsy to confirm her diagnosis, and states she would not want any treatment. She does have remote history of B-cell lymphoma s/p chemotherapy. She is not experiencing any symptoms related to the renal mass at this time. She is requesting referral to palliative care. This referral was placed today. 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 Physical therapy, aquatic therapy, and craniosacral therapy have not been helpful. She is opposed to spinal injections or nerve ablation. Not improved by muscle relaxant, TCA, gabapentin, pregabalin in the past. Tylenol helps intermittently, but currently drinking about 3 beers weekly for treatment of her pain. Offered OMT, and she will consider this. Encouraged to call and schedule at her convenience. Subjective: Danitza Cline is a 69 y.o. female Chief Complaint Patient presents with [facility] Care Recent DX renal Cell Carcinoma Danitza Cline is a 69 y.o. presenting to [facility]. Previous PCP: She hasn't had a family medicine doctor in 13 yrs. PMH: Kidney mass, B-cell lymphoma, neuropathy, history of ureterolithiasis. Kidney mass Mass was found incidentally on CT for kidney stone in ED 01/2025. She follows with oncology at . The characteristics of the mass make it most likely renal cell carcinoma. She did complete a PET scan which showed Mildly hypermetabolic heterogenous left renal mass suspicious for primary renal neoplasm. however, patient has declined biopsy to confirm her diagnosis. She doesn't want any treatment. She has a remote history of B-cell lymphoma, s/p chemotherapy. PET scan also revealed a single Moderately hypermetabolic subtle hypodense lesion in the left thyroid lobe, which is recommended to be evaluated with dedicated ultrasound. She is more concerned about her pelvic floor pain. Pelvic floor/perianal pain/pudendal neuralgia She reports an injury in 1998, when she fell onto her left ischial tuberosity on a tree root. She has seen a shale processing technician, urogynecologist, colorectal surgeon, general surgeon. She has had physical therapy, aquatic therapy, and craniosacral therapy. She has not tried spinal injections or nerve ablation, and is not interested in pursuing these options. Pain is worse with sitting up for prolonged period of time. Tylenol helps intermittently. Several times she mentions that she used to be on pain medication it was the only thing that really helped. She drinks beer, about 3 per week, which helps. She specifically says she doesn't take tylenol with beer. She has tried muscle relaxant, flexeril, which didn't help much. Menses: NA Pap smear: Declines Mammogram: Declines Colonoscopy: Declines DEXA: Patient is not interested in pursuing any further cancer screenings or testing for her kidney mass. She is requesting a referral to palliative care. I did discuss with her that she may not have a qualifying diagnosis for palliative care. She has not had a biopsy to confirm her kidney mass is cancerous, and she is also has no symptoms related to the mass. The following portions of the patient's history were reviewed and updated as appropriate: allergies, current medications, past family history, past medical history, past social history, past surgical history and problem list. Review of Systems Objective: PACU Vitals 04/27/25 1008 BP: 133/79 Pulse: Resp: Temp: SpO2: PainSc: PainLoc: Physical Exam Constitutional: Appearance: Normal appearance. She is not ill-appearing, toxic-appearing or diaphoretic. HENT: Head: Normocephalic and atraumatic. Eyes: General: No scleral icterus. Neck: Thyroid: No thyroid mass, thyromegaly or thyroid tenderness. Cardiovascular: Rate and Rhythm: Normal rate and regular rhythm. Pulmonary: Effort: Pulmonary effort is normal. No respiratory distress. Breath sounds: Normal breath sounds. Musculoskeletal: Cervical back: Neck supple. No tenderness. Lymphadenopathy: Cervical: No cervical adenopathy. Skin: General: Skin is warm and dry. Coloration: Skin is not jaundiced or pale. Neurological: General: No focal deficit present. Mental Status: She is alert. For any new medications prescribed today, patient was educated about indications for the medication, how to take the medication and potential side effects of the medications. My ongoing relationship with Danitza Eddy Son requires continued responsibility and cognitive effort of being the focal point for all services related to chronic condition(s). *Total encounter time today was > 60 minutes. This time includes review of past tests/notes, obtaining patient history, performing a medically necessary exam, counseling the patient, ordering tests/procedures/medications, documentation, and care coordination. Darion Sylvester, DO 04/27/2025 10:11 AM PHQ-9 Review Little interest or pleasure in doing things 0 Feeling down, depressed, or hopeless 0 PHQ-2 Total Score 0 AUTHENTICATED BY DARION SYLVETSER, ON 05/06/2025 15:43:[address] SKULL BASE TO MID THIGH Observ ed: 03/18/2025 7:05 AM Status: F Source: [facility] Interpreted By: Fathala, Bebe Shultz ed STUDY: NM PET CT SKULL BASE TO MID THIGH; 03/18/2025 8:55 am INDICATION: Signs/Symptoms:Non Hodgkins Lymphoma follow up weight loss and new mass on kidney. 69-year-old female presents for follow-up of enlarging left renal mass. History of non-Hodgkin's lymphoma status post prior therapy with negative CT scans in 2022. ,C83.30 Diffuse large B-cell lymphoma, unspecified site (Multi) COMPARISON: CT chest 03/11/2025. CT abdomen pelvis 02/13/2025, 12/29/2012. ACCESSION NUMBER(S): [id number] ORDERING CLINICIAN: HARITHA QUARLES TECHNIQUE: DIVISION OF NUCLEAR MEDICINE POSITRON EMISSION TOMOGRAPHY (PET-CT) The patient received an intravenous dose of 11.2 mCi of Fluorine-18 fluorodeoxyglucose (FDG). Positron emission tomographic (PET) images from skull base to mid-thigh were then acquired after a one hour delay. Also acquired was a contemporaneous low dose noncontrast CT scan performed for attenuation correction of PET images and anatomic localization. The PET and CT images were digitally fused for display. All images were acquired on a combined PET-CT scanner unit. Some areas of FDG accumulation may be described in standardized uptake value (SUV) units. CODING: Initial Treatment Strategy (PI) CALIBRATION: Dose Nufotrgoo-pk-Waez Interval (mins): 60 Mediastinal bloodpool SUV (normal 1.5-2.5): 2.7 Blood glucose: 112 mg/dL FINDINGS: HEAD/NECK: No evidence of focal FDG avid lesion in the partially visualized brain parenchyma, noting that evaluation is limited because of the expected physiologic diffuse FDG uptake in the brain. No focal hypermetabolic soft tissue lesion is seen in the neck. No hypermetabolic cervical lymphadenopathy is present. A moderately hypermetabolic focus is noted in the anteromedial aspect of the left thyroid lobe with associated subtle hypodense lesion, max SUV 4.5. CHEST: No focal hypermetabolic lesion is seen in the lung parenchyma. No evidence of hypermetabolic mediastinal, hilar or axillary lymphadenopathy. ABDOMEN AND PELVIS: Grossly similar size of the heterogenous renal mass arising from the inferior pole of the left kidney compared to CT 03/11/2025 with associated mild hypermetabolic activity predominantly peripherally, max SUV of 3.6. No evidence of hypermetabolic lymphadenopathy. The adrenal glands are within normal limits. Physiologic radiotracer uptake is present in the liver and spleen with excretion into the bowel loops and the genitourinary tract. 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 Multiple faintly FDG-avid soft tissue nodules are seen in the left upper quadrant, stable compared to CTs dating back to 12/29/2012, favored to represent splenules. Status post cholecystectomy. Proximal right ureter calculus with associated hydroureteronephrosis has resolved compared to 02/13/2025. MUSCULOSKELETAL: There is no focal hypermetabolic lesion to suggest osseous metastasis. IMPRESSION: 1. Mildly hypermetabolic heterogenous left renal mass suspicious for primary renal neoplasm. 2. Moderately hypermetabolic subtle hypodense lesion in the left thyroid lobe. Further evaluation with dedicated thyroid ultrasound is recommended. 3. No significant FDG avid lymphadenopathy. I personally reviewed the images/study and I agree with the findings as stated by Marleni Bo MD. This study was interpreted at [place], [place]. MACRO: None Signed by: Nimesh Arrieta 03/18/2025 9:55 AM Dictation workstation: [id number] CT CHEST W IV CONTRAST Observed: 025 6:42 AM Status: F Source: [facility] Interpreted By: Johnie Chong, and Jacinto Neal STUDY: CT CHEST W IV CONTRAST; 03/11/2025 7:08 am INDICATION: Signs/Symptoms:Follow up NHL and new kidney mass. COMPARISON: CT ABDOMEN PELVIS WO IV CONTRAST 02/13/2025, CT ANGIO CHEST FOR PE 06/01/2022 CT abdomen/pelvis 06/21/2019, CT abdomen/pelvis 12/29/2012 ACCESSION NUMBER(S): [id number] ORDERING CLINICIAN: HARITHA QUARLES TECHNIQUE: Helical data acquisition of the chest was obtained following intravenous administration of 70 mL Omnipaque 350. Images were reformatted in axial, coronal, and sagittal planes. FINDINGS: LUNGS AND AIRWAYS: The trachea and central airways are patent. There is no endobronchial lesion, although there is small amount of nonobstructive mucous material seen within trachea. Yxpv-dp-yirddodk upper lung predominant centrilobular/paraseptal emphysematous changes. The bilateral lungs are clear without evidence of focal consolidation, pleural effusion, or pneumothorax. 0.3 cm left lower lobe noncalcified pulmonary nodule is stable since at least 12/29/2012, likely benign (series 9 image 262). 0.2 cm left lower lobe ground-glass pulmonary nodule is stable since at least 06/21/2019, likely benign (series 9 image 135). 0.2 cm right upper lobe noncalcified pulmonary nodule is stable since at least 06/01/2022 (series 9, image 137). Right upper lobe 0.2 cm noncalcified pulmonary nodule is stable since at least 06/01/2022 (series 9, image 94). Right apical 0.2 cm noncalcified pulmonary nodule is stable since at least 06/01/2022 (series 9, image 68). MEDIASTINUM AND ROSA, LOWER NECK AND AXILLA: The visualized thyroid gland is within normal limits. Prominent right lower paratracheal lymph node measures up to 0.9 cm in short axis, increased in size from exam 06/01/2022 (series 5, image 144). Esophagus appears within normal limits as seen. HEART AND VESSELS: The thoracic aorta normal in course and caliber.There are mild scattered atherosclerosis present, including calcified and noncalcified plaques.Although, the study is not tailored for evaluation of aorta, there is no definite evidence of acute aortic pathology. Main pulmonary artery and its branches are normal in caliber. No coronary artery calcifications are seen. Please note, the study is not optimized for evaluation of coronary arteries. The cardiac chambers are not enlarged. There is no pericardial effusion seen. UPPER ABDOMEN: Status post splenectomy with multiple enhancing soft tissue deposits favored to represent hypertrophied splenules, stable since at least 06/01/2022. Redemonstration of large, heterogeneous left lower pole renal mass, unchanged in size compared to exam 02/13/2025 measuring 6.8 x 4.8 x 4.4 cm (series 5, image 361 and series 6, image 69). Left lower pole nonobstructive renal calculi measure up to 0.6 cm (series 5, image 374). Additional bilateral renal hypodensities which are too small to characterize, but favored to represent simple renal cysts. No hydronephrosis. No renal vascular infiltration identified. Previously noted right hydroureter has resolved. Previously noted right ureteral stone not imaged/visualized. Mildly enlarged portacaval lymph node measures up to 1.0 cm, similar to exam 02/13/2025 (series 5, image 328). Mildly enlarged portacaval lymph node measures up to 1.0 cm, similar to exam 02/13/2025 (series 5, image 349). Status post cholecystectomy. CHEST WALL AND OSSEOUS STRUCTURES: Chest wall is within normal limits. No acute osseous pathology.There are no suspicious osseous lesions.Mild multilevel degenerative changes within visualized spine. IMPRESSION: 1. No evidence of acute pathology. 2. Redemonstration of large left renal mass consistent with renal cell carcinoma until proven otherwise. Mildly enlarged portacaval lymph nodes, nonspecific but concerning for deidra metastasis. 3. Status post splenectomy with multiple enhancing soft tissue deposits in the postsurgical bed favored to represent hypertrophied splenules as opposed to malignant deposits. Attention on future imaging recommended. 4. Multiple noncalcified pulmonary micro nodules which are visualized/stable on prior exams as described above. Favored benign, although given history, continued attention on future exams recommended. I personally reviewed the images/study and I agree with the findings as stated by Dr. Ángel Casey. Signed by: Luiz Chong 03/12/2025 6:23 AM Dictation workstation: [id number] MR BRAIN W AND WO IV CONTRAST Observed: 03/11/2025 6:40 AM Status: F Source: [facility] Interpreted By: Marlon Moser rt, STUDY: MR BRAIN W AND WO IV CONTRAST; 03/11/2025 7:41 am INDICATION: Signs/Symptoms:New renal mass with headaches.. ,C83.30 Diffuse large B-cell lymphoma, unspecified site (Multi) COMPARISON: None. ACCESSION NUMBER(S): [id number] ORDERING CLINICIAN: HARITHA QUARLES TECHNIQUE: Standard multiplanar multisequence MR imaging was performed through the brain prior to and following administration of 14 ML Dotarem intravenous contrast. FINDINGS: Parenchyma: There is no diffusion restriction abnormality to suggest acute infarct. No evidence of recent hemorrhage. Suspected dystrophic mineralization versus chronic microhemorrhage within the right frontal lobe superior rectus gyrus (series 7, image 31). There is no mass effect or midline shift. No abnormal parenchymal or leptomeningeal enhancement. Incidental small left cerebellar developmental venous anomaly. There is trace nonspecific T2/FLAIR white matter hyperintensity. CSF Spaces: The ventricles, sulci and basal cisterns are within normal limits for age. Basilar cisterns are patent. Extra-axial spaces: No extra-axial fluid collection. Intracranial Flow Voids: Patent appearing. Paranasal Sinuses: Visualized paranasal sinuses are well aerated with mild mucosal thickening of the ethmoids bilaterally and the right sphenoid sinus. Mastoids: Small amount of dependent fluid within the left mastoid with trace involvement on the right. Orbits: Normal. Calvarium: No suspicious osseous marrow signal. IMPRESSION: Essentially normal MR appearance of the brain for age. No acute infarct, recent hemorrhage, or intracranial mass effect. No abnormal intracranial enhancement to indicate metastatic disease. MACRO: None Signed by: Cleestino Moser 03/13/2025 2:05 PM Dictation workstation: [id number] URINALYSIS COMPLETE W REFLEX CULTURE PANEL Collected: 02/13/2025 11:06 PM Status: F Source: [facility] Order Comment: OVER is repor christopher when the result is greater than the clinically reportable range. TYPE CODE TESTS RESULT OUT OF RANGE REFERENCE UNITS LAB 5778-6(LOINC) Observation Light-Quincy Normal L ight-Yellow , Yellow, Dark-Yellow LAB 5767-9(LOINC) Observation Ex.Turbid Normal Clear LAB 96625-9(LOINC) Observation 1.028 1.005-1.035 LAB 41524-4(LOINC) pH 5.5 5.0, 5.5, 6.0, 6.5, 7.0, 7.5, 8.0 LAB 43184-9(LOINC) Protein 100 (2+) Abnormal NEGAT HARRIS, 10 (TRACE), 20 (TRACE) mg/dL LAB 20720-9(LOINC) Glucose Normal Normal mg/dL LAB 47438-8(LOINC) Erythrocytes OVER (3+) Abnormal NEGATIVE mg/dL LAB 90181-0(LOINC) Ketones TRACE Abnormal NEGATIVE mg/dL LAB 55571-1(LOINC) Bilirubin NEGATIVE NEGATIVE mg/dL LAB 81194-8(LOINC) Urobilinogen Normal Normal mg/d L LAB 63750-1(LOINC) Nitrite NEGATIVE NEGATIVE LAB 89370-0(LOINC) Leukocyte esterase 25 Merlin/uL Abnormal NEGATIVE Performed By: YOSHI SANTIAGO ([id number]) [facility] ([facility]) [address] [place] [address] URINALYSIS MICROSCOPIC PANEL Collected: 02/13/2025 11:06 PM Status: F Source: [facility] TYPE CODE TESTS RESULT OUT OF RANGE REFERENCE UNITS LAB 72319-7(LOINC ) Leukocytes 11-20 Abnormal 1-5, NONE /HPF LAB 97733-4(LOINC ) Erythrocytes >20 Abnormal NONE, 1-2, 3-5 /HPF LAB 41588-9(LOINC ) Epithelial cells.squamous 1-9 (SPARSE) Reference range not established. /HPF LAB 65575-8(LOINC ) Yeast.budding PRESENT Abnormal NONE /HPF LAB 36975-0(LOINC ) Mucus 2+ Reference range not established. /LPF LAB 99442-3(LOINC ) Calcium oxalate crystals 1+ NONE, 1+ /HPF Performed By: YOSHI SANTIAGO ([id number]) [facility] ([facility]) [address] [place] [address] BACTERIA Observed: 02/13/2025 11:06 PM Status: F Source: [facility] Test: Urine Culture Specimen Source: Clean Catch/Voided Specimen Type: Urine Specimen Date: 02/13/20252305 Result Date: 02/15/2025743 Result Status: Final result Abnormal: No Resulting Lab: [facility] [address] [place] [address] CULTURE No growth Performed By: MARION Eddy ([id number]) [facility] ([facility]) [address] [place] [address] COMPLETE BLOOD COUNT W AUTO DIFFERENTIAL PANEL Collected: 02/13/2025 9:28 PM Status: F Source: [facility] TYPE CODE TESTS RESULT OUT OF RANGE REFERENCE UNITS LAB 6690-2(LOINC) Leukocytes 18.0 High 4.4-11.3 x10*3/ uL LAB 35646-4(LOINC ) Erythrocytes.nu cleated/Leukocy bambi 0.0 0.0-0.0 /100 WBCs LAB 789-8(LOINC) Erythrocytes 4.74 4.00-5.20 x10* 6/uL LAB 718-7(LOINC) Hemoglobin 14.4 12.0-16.0 g/dL LAB 4544-3(LOINC) Erythrocyte/Blo od 43.0 36.0-46.0 % LAB 787-2(LOINC) Observation 91 80-100 fL LAB 785-6(LOINC) Hemoglobin 30.4 26.0-34.0 pg LAB 786-4(LOINC) Hemoglobin 33.5 32.0-36.0 g/dL LAB 788-0(LOINC) Observation 13.4 11.5-14.5 % LAB 777-3(LOINC) Platelets 407 150-450 x10*3/uL LAB 770-8(LOINC) Neutrophils/Merlin kocytes 41.5 40.0-80.0 % LAB 56786-6(LOINC ) Granulocytes.im mature/Leukocyt es 0.3 0.0-0.9 % Result Comment: Immature Gra nulocyte Count (IG) includes promyelocytes, myelocytes and metamyelocytes but does not include bands. Percent differential counts (%) should be interpreted in the context of the absolute cell counts (cells/UL). LAB 736-9(LOINC) Lymphocytes/Merlin kocytes 48.4 13.0-44.0 % LAB 5905-5(LOINC) Monocytes/Leuko cytes 7.5 2.0-10.0 % LAB 713-8(LOINC) Eosinophils/Merlin kocytes 1.9 0.0-6.0 % LAB 706-2(LOINC) Basophils/Leuko cytes 0.4 0.0-2.0 % LAB 751-8(LOINC) Neutrophils 7.46 1.20-7.70 x10*3 /uL Result Comment: Percent diff erential counts (%) should be interpreted in the context of the absolute cell counts (cells/uL). LAB 50567-1(LOINC ) Granulocytes.im mature 0.05 0.00-0.70 x10*3/uL LAB 731-0(LOINC) Lymphocytes 8.70 High 1.20-4.80 x10*3 /uL LAB 742-7(LOINC) Monocytes 1.34 High 0.10-1.00 x10*3/u L LAB 711-2(LOINC) Eosinophils 0.34 0.00-0.70 x10*3 /uL LAB 704-7(LOINC) Basophils 0.08 0.00-0.10 x10*3/u L Performed By: YOSHI SANTIAGO ([id number] [id number]) [facility] ([facility]) [address] [place] [address] COMPREHENSIVE METABOLIC 2000 PANEL Collected: 02/13/2025 9:28 PM Status: F Source: [facility] TYPE CODE TESTS RESULT OUT OF RANGE REFERENCE UNITS LAB 2345-7(LOINC) Glucose 146 High 74-99 mg/dL LAB 2951-2(LOINC) Sodium 139 136-145 mmol/L LAB 2823-3(LOINC) Potassium 3.8 3.5-5.3 mmol/L LAB 2075-0(LOINC) Chloride 103 98-107 mmol/L LAB 2027-9(LOINC) Carbon dioxide 27 21-32 mmo l/L LAB 17218-7(LOINC ) Anion gap 13 10-20 mmol/L LAB 3094-0(LOINC) Urea nitrogen 15 6-23 mg/d L LAB 2160-0(LOINC) Creatinine 0.91 0.50-1.05 mg/dL LAB 24790-8(LOINC ) Glomerular filtration rate 69 >60 mL/min/ 1.73m*2 Result Comment: Calculations of estimated GFR are performed using the 2020 CKD- EPI Study Refit equation without the race variable for the IDMS-Traceable creatinine methods. https://jasn.asnjournals.org/content//ASN.8892624012 LAB 75249-7(LOINC ) Calcium 9.8 8.6-10.3 mg/dL LAB 34660-5(LOINC ) Albumin 4.3 3.4-5.0 g/dL LAB 6768-6(LOINC) Alkaline phosphatase 64 33-136 U/L LAB 2885-2(LOINC) Protein 6.9 6.4-8.2 g/dL LAB 04607-4(LOINC ) Aspartate aminotransferase 13 9-39 U/L LAB 1975-2(LOINC) Bilirubin 0.5 0.0-1.2 mg/dL LAB 1743-4(LOINC) Alanine aminotransferase 11 7-45 U/L Result Comment: Patients sd ated with Sulfasalazine may generate falsely decreased results for ALT. Performed By: YOSHI SANTIAGO ([id number] [id number]) [facility] ([facility]) [address] [place] [address] CT ABDOMEN PELVIS WO IV CONTRAST Observed: 02/13/2025 8:59 PM Status: F Source: [facility] Interpreted By: Kwabena Sun, STUDY: CT ABDOMEN PELVIS WO IV CONTRAST; 02/13/2025 9:41 pm INDICATION: Signs/Symptoms:Right lower flank and lower quadrant pain. COMPARISON: CT abdomen and pelvis 05/17/2022. CT angiogram chest 06/01/2022. ACCESSION NUMBER(S): [id number] ORDERING CLINICIAN: ZENAIDA FERNANDEZ TECHNIQUE: CT of the abdomen and pelvis [...] bladder is decompressed. The uterus is present. PERITONEUM/RETROPERITONEUM/LYMPH NODES: No free fluid or free air. [...] by: Helene 02/14/2025 1:28 AM Dictation workstation: [id number] ALLERGIES DATE TYPE / CODE NAME / CODE REACTION SEVERITY SOURCE 04/12/2024 DRUG INGREDI/116542003( SNOMED CT) HYDROMORPHONE [facility]atory 04/12/2024 DRUG INGREDI/232555632( SNOMED CT) HYDROGARPHONE [facility] 01/05/2018 DRUG INGREDI/755793723( SNOMED CT) GABAPENTIN [facility] 01/05/2018 DRUG INGREDI/489226751( SNOMED CT) GABAPENTIN [facility] 07/02/2005 DRUG INGREDI/926798140( SNOMED CT) MEPERIDINE [facility] ENCOUNTERS ADMIT/DISCHARGE ACCOUNT NUMBER ADMITTING ENCOUNTER CLASS LOCATION SOURCE 04/27/2025/ 6 [id number] Ambulatory Building:[facility] 03/23/2025/ 5 [id number] Ambulatory Building:[address] 03/18/2025/ 5 [id number] Ambulatory Building:[facility] 03/18/2025/ 5 [id number] Ambulatory Building:[facility] 03/11/2025/ 5 [id number] Ambulatory Building:[facility] 03/11/2025/ 5 [id number] Ambulatory Building:[facility] 02/28/2025/ 5 [id number] Ambulatory Building:[address] 02/13/2025/ [id number] Emergency Building:[facility] EDRoom: [id number] : [id number] [facility] PAYERS ENCOUNTER GUARANTOR PAYER SUBSCRIBER SOURCE 04/27/2025 DANITZA Surjit PATINOB: [place] [address]Jyz: () Primary Insurance:MEDICAR E PART A & BPolicy Number: [id number] harris Date:7412-05-72SY S J15 PART [address] [place] [address]MV: DANITZA PATINOB: [id number] [place], [place] [address]Oyh: () [facility] 03/23/2025 DANITZA PATINOB: [place] [address]Lrz: () Primary Insurance:MEDICAR EPolicy Number: [id number] harris Date:2008-06-19 DANITZAEILEEN PATINOB: [id number] [place] [address]Mne: () [facility] 03/18/2025 DANITZA PATINOB: [place] [address]Gmk: () Primary Insurance:MEDICAR EPolicy Number: [id number] harris Date:2008-06-19 DANITZA PATINOB: [id number] [place] [address]Yec: () [facility] 03/18/2025 DANITZA CLINEDOB: [place] [address]Hnj: () Primary Insurance:MEDICAR EPolicy Number: [id number] harris Date:2008-06-19 DANITZA Eddy SHOWALTERDOB: [id number] [place] [address]Tht: () [facility] 03/11/2025 DANITZA Eddy SHOWALTERDOB: [place] [address]Jqx: () Primary Insurance:MEDICAR EPolicy Number: [id number] harris Date:2008-06-19 DANITZA Eddy SHOWALTERDOB: [id number] [place] [address]Qwp: () [facility] 03/11/2025 DANITZA Eddy SHOWALTERDOB: [place] [address]Jmd: () Primary Insurance:MEDICAR EPolicy Number: [id number] harris Date:2008-06-19 DANITZA Eddy SHOWALTERDOB: [id number] [place] [address]Ety: () [facility] 02/28/2025 DANITZA Eddy SHOWALTERDOB: [place] [address]Sdr: () Primary Insurance:MEDICAR EPolicy Number: [id number] harris Date:2008-06-19 DANITZA Eddy SHOWALTERDOB: [id number] [place] [address]Epi: () [facility] 02/13/2025 DANITZA Eddy SHOWALTERDOB: [place] [address]Ohu: () Primary Insurance:MEDICAR EPolicy Number: [id number] harris Date:2008-06-19 DANITZA L SHOWALTERDOB: [id number] [place] [address]Jcs: () [facility]
--- OUTSIDE RECORDS SUMMARY | 2025-04-27 04:56 | XMS RPT_ITS ---
Author Name Auto Generated Organization OHIP Care Team Providers Care Fleet Administrative Assistant Name Role Phone DARION SYLVESTER Attending Physician Unavailable DARION SYLVESTER Primary Care Physician Unavailab ZENAIDA Elise Attending Physician Unavailable GAEKE, LEELEE Attending Physician Unavailable GAEKE, [...] ASSIGNED PCP Primary Care P hysician Unavailable PROBLEMS DATE TYPE CONDITION / CODE ATTENDING STATUS [facility] 04/27/2025 Admitting diagnosis Other specified disorders of kidney and ureter / N28.89(ICD-10) DARION SYLVESTER Active [facility] 04/27/2025 Admitting diagnosis Diffuse large B-cell lymphoma, unspecified site / C83.30(ICD-10) DARION SYLVESTER Active [facility] 04/27/2025 Admitting diagnosis Disorder of thyroid, unspecified / E07.9(ICD-10) DARION SYLVESTER Active [facility] 02/28/2025 Admitting Diagnosis Diffuse large B-cell lymphoma, unspecified site (Multi) / C83.30(ICD-10) HARITHA QUARLES [facility] 02/13/2025 Admitting Diagnosis Calculus of ureter / N20.1(ICD-10) ZENAIDA FERNANDEZ [facility] 02/13/2025 Admitting Diagnosis Acute cystitis with hematuria / N30.01(ICD-10) ZENAIDA FERNANDEZ [facility] RESULTS PROGRESS Observed: 04/29/2025 10:14 PM Status: COMPLETED Source: [facility] Please call patient and let her know her thyroid blood test result is normal. AUTHENTICATED BY DARION SYLVESTER, ON 04/29/2025 22:14:17 TSH W/REFLEX TO FT4 Collected: 04/27/19 11:11 AM Status: F Source: [facility] Order Comment: FASTING:NO FASTING: NO TYPE CODE TESTS RESULT OUT OF RANGE REFERENCE UNITS LAB [id number] TSH W/REFLEX TO FT4 2.43 Normal 0.40-4.50 mIU/L Performed By: [facility] [facility] [address], [address] [place] [address] Corrections Officer: Candido Lawrence MD PROGRESS Observed: 04/27/2025 10:00 AM Status: COMPLETED Source: [facility] Assessment/Plan: Thyroid lesion Left thyroid lesion which [...] y.o. female Chief Complaint Patient presents with [facility] Recent DX renal Cell Carcinoma Danitza Cline is a 69 y.o. presenting to [facility]. Previous PCP: She hasn't had a family [...] a tree root. She has seen a sugar sampler, urogynecologist, colorectal surgeon, general surgeon. She has [...] the medications. My ongoing relationship with Danitza Surjit Cline requires continued responsibility and cognitive effort of [...] PHQ-2 Total Score 0 AUTHENTICATED BY DARION SYLVESTER, ON 05/06/2025 15:43:[address] SKULL BASE TO MID THIGH Observ ed: 03/18/2025 7:05 AM Status: F Source: [facility] Interpreted By: Carrington Arrieta ed, Bebe Yepez STUDY: NM PET CT SKULL BASE TO [...] CT abdomen pelvis 02/13/2025, 12/29/2012. ACCESSION NUMBER(S): [id number] ORDERING CLINICIAN: HARITHA QUARLES TECHNIQUE: DIVISION OF [...] CODING: Initial Treatment Strategy (PI) CALIBRATION: Dose Odcbluoiw-ky-Ojae Interval (mins): 60 Mediastinal bloodpool SUV (normal [...] Bo MD. This study was interpreted at [place], [place]. MACRO: None Signed by: Nimesh Arrieta 03/18/2025 9:55 AM Dictation workstation: [id number] CT CHEST W IV CONTRAST Observed: 025 6:42 AM Status: F Source: [facility] Interpreted By: Johnie Chong, and Jacinto Neal STUDY: CT CHEST W IV CONTRAST; 03/11/2025 7:08 am INDICATION: Signs/Symptoms:Follow up NHL and new kidney mass. COMPARISON: CT ABDOMEN PELVIS WO IV CONTRAST 02/13/2025, CT ANGIO CHEST FOR PE 06/01/2022 CT abdomen/pelvis 06/21/2019, CT abdomen/pelvis 12/29/2012 ACCESSION NUMBER(S): [id number] ORDERING CLINICIAN: HARITHA QUARLES TECHNIQUE: Helical data acquisition of the chest was obtained following intravenous administration of 70 mL Omnipaque 350. Images were reformatted in axial, coronal, and sagittal planes. FINDINGS: LUNGS AND AIRWAYS: The trachea and central airways are patent. There is no endobronchial lesion, although there is small amount of nonobstructive mucous material seen within trachea. Hqkw-bk-hjpteocq upper lung predominant centrilobular/paraseptal emphysematous changes. The [...] Luiz Chong 03/12/2025 6:23 AM Dictation workstation: [id number] MR BRAIN W AND WO IV CONTRAST Observed: 03/11/2025 6:40 AM Status: F Source: [facility] Interpreted By: Marlon Moser rt, STUDY: MR BRAIN W AND WO IV CONTRAST; 03/11/2025 7:41 am INDICATION: Signs/Symptoms:New renal mass with headaches.. ,C83.30 Diffuse large B-cell lymphoma, unspecified site (Multi) COMPARISON: None. ACCESSION NUMBER(S): [id number] ORDERING CLINICIAN: HARITHA QUARLES TECHNIQUE: Standard multiplanar [...] indicate metastatic disease. MACRO: None Signed by: Celestino Moser 03/13/2025 2:05 PM Dictation workstation: [employer] URINALYSIS COMPLETE W REFLEX CULTURE PANEL Collected: 02/13/2025 11:06 PM Status: F Source: [facility] Order Comment: OVER is repor christopher when the result is greater than the clinically reportable range. TYPE CODE TESTS RESULT OUT OF RANGE REFERENCE UNITS LAB 5778-6(LOINC) Observation Light-Elloree Normal L ight-Yellow , Yellow, Dark-Yellow LAB 5767-9(LOINC) Observation Ex.Turbid Normal Clear LAB 86493-8(LOINC) Observation 1.028 1.005-1.035 LAB 54217-0(LOINC) pH 5.5 5.0, 5.5, 6.0, 6.5, 7.0, 7.5, 8.0 LAB 29215-5(LOINC) Protein 100 (2+) Abnormal NEGAT HARRIS, 10 (TRACE), 20 (TRACE) mg/dL LAB 13755-8(LOINC) Glucose Normal Normal mg/dL LAB 00975-1(LOINC) Erythrocytes OVER (3+) Abnormal NEGATIVE mg/dL LAB 68261-6(LOINC) Ketones TRACE Abnormal NEGATIVE mg/dL LAB 63794-0(LOINC) Bilirubin NEGATIVE NEGATIVE mg/dL LAB 57940-2(LOINC) Urobilinogen Normal Normal mg/d L LAB 18082-8(LOINC) Nitrite NEGATIVE NEGATIVE LAB 45478-9(LOINC) Leukocyte esterase 25 Merlin/uL Abnormal NEGATIVE Performed By: YOSHI SANTIAGO ([id number] [id number]) [facility] ([facility]) [address] [place], [place] [address] URINALYSIS MICROSCOPIC PANEL Collected: 02/13/2025 11:06 PM Status: F Source: [facility] TYPE CODE TESTS RESULT OUT OF RANGE REFERENCE UNITS LAB 56001-9(LOINC ) Leukocytes 11-20 Abnormal 1-5, NONE /HPF LAB 04370-8(LOINC ) Erythrocytes >20 Abnormal NONE, 1-2, 3-5 /HPF LAB 18738-9(LOINC ) Epithelial cells.squamous 1-9 (SPARSE) Reference range not established. /HPF LAB 28961-7(LOINC ) Yeast.budding PRESENT Abnormal NONE /HPF LAB 57793-2(LOINC ) Mucus 2+ Reference range not established. /LPF LAB 99068-3(LOINC ) Calcium oxalate crystals 1+ NONE, 1+ /HPF Performed By: YOSHI SANTIAGO ([id number] [phone]) [facility] ([facility]) [address] [place] [address] BACTERIA Observed: 02/13/2025 11:06 PM Status: F Source: [facility] Test: Urine Culture Specimen Source: Clean Catch/Voided Specimen Type: Urine Specimen Date: 02/13/20252305 Result Date: 02/15/202544 Result Status: Final result Abnormal: No Resulting Lab: [facility] [address] [place] [address] CULTURE No growth Performed By: MARION Eddy ([id number]) [facility] ([facility]) [address] [place], [place] [address] COMPLETE BLOOD COUNT W AUTO DIFFERENTIAL PANEL Collected: 02/13/2025 9:28 PM Status: F Source: [facility] TYPE CODE TESTS RESULT OUT OF RANGE REFERENCE UNITS LAB 6690-2(LOINC) Leukocytes 18.0 High 4.4-11.3 x10*3/ uL LAB 76824-1(LOINC ) Erythrocytes.nu cleated/Leukocy bambi 0.0 0.0-0.0 /100 [...] 770-8(LOINC) Neutrophils/Merlin kocytes 41.5 40.0-80.0 % LAB 03391-1(LOINC ) Granulocytes.im mature/Leukocyt es 0.3 0.0-0.9 % [...] of the absolute cell counts (cells/uL). LAB 76345-6(LOINC ) Granulocytes.im mature 0.05 0.00-0.70 x10*3/uL LAB 731-0(LOINC) Lymphocytes 8.70 High 1.20-4.80 x10*3 /uL LAB 742-7(LOINC) Monocytes 1.34 High 0.10-1.00 x10*3/u L LAB 711-2(LOINC) Eosinophils 0.34 0.00-0.70 x10*3 /uL LAB 704-7(LOINC) Basophils 0.08 0.00-0.10 x10*3/u L Performed By: YOSHI SANTIAGO ([id number] [phone]) [facility] ([facility]) [address] [place] [address] COMPREHENSIVE METABOLIC 2000 PANEL Collected: 02/13/2025 9:28 PM Status: F Source: [facility] TYPE CODE TESTS RESULT OUT OF RANGE REFERENCE UNITS LAB 2345-7(LOINC) Glucose 146 High 74-99 mg/dL LAB 2951-2(LOINC) Sodium 139 136-145 mmol/L LAB 2823-3(LOINC) Potassium 3.8 3.5-5.3 mmol/L LAB 2075-0(LOINC) Chloride 103 98-107 mmol/L LAB 2027-9(LOINC) Carbon dioxide 27 21-32 mmo l/L LAB 05787-8(LOINC ) Anion gap 13 10-20 mmol/L LAB 3094-0(LOINC) Urea nitrogen 15 6-23 mg/d L LAB 2160-0(LOINC) Creatinine 0.91 0.50-1.05 mg/dL LAB 53601-3(LOINC ) Glomerular filtration rate 69 >60 mL/min/ 1.73m*2 Result Comment: Calculations of estimated GFR are performed using the 2020 CKD- EPI Study Refit equation without the race variable for the IDMS-Traceable creatinine methods. https://jasn.asnjournals.org/content//ASN.8112095169 LAB 17633-1(LOINC ) Calcium 9.8 8.6-10.3 mg/dL LAB 65849-3(LOINC ) Albumin 4.3 3.4-5.0 g/dL LAB 6768-6(LOINC) Alkaline phosphatase 64 33-136 U/L LAB 2885-2(LOINC) Protein 6.9 6.4-8.2 g/dL LAB 94085-6(LOINC ) Aspartate aminotransferase 13 9-39 U/L LAB 1975-2(LOINC) Bilirubin 0.5 0.0-1.2 mg/dL LAB 1743-4(LOINC) Alanine aminotransferase 11 7-45 U/L Result Comment: Patients sd ated with Sulfasalazine may generate falsely decreased results for ALT. Performed By: YOSHI SANTIAGO ([id number] [phone]) [facility] ([facility]) [address] [place] [address] CT ABDOMEN PELVIS WO IV CONTRAST Observed: 02/13/2025 8:59 PM Status: F Source: [facility] Interpreted By: Kwabena Sun, STUDY: CT ABDOMEN PELVIS WO IV CONTRAST; 02/13/2025 9:41 pm INDICATION: Signs/Symptoms:Right lower flank and lower quadrant pain. COMPARISON: CT abdomen and pelvis 05/17/2022. CT angiogram chest 06/01/2022. ACCESSION NUMBER(S): [id number] ORDERING CLINICIAN: ZENAIDA FERNANDEZ TECHNIQUE: CT of [...] by: Helene 02/14/2025 1:28 AM Dictation workstation: [id number] ALLERGIES DATE TYPE / CODE NAME / CODE REACTION SEVERITY SOURCE 04/12/2024 DRUG INGREDI/194746519( SNOMED CT) HYDROMORPHONE [facility] 04/12/2024 DRUG INGREDI/857755119( SNOMED CT) HYDRONVRPHONE [facility] 01/05/2018 DRUG INGREDI/921368152( SNOMED CT) GABAPENTIN [facility] 01/05/2018 DRUG INGREDI/911797629( SNOMED CT) GABAPENTIN [facility] 07/02/2005 DRUG INGREDI/195241773( SNOMED CT) MEPERIDINE [facility] ENCOUNTERS ADMIT/DISCHARGE ACCOUNT NUMBER ADMITTING ENCOUNTER CLASS LOCATION SOURCE 04/27/2025/ 6 [id number] Ambulatory Building:[facility] 03/23/2025/ 5 [id number] Ambulatory Building:[address] 03/18/2025/ 5 [id number] Ambulatory Building:[facility] 03/18/2025/ 5 [id number] Ambulatory Building:[facility] 03/11/2025/ 5 [id number] Ambulatory Building:[facility] 03/11/2025/ 5 [id number] Ambulatory Building:[facility] 02/28/2025/ 5 [id number] Ambulatory Building:[address] 02/13/2025/ [id number] Emergency Building:[facility] EDRoom: [id number] : AC14 [facility] PAYERS ENCOUNTER GUARANTOR PAYER SUBSCRIBER SOURCE 04/27/2025 DANITZA Eddy CAREYB: [place] [address]Soa: () Primary Insurance:MEDICAR E PART A & BPolicy Number: [id number] harris Date:3462-22-80VA S J15 PART A CLAIMSPO [address] [address], [place] [address]WI: DANITZA PATINOB: [id number] [place] [address]Jvx: () [facility] 03/23/2025 DANITZAEILEEN PATINOB: [place] [address]Opp: () Primary Insurance:MEDICAR EPolicy Number: [id number] harris Date:2008-06-19 DANITZA Surjit PATINOB: [id number] [place] [address]Csh: () [facility] 03/18/2025 DANITZA Surjit CLINEDOB: [place] [address]Hvu: () Primary Insurance:MEDICAR EPolicy Number: [id number] harris Date:2008-06-19 DANITZAEILEEN CLINEDOB: [id number] [place] [address]Odv: () [facility] 03/18/2025 DANITZA MIJARESTERDOB: [place] [address]Jik: () Primary Insurance:MEDICAR EPolicy Number: [id number] harris Date:2008-06-19 DANITZA Eddy SHOWALTERDOB: [id number] [place] [address]Vuk: () [facility] 03/11/2025 DANITZA Eddy SHOWALTERDOB: [place] [address]Cws: () Primary Insurance:MEDICAR EPolicy Number: [id number] harris Date:2008-06-19 DANITZA Eddy SHOWALTERDOB: [id number] [place] [address]Ddy: () [facility] 03/11/2025 DANITZA Eddy SHOWALTERDOB: [place] [address]Wsi: () Primary Insurance:MEDICAR EPolicy Number: [id number] harris Date:2008-06-19 DANITZA Eddy SHOWALTERDOB: [id number] [place] [address]Eci: () [facility] 02/28/2025 DANITZA Eddy SHOWALTERDOB: [place] [address]Rwn: () Primary Insurance:MEDICAR EPolicy Number: [id number] harris Date:2008-06-19 DANITZA Eddy SHOWALTERDOB: [id number] [place] [address]Ogf: () [facility] 02/13/2025 DANITZA Eddy SHOWALTERDOB: [place] [address]Eas: () Primary Insurance:MEDICAR EPolicy Number: [id number] harris Date:2008-06-19 DANITZA Eddy SHOWALTERDOB: [id number] [place] [address]Mlb: () [facility]
== END 2025-02-23 23:59 | disposition home or self-care (01) ==
LOC: AC 06:03 → SDC 05-06 16:30
PROVIDERS: Referring Provider Urology; Visit Provider Urology
DX: N20.0 Calculus of kidney (principal); N28.89 Other specified disorders of kidney and ureter
CPT/HCPCS: 74018; 74176; J2405